=== PATIENT | female | born 1960 | race Caucasian/White ===

== ENCOUNTER → 2018-02-27 | Outpatient (CLI) | payer OTHER ==
[~2018-02-27] MED LIST: ESTR0.5T PO; GLIM4TAB79 PO; LEVO50TA8 PO; LOSA1TAB36 PO; MAGN400C PO; METF500T7 PO; POTA10CA44 PO; SITA100T11 PO
[2018-02-27 06:18] LABS: CLARITY,URINE CLEAR (Clear); COLOR,URINE YELLOW (Yellow); GLUCOSE, URINE NEGATIVE (Neg); KETONES,URINE NEGATIVE (Neg); LEUKOCYTE ESTERASE ,URINE NEGATIVE (Neg); NITRITES, URINE NEGATIVE (Neg); OCCULT BLOOD,URINE NEGATIVE (Neg); PH,URINE 6.5 (4.8-8.0); PROTEIN,URINE NEGATIVE (Neg); UROBILINOGEN,URINE 0.2 E.U/dL (0.2-1.0)
[2018-02-27 06:21] LABS: BASOPHILS % (AUTO) 0.8 % (0-1); EOSINOPHILS # (AUTO) 0.2 X10'3 (0-0.9); HEMOGLOBIN 14.9 g/dl (12.0-16.0); LYMPHOCYTES # (AUTO) 1.7 X10'3 (1.1-4.8); LYMPHOCYTES % (AUTO) 35.9 % (21-51); MEAN CORPUSCULAR HGB CONC 34.7 % (33.0-36.5); MEAN CORPUSCULAR VOLUME 89.4 FL (78-98); MEAN PLATELET VOLUME 7.8 FL (7.4-10.4); MONOCYTES # (AUTO) 0.3 X10'3 (0-0.9); MONOCYTES % (AUTO) 5.9 % (2-12); NEUTROPHILS # (AUTO) 2.5 X10'3 (1.8-7.7); NEUTROPHILS % (AUTO) 52.4 % (42-75); PLATELET COUNT 222 X10'3 (140-440); RED BLOOD COUNT 4.81 X10'6 (4.20-5.60); WHITE BLOOD COUNT 4.7 X10'3 (4.5-11.0)
[2018-02-27 06:33] LABS: UA COLLECTION TYPE NON-SPECIFIED
[2018-02-27 06:36] LABS: HEMOGLOBIN A1C 6.3 % (4.5-6.2)
[2018-02-27 06:46] LABS: ALANINE AMINOTRANSFERASE 31 U/L (12-78); ALBUMIN 3.7 G/DL (3.4-5.0); ALBUMIN/GLOBULIN RATIO 1.2 (1.1-1.5); ALKALINE PHOSPHATASE 69 IU/L (46-116); ANION GAP 9 (8-16); ASPARTATE AMINO TRANSFERASE 18 U/L (10-37); BILIRUBIN,TOTAL 0.8 MG/DL (0.1-1.0); BLOOD UREA NITROGEN 17 MG/DL (7-18); BUN/CREATININE RATIO 28.8 (6.6-38.0); CHLORIDE 103 MMOL/L (99-107); CHOL/HDL RATIO 2.9 (0.00-4.99); CHOLESTEROL 207 MG/DL (0-200); CREATININE 0.59 MG/DL (0.40-0.90); GLUCOSE 116 MG/DL (70-104); HDL CHOLESTEROL 71 MG/DL (35-60); LDL CHOLESTEROL 115 MG/DL (50-100); POTASSIUM 4.2 MMOL/L (3.5-5.1); SODIUM 142 MMOL/L (135-145); TOTAL CARBON DIOXIDE 30.5 MMOL/L (24-32); TOTAL PROTEIN 6.9 G/DL (6.4-8.2); TRIGLYCERIDES 117 MG/DL (20-135); eGFR > 90 ML/MIN
== END | disposition home or self-care (01) ==
LOC: LAB 05:42
PROVIDERS: ATTEND Family Medicine
DX: E11.9 Type 2 diabetes mellitus without complications (principal); N39.0 Urinary tract infection, site not specified; K21.9 Gastro-esophageal reflux disease without esophagitis; E78.5 Hyperlipidemia, unspecified; I10 Essential (primary) hypertension; Z98.84 Bariatric surgery status; Z90.710 Acquired absence of both cervix and uterus; Z79.84 Long term (current) use of oral hypoglycemic drugs; Z87.891 Personal history of nicotine dependence
CPT/HCPCS: 36415; 80053; 80061; 81003; 83036; 85025

== ENCOUNTER 2018-03-04 13:29 | Outpatient (CLI) | payer OTHER ==
[2018-03-04 14:28] LABS: PHOSPHORUS 3.6 MG/DL (2.3-4.5)
[2018-03-06 07:15] LABS: TRANSFERRIN 232 mg/dL (200-370)
[2018-03-06 08:15] LABS: MICROALB/CRT, RATIO 4.5 mg/g creat (0.0-30.0)
== END 2018-03-04 23:59 | disposition home or self-care (01) ==
LOC: LAB 13:29
PROVIDERS: ATTEND Family Medicine
DX: E11.9 Type 2 diabetes mellitus without complications (principal); I10 Essential (primary) hypertension; K21.0 Gastro-esophageal reflux disease with esophagitis; E78.5 Hyperlipidemia, unspecified; R53.81 Other malaise; R53.82 Chronic fatigue, unspecified; E63.9 Nutritional deficiency, unspecified; K80.20 Calculus of gallbladder without cholecystitis without obstruction; Z98.84 Bariatric surgery status; Z90.710 Acquired absence of both cervix and uterus; Z79.84 Long term (current) use of oral hypoglycemic drugs; Z87.891 Personal history of nicotine dependence
CPT/HCPCS: 36415; 82043; 82570; 82607; 82728; 82746; 83540; 83550; 84100; 84134; 84466

== ENCOUNTER 2018-09-17 08:10 | Outpatient (CLI) | payer OTHER | END 2018-09-17 23:59 | disposition home or self-care (01) | LOC: RAD 08:10 | PROVIDERS: ATTEND Family Medicine | DX: M48.07 Spinal stenosis, lumbosacral region (principal); M25.551 Pain in right hip | CPT/HCPCS: 72110; 73522 ==

== ENCOUNTER 2020-03-21 15:32 | Outpatient (CLI) | payer BC ==
[~2020-03-21 15:32] MED LIST changes: +GLIM4TAB7 PO; -GLIM4TAB79 PO; +METF-900 PO; -METF500T7 PO
[2020-03-21 16:29] LABS: BASOPHILS % (AUTO) 0.3 % (0-1); EOSINOPHILS # (AUTO) 0.2 X10'3 (0-0.9); EOSINOPHILS % (AUTO) 3.3 % (0-6); HEMATOCRIT 42.2 % (35.0-45.0); HEMOGLOBIN 14.1 g/dl (12.0-16.0); LYMPHOCYTES # (AUTO) 2.2 X10'3 (1.1-4.8); MEAN CORPUSCULAR HEMOGLOBIN 30.8 PG (27.0-31.0); MEAN CORPUSCULAR HGB CONC 33.5 g/dL (33.0-36.5); MEAN CORPUSCULAR VOLUME 91.9 FL (78-98); MEAN PLATELET VOLUME 7.5 FL (7.4-10.4); MONOCYTES # (AUTO) 0.4 X10'3 (0-0.9); MONOCYTES % (AUTO) 6.7 % (2-12); NEUTROPHILS # (AUTO) 3.5 X10'3 (1.8-7.7); NEUTROPHILS % (AUTO) 54.7 % (42-75); PLATELET COUNT 260 X10'3 (140-440); RED BLOOD COUNT 4.59 X10'6 (4.20-5.60); RED CELL DISTRIBUTION WIDTH 13.1 % (11.5-14.5); WHITE BLOOD COUNT 6.4 X10'3 (4.5-11.0)
[2020-03-21 16:43] LABS: ALANINE AMINOTRANSFERASE 39 U/L (12-78); ALBUMIN/GLOBULIN RATIO 1.1 (1.1-1.5); ANION GAP 9 (8-16); ASPARTATE AMINO TRANSFERASE 20 U/L (10-37); BLOOD UREA NITROGEN 12 MG/DL (7-18); BUN/CREATININE RATIO 17.1 (6.6-38.0); C-REACTIVE PROTEIN 0.18 MG/DL (0.0-0.5); CALCIUM 9.6 MG/DL (8.5-10.1); CHLORIDE 105 MMOL/L (99-107); GLUCOSE 151 MG/DL (70-104); HDL CHOLESTEROL 72 MG/DL (35-60); POTASSIUM 4.1 MMOL/L (3.5-5.1); SODIUM 141 MMOL/L (135-145); TOTAL CARBON DIOXIDE 26.8 MMOL/L (24-32); TOTAL PROTEIN 7.7 G/DL (6.4-8.2); eGFR 85 ML/MIN
[2020-03-21 16:58] LABS: % IRON SATURATION 23 % (11-46); IRON 74 UG/DL (49-151); TOTAL IRON BINDING CAPACITY 322 UG/DL (259-388)
[2020-03-21 17:16] LABS: ALKALINE PHOSPHATASE 83 IU/L (46-116); BILIRUBIN,TOTAL 0.4 MG/DL (0.1-1.0); CHOL/HDL RATIO 2.3 (0.00-4.99); CHOLESTEROL 162 MG/DL (0-200); FERRITIN 90 NG/ML (8-252); LDL CHOLESTEROL 71 MG/DL (50-100); PHOSPHORUS 3.9 MG/DL (2.3-4.5); TRIGLYCERIDES 187 MG/DL (20-135)
== END 2020-03-21 23:59 | disposition home or self-care (01) ==
LOC: LAB 15:32
PROVIDERS: ATTEND Family Medicine
DX: I10 Essential (primary) hypertension (principal); E11.9 Type 2 diabetes mellitus without complications; E03.9 Hypothyroidism, unspecified; E63.9 Nutritional deficiency, unspecified; R53.81 Other malaise; K21.00 Gastro-esophageal reflux disease with esophagitis, without bleeding; R53.82 Chronic fatigue, unspecified; G62.9 Polyneuropathy, unspecified; Z98.84 Bariatric surgery status
CPT/HCPCS: 36415; 80053; 80061; 82043; 82306; 82570; 82607; 82728; 82746; 83540; 83550; 84100; 84439; 84443; 84466; 84550; 85025; 85651; 86140

== ENCOUNTER 2020-08-24 08:49 | Outpatient (CLI) | payer BC ==
[2020-08-24 09:33] LABS: BASOPHILS % (AUTO) 0.4 % (0-1); EOSINOPHILS # (AUTO) 0.2 X10'3 (0-0.9); EOSINOPHILS % (AUTO) 3.4 % (0-6); HEMATOCRIT 41.1 % (35.0-45.0); HEMOGLOBIN 13.8 g/dl (12.0-16.0); LYMPHOCYTES # (AUTO) 1.8 X10'3 (1.1-4.8); LYMPHOCYTES % (AUTO) 29.9 % (21-51); MEAN CORPUSCULAR HEMOGLOBIN 30.5 PG (27.0-31.0); MEAN CORPUSCULAR HGB CONC 33.7 g/dL (33.0-36.5); MEAN CORPUSCULAR VOLUME 90.6 FL (78-98); MEAN PLATELET VOLUME 7.4 FL (7.4-10.4); MONOCYTES # (AUTO) 0.4 X10'3 (0-0.9); MONOCYTES % (AUTO) 6.6 % (2-12); NEUTROPHILS # (AUTO) 3.6 X10'3 (1.8-7.7); NEUTROPHILS % (AUTO) 59.7 % (42-75); PLATELET COUNT 236 X10'3 (140-440); RED BLOOD COUNT 4.53 X10'6 (4.20-5.60); RED CELL DISTRIBUTION WIDTH 13.1 % (11.5-14.5)
[2020-08-24 09:45] LABS: ALBUMIN 3.9 G/DL (3.4-5.0); ANION GAP 8 (8-16); BLOOD UREA NITROGEN 13 MG/DL (7-18); BUN/CREATININE RATIO 20.6 (6.6-38.0); CALCIUM 9.1 MG/DL (8.5-10.1); CHLORIDE 104 MMOL/L (99-107); CREATININE 0.63 MG/DL (0.40-0.90); GLUCOSE 177 MG/DL (70-104); POTASSIUM 3.9 MMOL/L (3.5-5.1); SODIUM 141 MMOL/L (135-145); TOTAL CARBON DIOXIDE 29.3 MMOL/L (24-32); eGFR > 90 ML/MIN
[2020-08-24 09:54] LABS: % IRON SATURATION 28 % (11-46); IRON 94 UG/DL (49-151); TOTAL IRON BINDING CAPACITY 337 UG/DL (259-388)
[2020-08-24 10:11] LABS: ALANINE AMINOTRANSFERASE 30 U/L (12-78); ALBUMIN/GLOBULIN RATIO 1.1 (1.1-1.5); ALKALINE PHOSPHATASE 82 IU/L (46-116); ASPARTATE AMINO TRANSFERASE 23 U/L (10-37); BILIRUBIN,TOTAL 0.5 MG/DL (0.1-1.0); CHOL/HDL RATIO 2.2 (0.00-4.99); CHOLESTEROL 150 MG/DL (0-200); FERRITIN 68 NG/ML (8-252); HDL CHOLESTEROL 69 MG/DL (35-60); LDL CHOLESTEROL 64 MG/DL (50-100); PHOSPHORUS 3.3 MG/DL (2.3-4.5); TOTAL PROTEIN 7.5 G/DL (6.4-8.2); TRIGLYCERIDES 123 MG/DL (20-135)
[2020-08-25 10:26] LABS: MICROALB/CRT, RATIO 11 mg/g creat (0-29); TRANSFERRIN 273 mg/dL (192-364)
== END 2020-08-24 23:59 | disposition home or self-care (01) ==
LOC: LAB 08:49
PROVIDERS: ATTEND Family Medicine
DX: I10 Essential (primary) hypertension (principal); E78.5 Hyperlipidemia, unspecified; R53.82 Chronic fatigue, unspecified; E11.9 Type 2 diabetes mellitus without complications; E55.9 Vitamin D deficiency, unspecified; K21.01 Gastro-esophageal reflux disease with esophagitis, with bleeding; G62.9 Polyneuropathy, unspecified; Z98.84 Bariatric surgery status; Z68.35 Body mass index [BMI] 35.0-35.9, adult
CPT/HCPCS: 36415; 80053; 80061; 82043; 82306; 82570; 82607; 82728; 82746; 83540; 83550; 84100; 84439; 84443; 84466; 85025; 85651

== ENCOUNTER 2020-10-03 15:47 | Outpatient (CLI) | payer BC | END 2020-10-03 23:59 | disposition home or self-care (01) | LOC: RAD 15:47 | PROVIDERS: ATTEND Family Medicine | DX: M25.572 Pain in left ankle and joints of left foot (principal) | CPT/HCPCS: 73610; 73630 ==

== ENCOUNTER 2021-01-17 08:33 | Day surgery (SDC) | payer BC ==
[~2021-01-17] VITALS: Ht 162.6 cm; Wt 88.6 kg
[2021-01-17 08:43] VITALS: BP 166/88
[2021-01-17] MEDS ORDERED: fentaNYL/PF 50MCG/1 ML 2ML syringe ONE (09:03)
[2021-01-17] MEDS ORDERED: MIDAZolam 1 MG/ML 5ML VIAL ONE (09:03)
[2021-01-17 09:55] VITALS: BP 137/79
[2021-01-17 10:05] VITALS: BP 140/92
[2021-01-17 10:15] VITALS: BP 152/96
[2021-01-17 10:25] VITALS: BP 168/93
== END 2021-01-17 10:35 | disposition home or self-care (01) ==
LOC: GI LAB 08:33
PROVIDERS: ATTEND Internal Medicine Gastroenterology
DX: Z12.11 Encounter for screening for malignant neoplasm of colon (principal); K57.30 Diverticulosis of large intestine without perforation or abscess without bleeding; I10 Essential (primary) hypertension; Z86.010 Personal history of colon polyps; Z88.2 Allergy status to sulfonamides; Z88.5 Allergy status to narcotic agent; Z79.899 Other long term (current) drug therapy
CPT/HCPCS: 45378; 99152; J2250; J3010; J7040; Z7512; 99153; A4620

== ENCOUNTER 2021-06-07 09:55 | Outpatient (CLI) | payer BC ==
[~2021-06-07 09:55] MED LIST changes: -ESTR0.5T PO; -GLIM4TAB7 PO; -SITA100T11 PO
== END 2021-06-07 23:59 | disposition home or self-care (01) ==
LOC: RAD 09:55
PROVIDERS: ATTEND Family Medicine
DX: J40 Bronchitis, not specified as acute or chronic (principal)
CPT/HCPCS: 71046

== ENCOUNTER 2021-06-08 08:01 | Outpatient (CLI) | payer BC ==
[2021-06-08 09:07] LABS: BASOPHILS % (AUTO) 0.4 % (0-1); EOSINOPHILS # (AUTO) 0.2 X10'3 (0-0.9); EOSINOPHILS % (AUTO) 2.6 % (0-6); HEMATOCRIT 39.6 % (35.0-45.0); HEMOGLOBIN 13.5 g/dl (12.0-16.0); LYMPHOCYTES # (AUTO) 1.5 X10'3 (1.1-4.8); LYMPHOCYTES % (AUTO) 23.9 % (21-51); MEAN CORPUSCULAR HEMOGLOBIN 30.4 PG (27.0-31.0); MEAN CORPUSCULAR HGB CONC 34.2 g/dL (33.0-36.5); MEAN CORPUSCULAR VOLUME 88.9 FL (78-98); MEAN PLATELET VOLUME 6.7 FL (7.4-10.4); MONOCYTES # (AUTO) 0.4 X10'3 (0-0.9); MONOCYTES % (AUTO) 6.6 % (2-12); NEUTROPHILS # (AUTO) 4.1 X10'3 (1.8-7.7); NEUTROPHILS % (AUTO) 66.5 % (42-75); PLATELET COUNT 311 X10'3 (140-440); RED BLOOD COUNT 4.45 X10'6 (4.20-5.60); RED CELL DISTRIBUTION WIDTH 12.8 % (11.5-14.5); WHITE BLOOD COUNT 6.2 X10'3 (4.5-11.0)
[2021-06-08 09:18] LABS: HEMOGLOBIN A1C 7.5 % (4.5-6.2)
[2021-06-08] MEDS ORDERED: iohexol 300mg/ml 100ml inj. ONE (09:40)
[2021-06-08 09:43] LABS: APTT 27 SECONDS (22-32)
[2021-06-08 10:07] LABS: ALANINE AMINOTRANSFERASE 20 U/L (12-78); ALBUMIN 3.5 G/DL (3.4-5.0); ALBUMIN/GLOBULIN RATIO 0.8 (1.1-1.5); ALKALINE PHOSPHATASE 86 IU/L (46-116); ANION GAP 9 (8-16); ASPARTATE AMINO TRANSFERASE 16 U/L (10-37); BILIRUBIN,TOTAL 0.5 MG/DL (0.1-1.0); BLOOD UREA NITROGEN 12 MG/DL (7-18); BUN/CREATININE RATIO 17.9 (6.6-38.0); CALCIUM 9.3 MG/DL (8.5-10.1); CHLORIDE 100 MMOL/L (99-107); CHOL/HDL RATIO 2.2 (0.00-4.99); CHOLESTEROL 143 MG/DL (0-200); CREATININE 0.67 MG/DL (0.40-0.90); FERRITIN 128 NG/ML (8-252); GLUCOSE 142 MG/DL (70-104); HDL CHOLESTEROL 65 MG/DL (35-60); LDL CHOLESTEROL 50 MG/DL (50-100); PHOSPHORUS 3.1 MG/DL (2.3-4.5); POTASSIUM 3.8 MMOL/L (3.5-5.1); SODIUM 137 MMOL/L (135-145); TOTAL CARBON DIOXIDE 28.2 MMOL/L (24-32); TOTAL PROTEIN 7.7 G/DL (6.4-8.2); TRIGLYCERIDES 97 MG/DL (20-135); eGFR 89 ML/MIN
[2021-06-08 10:21] LABS: % IRON SATURATION 21 % (11-46); IRON 67 UG/DL (49-151); TOTAL IRON BINDING CAPACITY 320 UG/DL (259-388)
[2021-06-08 11:43] LABS: C-REACTIVE PROTEIN 1.74 MG/DL (0.0-0.5)
[2021-06-09 08:19] LABS: TRANSFERRIN 259 mg/dL (192-364)
[2021-06-09 13:45] LABS: MICROALB/CRT, RATIO 19 mg/g creat (0-29)
[2021-06-27] MEDS ORDERED: ALB0.5UD (15:06)
[2021-06-27] MEDS ORDERED: BECL10.6 PO (15:06)
[2021-06-27] MEDS ORDERED: LOSA100T57 PO (15:06)
[2021-06-27] MEDS ORDERED: BACL10TA2 PO (15:06)
== END 2021-06-08 23:59 | disposition home or self-care (01) ==
LOC: RAD 08:01
PROVIDERS: ATTEND Family Medicine
DX: I10 Essential (primary) hypertension (principal); E11.9 Type 2 diabetes mellitus without complications; E78.5 Hyperlipidemia, unspecified; E55.9 Vitamin D deficiency, unspecified; E03.9 Hypothyroidism, unspecified; K21.00 Gastro-esophageal reflux disease with esophagitis, without bleeding; E63.9 Nutritional deficiency, unspecified; K22.2 Esophageal obstruction; R91.8 Other nonspecific abnormal finding of lung field; R53.82 Chronic fatigue, unspecified; G62.9 Polyneuropathy, unspecified; I31.3 Pericardial effusion (noninflammatory); I25.10 Atherosclerotic heart disease of native coronary artery without angina pectoris; I70.0 Atherosclerosis of aorta; K44.9 Diaphragmatic hernia without obstruction or gangrene; Z90.49 Acquired absence of other specified parts of digestive tract; Z98.84 Bariatric surgery status; Z91.89 Other specified personal risk factors, not elsewhere classified
CPT/HCPCS: 71270; 80053; 80061; 82043; 82306; 82570; 82607; 82728; 82746; 83036; 83540; 83550; 83970; 84100; 84439; 84443; 84466; 85025; 85610; 85651; 85730; 86140; Q9967

== ENCOUNTER 2021-06-13 08:35 | Outpatient (CLI) | payer BC | END 2021-06-13 23:59 | disposition home or self-care (01) | LOC: RT 08:35 | PROVIDERS: ATTEND Family Medicine | DX: C34.91 Malignant neoplasm of unspecified part of right bronchus or lung (principal); R91.8 Other nonspecific abnormal finding of lung field; R94.2 Abnormal results of pulmonary function studies | CPT/HCPCS: 94060; 94727; 94729; 94760 ==

== ENCOUNTER 2021-06-20 08:14 | Outpatient (CLI) | payer BC ==
[2021-06-20] MEDS ORDERED: regadenoson 0.4mg/5ml syringe IV ONE (09:30)
[2021-06-20 09:34] VITALS: BP 158/90
[2021-06-20] MEDS ORDERED: aminophylline 250mg/10ml inj. IV ONE (09:35)
[2021-06-20 09:52] VITALS: BP 165/96
[2021-06-20 09:53] VITALS: BP 154/81
[2021-06-20 09:54] VITALS: BP 148/79
[2021-06-20 09:55] VITALS: BP 150/82
[2021-06-20 09:57] VITALS: BP 156/83
== END 2021-06-20 23:59 | disposition home or self-care (01) ==
LOC: RAD 08:14
PROVIDERS: ATTEND Internal Medicine Cardiovascular Disease
DX: I34.0 Nonrheumatic mitral (valve) insufficiency (principal); I31.3 Pericardial effusion (noninflammatory); I10 Essential (primary) hypertension; E78.5 Hyperlipidemia, unspecified
CPT/HCPCS: 78452; 93306; A9500; J0280; J2785

== ENCOUNTER 2021-06-25 15:18 | Outpatient (CLI) | payer BC ==
[2021-06-25 16:25] LABS: HCG SERUM QL NEGATIVE
[2021-06-25 16:29] LABS: LACTATE DEHYDROGENASE 213 U/L (81-234)
[2021-06-27] MEDS ORDERED: BECL10.6 (15:06)
[2021-06-27] MEDS ORDERED: ALB0.5UD (15:06)
[2021-06-27] MEDS ORDERED: BACL10TA2 PO (15:06)
[2021-06-27] MEDS ORDERED: LOSA100T57 PO (15:06)
== END 2021-06-25 23:59 | disposition home or self-care (01) ==
LOC: LAB 15:18
PROVIDERS: ATTEND Surgery
DX: D14.30 Benign neoplasm of unspecified bronchus and lung (principal)
CPT/HCPCS: 36415; 82103; 83615; 84703

== ENCOUNTER 2021-06-29 05:40 | Observation (INO) | payer BC ==
[2021-06-28 09:09] LABS: BASOPHILS % (AUTO) 0.3 % (0-1); EOSINOPHILS # (AUTO) 0.1 X10'3 (0-0.9); EOSINOPHILS % (AUTO) 1.6 % (0-6); LYMPHOCYTES # (AUTO) 1.2 X10'3 (1.1-4.8); LYMPHOCYTES % (AUTO) 20.8 % (21-51); MEAN CORPUSCULAR HEMOGLOBIN 29.9 PG (27.0-31.0); MEAN CORPUSCULAR HGB CONC 33.9 g/dL (33.0-36.5); MEAN CORPUSCULAR VOLUME 88.1 FL (78-98); MEAN PLATELET VOLUME 6.7 FL (7.4-10.4); MONOCYTES # (AUTO) 0.4 X10'3 (0-0.9); NEUTROPHILS # (AUTO) 4.2 X10'3 (1.8-7.7); NEUTROPHILS % (AUTO) 70.3 % (42-75); PRE OP HEMATOCRIT 36.7 % (35.0-45.0); PRE OP HEMOGLOBIN 12.4 g/dL (12.0-16.0); PRE OP PLATELET COUNT 317 X10'3 (140-440); RED BLOOD COUNT 4.16 X10'6 (4.20-5.60); RED CELL DISTRIBUTION WIDTH 13.1 % (11.5-14.5)
[2021-06-28 09:22] LABS: CLARITY,URINE SLIGHTLY CLOUDY (Clear); GLUCOSE, URINE NEGATIVE (Neg); KETONES,URINE TRACE mg/dl (Neg); LEUKOCYTE ESTERASE ,URINE NEGATIVE (Neg); NITRITES, URINE NEGATIVE (Neg); OCCULT BLOOD,URINE NEGATIVE (Neg); PROTEIN,URINE TRACE mg/dl (Neg); UROBILINOGEN,URINE 0.2 E.U/dL (0.2-1.0)
[2021-06-28 09:33] LABS: COLOR,URINE DARK YELLOW (Yellow); UA COLLECTION TYPE CLN CATCH MIDSTREAM
[2021-06-28 09:35] LABS: BACTERIA,URINE FEW /HPF (Neg); MUCUS STRANDS MANY /LPF (Neg); RBC,URINE 0-2 /HPF (0-2); SQUAMOUS EPITHELIAL CELL,UR FEW /LPF (FEW); WBC,URINE 0-4 /HPF (0-4)
[2021-06-28 09:41] LABS: ALBUMIN 3.6 G/DL (3.4-5.0); ALBUMIN/GLOBULIN RATIO 0.9 (1.1-1.5); ALKALINE PHOSPHATASE 89 IU/L (46-116); BLOOD UREA NITROGEN 14 MG/DL (7-18); BUN/CREATININE RATIO 22.6 (6.6-38.0); CALCIUM 9.4 MG/DL (8.5-10.1); CHLORIDE 104 MMOL/L (99-107); CREATININE 0.62 MG/DL (0.40-0.90); PRE OP ALT 20 U/L (30-65); PRE OP AST 14 U/L (10-37); PRE OP BILIRUB, TOTAL 0.5 MG/DL (0.0-1.0); PRE OP GLUCOSE 195 MG/DL (70-104); PRE OP POTASSIUM 4.2 MMOL/L (3.4-5.1); PRE OP SODIUM 144 MMOL/L (135-145); TOTAL PROTEIN 7.4 G/DL (6.4-8.2); eGFR > 90 ML/MIN
[2021-06-28 09:45] LABS: PRE OP ANION GAP 13 (8-16)
[2021-06-28 10:02] LABS: PRE OP INR 1.1 INR
[2021-06-29] VITALS (9 sets, daily range): BP systolic 128–190; BP diastolic 51–95
[~2021-06-29] VITALS: Ht 152.4 cm; Wt 86.0 kg
[~2021-06-29 05:40] MED LIST changes: +ALB0.5UD; +BACL10TA2 PO; +BECL10.6 PO; +LOSA100T57 PO; -LOSA1TAB36 PO; -MAGN400C PO; -METF-900 PO; -POTA10CA44 PO; +albuterol 2.5 MG/3 ML nebule NEB ONE; +cefazolin/dext.iso 2gm/50ml IV ONE; +famotidine 20mg tablet PO ONE; +ringers solution, lacted 1,000 ML IV SCH
[2021-06-29] MEDS ORDERED: LIDOcaine 1% (10mg/ml) 2ml vial ONE (06:47)
[2021-06-29] MEDS ORDERED: sevoflurane 250ml liquid IH ONE (08:24)
[2021-06-29] MEDS ORDERED: ondansetron/PF 4mg/2ml inj ONE (08:24)
[2021-06-29] MEDS ORDERED: midazolam 1 mg/ML 2ml injection ONE (08:28)
[2021-06-29] MEDS ORDERED: ondansetron/PF 4mg/2ml inj IV PRN ×2 (09:15→10:00)
[2021-06-29] MEDS ORDERED: hydrALAZINE 20mg/ml inj. IV PRN (09:15)
[2021-06-29] MEDS ORDERED: meperidine/PF 25mg/ml syringe IV PRN ×3 (09:15)
[2021-06-29] MEDS ORDERED: proCHLORperazine 10 MG/2 ml inj IV PRN (09:15)
[2021-06-29] MEDS ORDERED: acetaminophen 1,000mg/100ml IV 100 ML IV PRN (09:15)
[2021-06-29] MEDS ORDERED: labetalol 20mg/4ml (5mg/ml) syringe IV PRN (09:15)
[2021-06-29] MEDS ORDERED: ringers solution, lacted 1,000 ML IV SCH (09:15)
[2021-06-29] MEDS ORDERED: morphine 4 MG/ML inj SYRINge IV PRN (09:15)
[2021-06-29] MEDS ORDERED: propofol inj 20 ML IV ONE ×2 (09:18)
[2021-06-29] MEDS ORDERED: ePHEDrine 50MG/ML INJ. ONE (09:18)
[2021-06-29] MEDS ORDERED: rocuronium 10mg/ml inj IV ONE (09:18)
[2021-06-29] MEDS ORDERED: fentaNYL /PF 50mcg/ml 5ml ampule ONE (09:18)
[2021-06-29] MEDS ORDERED: LIDOcaine 2% (20mg/ml) 5ml vial ONE (09:18)
[2021-06-29] MEDS ORDERED: dexamethasone sod phosphate 4mg/ml inj. ONE (09:18)
[2021-06-29] MEDS ORDERED: 0.9 % SODIUM CHLORIDE 10 ML VIAL ONE (09:18)
[2021-06-29] MEDS ORDERED: neostigmine methylsulfate 1 MG/ML 10ml vial ONE (09:38)
[2021-06-29] MEDS ORDERED: glycopyrrolate 0.2mg/ml inj ONE (09:38)
[2021-06-29] MEDS ORDERED: Potassium Cl inj 20 MEQ in ringers solution, lacted 1,000 ML IV SCH (10:00)
[2021-06-29] MEDS ORDERED: HYDROcodone/acetaminophen 5mg/325mg tablet PO PRN (10:00)
--- NOTE | 2021-06-29 10:02 | NUR ---
Received from OR via RIP , accompanied by Anesthesiologist DEYSI and report given by Anesthesiolgist. PATIENT WITH 20G PIV IN LEFT AND ART LINE IN RIGHT UE. HYPERTENSIVE OMNI CELL REBOOTING. WILL ADMINISTER MEDS ARDEN ONCE BOOTED UP. PATIENT WITH SINGLE DRESSING TO UPPER STERNUM. Addendum: 06/29/21 at 1010 by Prabhu Thurman RN, RN Amended: Links added.
[2021-06-29] MEDS ORDERED: potassium 20mEq/D5LR 1,000 ML IV SCH (10:30)
--- NOTE | 2021-06-29 11:12 | NUR ---
PATIENT HAS MET ALL CRITERIA FOR TRANSFER TO THE SURGICAL/LUIS/PCU/ORTHO/ICU FLOOR. VSS. DRESSINGS INTACT. BED LOW, CALL LIGHT PRESENT AND 2 RAILS UP. RN PRESENT TO ACCEPT CARE OF PATIENT AND REPORT HAS BEEN CALLED. ALL QUESTIONS ANSWERED TO ACCEPTING RN. DRESSING TO STERNUM CDI AT THIS TIME AND RN PRESENT TO ACCEPT PATIENT. PATIENT ABLE TO SCOOT FROM GURNEY TO BED INDEPENDENTLY. Addendum: 06/29/21 at 1122 by Prabhu Gates - FAVIAN RN Amended: Links added.
--- NOTE | 2021-06-29 11:30 | NUR ---
Patient admitted to ACCE AAOX3 DX:paratracheal mass, mediastenoscopy.c/o pain, pain med administered as prescribed. V/S as follow T98.3 HR87 R14 B/P128/82 O2 94%
[2021-06-29] MEDS: morphine 2 MG/ML inj. syringe IV PRN ×2 (11:48→14:31)
[2021-06-29] MEDS ORDERED: Chloraseptic (Phenol) Spray 177ml MM PRN (12:55)
[2021-06-29] MEDS ORDERED: ALBU17AE26 PO (13:18)
[2021-06-29] MEDS ORDERED: ceFAZolin/D5W- 1GM premix 50 ML IV SCH (16:00)
== END 2021-06-29 17:49 | disposition home or self-care (01) ==
LOC: PAS 05:40 → MED 3N 09:58
PROVIDERS: ADMIT Surgery; ATTEND Surgery
DX: J39.8 Other specified diseases of upper respiratory tract (principal); Z20.822 Contact with and (suspected) exposure to COVID-19; J45.909 Unspecified asthma, uncomplicated; E11.9 Type 2 diabetes mellitus without complications; I10 Essential (primary) hypertension; E78.00 Pure hypercholesterolemia, unspecified; Z87.891 Personal history of nicotine dependence; Z79.899 Other long term (current) drug therapy
CPT/HCPCS: 36415; 39401; 71045; 80053; 81001; 82948; 85025; 85610; 85730; 86885; 86900; 86901; 87635; 93005; 96365; 96375; 96376; A6258; C1758; C9803; G0378; J0360; J0690; J1100; J2250; J2270; J2405; J2704; J2710; J3010; J3480; J3490; J7120; A4215; A4618; A7000

== ENCOUNTER 2021-07-10 08:48 | Outpatient (CLI) | payer BC ==
[~2021-07-10 08:48] MED LIST changes: +ALBU17AE26 PO; -albuterol 2.5 MG/3 ML nebule NEB ONE; -cefazolin/dext.iso 2gm/50ml IV ONE; -famotidine 20mg tablet PO ONE; -ringers solution, lacted 1,000 ML IV SCH
[2021-07-10] MEDS ORDERED: iohexol 300mg/ml 100ml inj. ONE (09:04)
== END 2021-07-10 23:59 | disposition home or self-care (01) ==
LOC: 64 CT 08:48
PROVIDERS: ATTEND Internal Medicine Hematology & Oncology
DX: C34.02 Malignant neoplasm of left main bronchus (principal)
CPT/HCPCS: 70470; Q9967

== ENCOUNTER 2021-07-12 07:07 | Day surgery (SDC) | payer BC ==
[~2021-07-12] VITALS: Ht 162.6 cm; Wt 88.0 kg
[~2021-07-12 07:07] MED LIST changes: -ALB0.5UD
[2021-07-12] MEDS ORDERED: normal saline 1000ml 1,000 ML IV PRN (07:30)
[2021-07-12] MEDS ORDERED: TYLENOL PO (08:05)
[2021-07-12] MEDS ORDERED: ONDA4TAB12 PO (08:05)
[2021-07-12] MEDS ORDERED: ALLO300T8 PO (08:05)
[2021-07-12] MEDS ORDERED: BENZ-49 PO (08:05)
[2021-07-12] MEDS ORDERED: LORA10TA7 PO (08:05)
[2021-07-12 08:15] VITALS: BP 154/91
[2021-07-12] MEDS ORDERED: heparin sodium, porcine/PF 100unit/ml 5ML syringe ONE (08:45)
[2021-07-12] MEDS ORDERED: LIDOcaine 1% 30ml preserv. free vial ONE (08:45)
[2021-07-12] MEDS ORDERED: midazolam 1 mg/ML 2ml injection ONE (08:45)
[2021-07-12] MEDS ORDERED: fentaNYL/PF 50MCG/1 ML 2ML syringe ONE ×2 (08:45→09:57)
[2021-07-12] MEDS ORDERED: normal saline 1000ml 1,000 ML IV SCH (09:10)
[2021-07-12] MEDS ORDERED: iohexol 300 MG/1 ML 50ml polymer ONE (09:40)
[2021-07-12 11:45] VITALS: BP 154/91
== END 2021-07-12 11:45 | disposition home or self-care (01) ==
LOC: SSTAY O 07:07
PROVIDERS: ATTEND Radiology Diagnostic Radiology
DX: C34.02 Malignant neoplasm of left main bronchus (principal); I10 Essential (primary) hypertension; E11.9 Type 2 diabetes mellitus without complications; Z85.118 Personal history of other malignant neoplasm of bronchus and lung; Z90.710 Acquired absence of both cervix and uterus; Z98.890 Other specified postprocedural states; Z87.891 Personal history of nicotine dependence; Z88.2 Allergy status to sulfonamides; Z88.5 Allergy status to narcotic agent; Z79.899 Other long term (current) drug therapy; Z83.3 Family history of diabetes mellitus
CPT/HCPCS: 36561; 76937; 77001; 99152; 99153; C1769; C1788; C1894; J1642; J2250; J3010; J3490; Q9967

== ENCOUNTER 2021-07-16 12:06 | Outpatient (CLI) | payer BC ==
[~2021-07-16 12:06] MED LIST changes: -ALBU17AE26 PO; +ALLO300T8 PO; -BACL10TA2 PO; -BECL10.6 PO; +BENZ-49 PO; +LORA10TA7 PO; +ONDA4TAB12 PO; +TYLENOL PO
[2021-07-16 12:51] LABS: BASOPHILS % (AUTO) 0.4 % (0-1); EOSINOPHILS # (AUTO) 0.1 X10'3 (0-0.9); EOSINOPHILS % (AUTO) 1.8 % (0-6); HEMATOCRIT 36.4 % (35.0-45.0); LYMPHOCYTES # (AUTO) 1.3 X10'3 (1.1-4.8); LYMPHOCYTES % (AUTO) 22.6 % (21-51); MEAN CORPUSCULAR HEMOGLOBIN 29.4 PG (27.0-31.0); MEAN CORPUSCULAR HGB CONC 33.1 g/dL (33.0-36.5); MEAN PLATELET VOLUME 7.2 FL (7.4-10.4); MONOCYTES # (AUTO) 0.4 X10'3 (0-0.9); MONOCYTES % (AUTO) 7.5 % (2-12); NEUTROPHILS % (AUTO) 67.7 % (42-75); PLATELET COUNT 276 X10'3 (140-440); RED BLOOD COUNT 4.09 X10'6 (4.20-5.60); RED CELL DISTRIBUTION WIDTH 13.1 % (11.5-14.5)
[2021-07-16 13:16] LABS: ALANINE AMINOTRANSFERASE 18 U/L (12-78); ALBUMIN 3.3 G/DL (3.4-5.0); ALBUMIN/GLOBULIN RATIO 0.8 (1.1-1.5); ALKALINE PHOSPHATASE 88 IU/L (46-116); ANION GAP 11 (8-16); ASPARTATE AMINO TRANSFERASE 14 U/L (10-37); BILIRUBIN,TOTAL 0.4 MG/DL (0.1-1.0); BLOOD UREA NITROGEN 18 MG/DL (7-18); BUN/CREATININE RATIO 24.7 (6.6-38.0); CALCIUM 8.9 MG/DL (8.5-10.1); CHLORIDE 103 MMOL/L (99-107); CREATININE 0.73 MG/DL (0.40-0.90); FERRITIN 143 NG/ML (8-252); GLUCOSE 247 MG/DL (70-104); MAGNESIUM 1.4 MG/DL (1.5-2.4); SODIUM 142 MMOL/L (135-145); TOTAL CARBON DIOXIDE 28.4 MMOL/L (24-32); TOTAL PROTEIN 7.3 G/DL (6.4-8.2); eGFR 81 ML/MIN
[2021-07-16 14:02] LABS: % IRON SATURATION 15 % (11-46); IRON 43 UG/DL (49-151); TOTAL IRON BINDING CAPACITY 292 UG/DL (259-388)
[2021-07-18 11:31] LABS: TRANSFERRIN 247 mg/dL (192-364)
== END 2021-07-16 23:59 | disposition home or self-care (01) ==
LOC: LAB 12:06
PROVIDERS: ATTEND Internal Medicine Hematology & Oncology
DX: C34.90 Malignant neoplasm of unspecified part of unspecified bronchus or lung (principal); I87.1 Compression of vein
CPT/HCPCS: 36415; 80053; 82607; 82728; 83540; 83550; 83735; 84466; 85025

== ENCOUNTER 2021-07-19 06:45 | Day surgery (SDC) | payer BC ==
[~2021-07-19] VITALS: Ht 162.6 cm; Wt 87.7 kg
[2021-07-19] MEDS ORDERED: PROC5TAB56 PO (07:45)
[2021-07-19] MEDS ORDERED: METF-900 PO (07:45)
[2021-07-19 07:58] VITALS: BP 146/75
[2021-07-19] MEDS ORDERED: tPA-cathflo 2 MG/2 ml IV flush ONE (08:28)
[2021-07-19] MEDS ORDERED: iohexol 300 MG/1 ML 50ml polymer ONE (08:28)
[2021-07-19 09:09] VITALS: BP 156/79
[2021-07-19 09:24] VITALS: BP 140/71
== END 2021-07-19 09:55 | disposition home or self-care (01) ==
LOC: SSTAY O 06:45
PROVIDERS: ATTEND Radiology Diagnostic Radiology
DX: T82.598A Other mechanical complication of other cardiac and vascular devices and implants, initial encounter (principal); C34.02 Malignant neoplasm of left main bronchus; Z88.2 Allergy status to sulfonamides; Z88.5 Allergy status to narcotic agent; Y83.8 Other surgical procedures as the cause of abnormal reaction of the patient, or of later complication, without mention of misadventure at the time of the procedure; Y92.89 Other specified places as the place of occurrence of the external cause
CPT/HCPCS: 36598; J2997; Q9967

== ENCOUNTER 2021-07-22 13:34 | Inpatient (IN) | payer BC ==
[2021-07-22] VITALS (14 sets, daily range): BP systolic 47–118; BP diastolic 22–68
[~2021-07-22] VITALS: Ht 162.6 cm; Wt 98.9 kg
[~2021-07-22 13:34] MED LIST changes: +LIDOCAINE 2% 5 ML JELLY.ML. tube MM ONE; +METF-900 PO; +PROC5TAB56 PO; +rocuronium 10mg/ml inj IV ONE
[2021-07-22] MEDS ORDERED: normal saline 1000ML IV soln IV ONE (13:45)
--- NOTE | 2021-07-22 13:45 | NUR ---
Epi 0.5 mg IV once now for blood pressure and heart rate control.
--- NOTE | 2021-07-22 13:51 | NUR ---
Calicium Chloride 1,000 mg administered.
[2021-07-22 14:05] LABS: BASOPHILS % (AUTO) 0.1 % (0-1); EOSINOPHILS % (AUTO) 0 % (0-6); LYMPHOCYTES # (AUTO) 0.9 X10'3 (1.1-4.8); LYMPHOCYTES % (AUTO) 2.2 % (21-51); MEAN PLATELET VOLUME 8.2 FL (7.4-10.4); MONOCYTES # (AUTO) 0.4 X10'3 (0-0.9); NEUTROPHILS # (AUTO) 39.4 X10'3 (1.8-7.7); NEUTROPHILS % (AUTO) 96.7 % (42-75); PLATELET COUNT 349 X10'3 (140-440)
--- NOTE | 2021-07-22 14:06 | NUR ---
Arterial line placed by Dr. Romero
[2021-07-22 14:07] LABS: WHITE BLOOD COUNT 40.7 X10'3 (4.5-11.0)
[2021-07-22] MEDS ORDERED: iohexol 350MG/ML 100ml bottle IV ONE (14:07)
[2021-07-22 14:14] LABS: HEMATOCRIT 38.1 % (35.0-45.0); HEMOGLOBIN 12.2 g/dl (12.0-16.0); MEAN CORPUSCULAR HEMOGLOBIN 29.9 PG (27.0-31.0); MEAN CORPUSCULAR VOLUME 93.4 FL (78-98); RED BLOOD COUNT 4.08 X10'6 (4.20-5.60); RED CELL DISTRIBUTION WIDTH 13.3 % (11.5-14.5)
[2021-07-22] MEDS ORDERED: CefTRIAXone 2gm/D5W 50ml BAG 50 ML IV ONE (14:15)
[2021-07-22] MEDS ORDERED: sodium bicarbonate (8.4%) inj. 100 MEQ in dextrose 5%-water 1,000 ML IV ONE (14:15)
--- NOTE | 2021-07-22 14:15 | NUR ---
Per dr. Romero verbal order patient received 2 amps of bicarb 100 mEq IV once now.
--- NOTE | 2021-07-22 14:19 | NUR ---
Central line ok for use per Dr. Romero.
[2021-07-22] MEDS ORDERED: NOREPINEPHRINE BITARTRATE/D5W 250 ML IV PRN ×2 (14:20→14:40)
--- NOTE | 2021-07-22 14:22 | NUR ---
Administered 0.25 mg epi IV through central line per Dr. Cruz [facility] verbal order due to blood pressure of 79/40 mmHg. Patient blood pressure increased to 165/100 mmHg.
[2021-07-22 14:27] LABS: BURR CELLS 1+; PLATELET ESTIMATE NORMAL; TOTAL CELLS COUNTED 100
[2021-07-22] MEDS ORDERED: DEXTROSE 15 GM of carb/4 tabs (each vial/BOTTLE has 4 tablets) PO PRN ×2 (14:40)
[2021-07-22] MEDS ORDERED: LIDOcaine 2% 10ml TOPICAL JELLY (Urojet) TP ONE (14:40)
[2021-07-22] MEDS ORDERED: insulin Lispro (HumaLOG) vial - multi-dose SQ SCH (14:40)
[2021-07-22] MEDS ORDERED: PERFLUTREN PROTEIN-A MICROSPHR (Optison) 0.22 MG/ML 3ML VIAL IV ONE (14:40)
[2021-07-22] MEDS ORDERED: magnesium hydroxide 30ml (MOM) UD suspension PO PRN (14:40)
[2021-07-22] MEDS ORDERED: dextrose 50%-water 50ml dispensing syringe IV PRN ×2 (14:40)
[2021-07-22] MEDS ORDERED: MESSAGE TO PHARMACY PO ONE (14:40)
[2021-07-22] MEDS ORDERED: acetaminophen 325mg tablet PO PRN (14:40)
[2021-07-22] MEDS ORDERED: ondansetron/PF 4mg/2ml inj IV PRN (14:40)
[2021-07-22] MEDS: midazolam 100mg in NS 100ml 100 ML IV SCH ×2 (14:40→19:04)
[2021-07-22] MEDS ORDERED: potassium Cl 20 mEq SR tablet PO PRN ×4 (14:40→22:30)
[2021-07-22] MEDS ORDERED: glucagon, human recombinant 1mg kit SUBCUT PRN (14:40)
[2021-07-22 14:45] LABS: ALANINE AMINOTRANSFERASE 31 U/L (12-78); ALBUMIN/GLOBULIN RATIO 0.7 (1.1-1.5); ALKALINE PHOSPHATASE 174 IU/L (46-116); ASPARTATE AMINO TRANSFERASE 49 U/L (10-37); BILIRUBIN,TOTAL 0.2 MG/DL (0.1-1.0); BLOOD UREA NITROGEN 129 MG/DL (7-18); BUN/CREATININE RATIO 17.5 (6.6-38.0); CALCIUM 9.3 MG/DL (8.5-10.1); CREATINE KINASE 146 U/L (26-192); CREATININE 7.36 MG/DL (0.40-0.90); GLUCOSE 151 MG/DL (70-104); MAGNESIUM 3.4 MG/DL (1.5-2.4); TOTAL PROTEIN 7.6 G/DL (6.4-8.2); eGFR 6 ML/MIN
[2021-07-22 14:48] LABS: TOTAL CARBON DIOXIDE < 5 MMOL/L (24-32)
--- NOTE | 2021-07-22 14:56 | NUR ---
notified md saunders 31.7
[2021-07-22 15:03] LABS: ABG BASE EXCESS -30.8 mmol/L (-2.0-2.0); ABG HCO3 3.7 mmol/L (22.0-26.0); ABG OXYGEN SATURATION 97.8 % (94-97); ABG PCO2 (T) 21.2 mmHg (32.0-45.0); ABG PO2 (T) 125.8 mmHg (75.0-100.0); FCOHb 0.3 % (0.0-3.9); FMetHb 0.3 % (0.0-1.5); FO2Hb 97.2 % (94-97); PATIENT TEMPERATURE 31.7; PEEP 5 cm H2O; RESPIRATORY RATE 24 b/min; TIDAL VOLUME 400 mL; TOTAL HEMOGLOBIN 11.9 G/dl (12.0-16.0)
--- NOTE | 2021-07-22 15:25 | NUR ---
Patient to CT then to ICU with RT and Primary RN.
[2021-07-22 15:26] LABS: ACETAMINOPHEN 8.4 UG/ML (10-30)
[2021-07-22 15:58] LABS: CHLORIDE 98 MMOL/L (99-107); POTASSIUM 4.6 MMOL/L (3.3-5.1); SODIUM 149 MMOL/L (135-145)
[2021-07-22 15:59] LABS: ANION GAP 46 (8-12); CARBON DIOXIDE < 5 MMOL/L (24-32)
[2021-07-22] MEDS ORDERED: albumin (human) 25% 100ml IV 100 ML IV PRN (16:25)
[2021-07-22] MEDS ORDERED: heparin 1,000 units/ml 10ml inj IV ONE (16:25)
[2021-07-22] MEDS ORDERED: heparin 1,000unit/ml 10ml vial 10 ML IV ONE (16:25)
[2021-07-22] MEDS ORDERED: ZOLP5TAB8 PO (16:30)
[2021-07-22] MEDS ORDERED: OLAN2.5T28 PO (16:30)
[2021-07-22] MEDS ORDERED: LORA-268 PO (16:30)
[2021-07-22] MEDS ORDERED: LEVO50TA PO (16:30)
[2021-07-22] MEDS ORDERED: ALBU8.5H17 PO (16:30)
[2021-07-22] MEDS ORDERED: ROSU5TAB12 PO (16:30)
[2021-07-22] MEDS ORDERED: ALLO100T PO (16:30)
[2021-07-22] MEDS ORDERED: LIDO700A47 TOP (16:30)
[2021-07-22] MEDS ORDERED: HYDR-3965 PO (16:30)
[2021-07-22] MEDS ORDERED: BACL10TA2 PO (16:30)
[2021-07-22] MEDS ORDERED: BECL10.6 PO (16:30)
[2021-07-22] MEDS ORDERED: heparin 1,000 units/ml 10ml inj HE ONE ×2 (16:30)
[2021-07-22] MEDS ORDERED: PROC10TA10 PO (16:30)
[2021-07-22] MEDS ORDERED: ONDA-104 PO (16:30)
[2021-07-22] MEDS ORDERED: ringers solution, lacted 1,000 ML IV ONE (17:25)
[2021-07-22] MEDS ORDERED: amiodarone 150mg/dext, iso-os 100 ML IV ONE (17:45)
[2021-07-22] MEDS ORDERED: amiodarone 50MG/ML inj IV ONE (17:50)
--- NOTE | 2021-07-22 18:30 | NUR ---
Patient in room CICU 2010. I have received report from Keeley BALLESTEROS and had the opportunity to ask questions and assume patient care.
[2021-07-22] MEDS ORDERED: VANCOMYCIN IV ONE (18:50)
[2021-07-22] MEDS ORDERED: NS IV ONE (18:50)
--- NOTE | 2021-07-22 18:51 | NUR ---
1545- Pt arrived via gurney, non responsive, art line infiltrated, small visible hematoma. pupils equal and responsive, pt temp 31.2, comfirmed with temporal thermometer also. dc'd right groin art line. WBC elevated, attributed to neupogen injection yesterday. 1615- Dr Muller placing an art line and barb cath in left groin. 1630- Dr Squires rounded. Dialysis tomorrow also. 1700- Going into a fib, BP 77/38, notified, give the 1 liter bolus of LR now instead of after dialysis, 150mg amiodarone bolus only x 1. , ABG 30 minutes after HD completed.
[2021-07-22] MEDS: NORepinephrine 8mg/ 250ml NS 250 ML IV PRN ×3 (18:53→22:46)
--- NOTE | 2021-07-22 18:59 | NUR ---
Problems reprioritized. Patient report given, questions answered & plan of care reviewed with Jo Ann.
--- NOTE | 2021-07-22 19:30 | NUR ---
Spoke with Dr Menchaca regarding patient being in Afib with a rate in the 150-160. New orders received to start Amnio drip
[2021-07-22] MEDS: amiodarone/D5 360MG/200ML BAG 200 ML IV SCH (19:33)
[2021-07-22] MEDS: famotidine/PF 10 mg/ml inj IV SCH (20:20)
[2021-07-22] MEDS: cefepime 1GM in D5W 50mL 50 ML IV SCH (20:21)
[2021-07-22 20:44] LABS: ABG BASE EXCESS -15.1 mmol/L (-2.0-2.0); ABG HCO3 9.7 mmol/L (22.0-26.0); ABG OXYGEN SATURATION 98.2 % (94-97); ABG PCO2 (T) 19.5 mmHg (32.0-45.0); ABG PO2 (T) 106.4 mmHg (75.0-100.0); FCOHb 0.3 % (0.0-3.9); FMetHb 0.3 % (0.0-1.5); FO2Hb 97.6 % (94-97); PATIENT TEMPERATURE 35.1; PEEP 5 cm H2O; RESPIRATORY RATE 24 b/min; TIDAL VOLUME 400 mL; TOTAL HEMOGLOBIN 12.3 G/dl (12.0-16.0)
[2021-07-22] MEDS ORDERED: sennosides/docusate sodium tablet PO SCH (21:00)
[2021-07-22] MEDS: dexmedetomidine/D5W 100mL 100 ML IV SCH (21:40)
[2021-07-22 21:46] LABS: BASOPHILS # (AUTO) 0.1 X10'3 (0-0.2); BASOPHILS % (AUTO) 0.3 % (0-1); EOSINOPHILS % (AUTO) 0 % (0-6); HEMATOCRIT 32.9 % (35.0-45.0); HEMOGLOBIN 10.8 g/dl (12.0-16.0); LYMPHOCYTES # (AUTO) 0.4 X10'3 (1.1-4.8); LYMPHOCYTES % (AUTO) 1.8 % (21-51); MEAN CORPUSCULAR HEMOGLOBIN 29.4 PG (27.0-31.0); MEAN CORPUSCULAR HGB CONC 32.8 g/dL (33.0-36.5); MEAN CORPUSCULAR VOLUME 89.6 FL (78-98); MEAN PLATELET VOLUME 7.6 FL (7.4-10.4); MONOCYTES # (AUTO) 0.1 X10'3 (0-0.9); MONOCYTES % (AUTO) 0.3 % (2-12); NEUTROPHILS # (AUTO) 23.6 X10'3 (1.8-7.7); NEUTROPHILS % (AUTO) 97.6 % (42-75); PLATELET COUNT 282 X10'3 (140-440); RED BLOOD COUNT 3.67 X10'6 (4.20-5.60); RED CELL DISTRIBUTION WIDTH 13.3 % (11.5-14.5); WHITE BLOOD COUNT 24.2 X10'3 (4.5-11.0)
--- NOTE | 2021-07-22 22:00 | NUR ---
Dr Menchaca at bedside via [employer] [facility] to complete patient assessment. New orders received. Criticals called to
--- NOTE | 2021-07-22 22:00 | NUR ---
New orders for EKG.
[2021-07-22 22:09] LABS: ALANINE AMINOTRANSFERASE 45 U/L (12-78); ALBUMIN 2.9 G/DL (3.4-5.0); ALBUMIN/GLOBULIN RATIO 0.9 (1.1-1.5); ALKALINE PHOSPHATASE 123 IU/L (46-116); ASPARTATE AMINO TRANSFERASE 86 U/L (10-37); BILIRUBIN,DIRECT 0.2 MG/DL (0-0.3); BILIRUBIN,TOTAL 0.5 MG/DL (0.1-1.0); BLOOD UREA NITROGEN 56 MG/DL (7-18); BUN/CREATININE RATIO 16.3 (6.6-38.0); CALCIUM 7.7 MG/DL (8.5-10.1); CHLORIDE 98 MMOL/L (99-107); CREATININE 3.43 MG/DL (0.40-0.90); GLUCOSE 239 MG/DL (70-104); LACTATE DEHYDROGENASE 445 U/L (81-234); PHOSPHORUS 5.9 MG/DL (2.3-4.5); SODIUM 142 MMOL/L (135-145); eGFR 14 ML/MIN
[2021-07-22 22:12] LABS: ANION GAP 36 (8-16)
[2021-07-22 22:13] LABS: POTASSIUM 2.7 MMOL/L (3.5-5.1); TOTAL CARBON DIOXIDE 8.5 MMOL/L (24-32)
[2021-07-22] MEDS ORDERED: magnesium 4gm in 100ml NS 100 ML IV PRN (22:30)
[2021-07-22] MEDS: K and/or MAG REPLACEMENT MC SCH (22:30)
[2021-07-22] MEDS ORDERED: magnesium 2GM in 50ml NS 50 ML IV PRN (22:30)
[2021-07-22] MEDS: potassium Cl 20mEq/100mL bag 100 ML IV PRN ×2 (22:51→23:34)
[2021-07-23] VITALS (35 sets, daily range): BP systolic 51–180; BP diastolic 25–85
[2021-07-23] MEDS: potassium Cl 20mEq/100mL bag 100 ML IV PRN ×4 (00:21→20:34)
[2021-07-23] MEDS: amiodarone/D5 360MG/200ML BAG 200 ML IV SCH (00:21)
[2021-07-23] MEDS: NORepinephrine 8mg/ 250ml NS 250 ML IV PRN (00:21)
[2021-07-23] MEDS: midazolam 100mg in NS 100ml 100 ML IV SCH ×2 (01:20→18:56)
[2021-07-23] MEDS: NORepinephrine 32 MG in Normal Saline 250ml IV soln IV SCH ×2 (02:05→18:55)
[2021-07-23] MEDS ORDERED: vasopressin inj. 40 UNIT in dextrose 5%-water 50ml 38 ML IV SCH (02:25)
[2021-07-23 02:45] LABS: ABG BASE EXCESS -18.8 mmol/L (-2.0-2.0); ABG HCO3 6.9 mmol/L (22.0-26.0); ABG OXYGEN SATURATION 98.6 % (94-97); ABG PO2 (T) 161.1 mmHg (75.0-100.0); FCOHb 0.2 % (0.0-3.9); FMetHb 0.3 % (0.0-1.5); FO2Hb 98.1 % (94-97); PATIENT TEMPERATURE 36.6; PEEP 5 cm H2O; RESPIRATORY RATE 24 b/min; TIDAL VOLUME 400 mL
[2021-07-23] MEDS ORDERED: sodium bicarbonate (8.4%) inj. 150 MEQ in dextrose 5%-water 1,000 ML IV SCH (02:55)
[2021-07-23 03:28] LABS: BASOPHILS % (AUTO) 0.2 % (0-1); EOSINOPHILS % (AUTO) 0.1 % (0-6); HEMATOCRIT 32.9 % (35.0-45.0); HEMOGLOBIN 10.8 g/dl (12.0-16.0); LYMPHOCYTES # (AUTO) 0.4 X10'3 (1.1-4.8); LYMPHOCYTES % (AUTO) 2.3 % (21-51); MEAN CORPUSCULAR HEMOGLOBIN 29.5 PG (27.0-31.0); MEAN CORPUSCULAR HGB CONC 32.8 g/dL (33.0-36.5); MEAN CORPUSCULAR VOLUME 89.7 FL (78-98); MEAN PLATELET VOLUME 7.8 FL (7.4-10.4); MONOCYTES # (AUTO) 0.1 X10'3 (0-0.9); MONOCYTES % (AUTO) 0.5 % (2-12); NEUTROPHILS # (AUTO) 18.4 X10'3 (1.8-7.7); NEUTROPHILS % (AUTO) 96.9 % (42-75); PLATELET COUNT 269 X10'3 (140-440); RED BLOOD COUNT 3.67 X10'6 (4.20-5.60); RED CELL DISTRIBUTION WIDTH 13.2 % (11.5-14.5)
[2021-07-23 03:49] LABS: ALBUMIN 2.6 G/DL (3.4-5.0); BLOOD UREA NITROGEN 53 MG/DL (7-18); BUN/CREATININE RATIO 13.6 (6.6-38.0); CALCIUM 7.2 MG/DL (8.5-10.1); CHLORIDE 99 MMOL/L (99-107); CREATININE 3.89 MG/DL (0.40-0.90); GLUCOSE 253 MG/DL (70-104); MAGNESIUM 1.7 MG/DL (1.5-2.4); PHOSPHORUS 5.8 MG/DL (2.3-4.5); POTASSIUM 4.5 MMOL/L (3.5-5.1); SODIUM 140 MMOL/L (135-145); eGFR 12 ML/MIN
[2021-07-23 03:52] LABS: ANION GAP 34 (8-16)
[2021-07-23 04:09] LABS: TOTAL CARBON DIOXIDE 7.1 MMOL/L (24-32)
[2021-07-23] MEDS ORDERED: Insulin Reg/NS 100units/100mL 100 ML IV SCH (04:30)
[2021-07-23] MEDS ORDERED: calcium chloride 100 MG/1 ML inj IV ONE ×2 (04:30)
[2021-07-23] MEDS ORDERED: heparin 1,000 units/ml 10ml inj IV ONE (05:55)
[2021-07-23] MEDS ORDERED: albumin (human) 25% 100ml IV 100 ML IV PRN (05:55)
[2021-07-23] MEDS ORDERED: heparin 1,000unit/ml 10ml vial 10 ML IV ONE (05:55)
[2021-07-23] MEDS ORDERED: EPOETIN ALFA-EPBX 20,000 UNIT/ML 1 ML MDV IV ONE (05:55)
[2021-07-23] MEDS ORDERED: heparin 1,000 units/ml 10ml inj HE ONE ×2 (06:00)
[2021-07-23 06:05] LABS: TOTAL CELLS COUNTED 100
[2021-07-23 06:06] LABS: PLATELET ESTIMATE NORMAL
[2021-07-23] MEDS ORDERED: VANCOMYCIN 1GM/200ML IVPB 200 ML IV PRN (07:55)
[2021-07-23] MEDS: K and/or MAG REPLACEMENT MC SCH (08:00)
[2021-07-23] MEDS ORDERED: K and/or MAG REPLACEMENT MC SCH (08:00)
[2021-07-23 08:15] LABS: VANCOMYCIN,RANDOM 36.3 UG/ML
[2021-07-23] MEDS: famotidine/PF 10 mg/ml inj IV SCH (08:40)
[2021-07-23] MEDS: enoxaparin 30mg/0.3ml syringe SUBCUT SCH (08:41)
[2021-07-23] MEDS: cefepime 1GM in D5W 50mL 50 ML IV SCH (08:43)
[2021-07-23] MEDS: dexmedetomidine/D5W 100mL 100 ML IV SCH ×2 (09:22→21:04)
[2021-07-23 09:50] LABS: ABG PCO2 (T) 28.3 mmHg (32.0-45.0); ABG PO2 (T) 527.6 mmHg (75.0-100.0); FCOHb 0.3 % (0.0-3.9); FO2Hb 98.5 % (94-97); TOTAL HEMOGLOBIN 12.7 G/dl (12.0-16.0)
[2021-07-23 09:51] LABS: ABG OXYGEN SATURATION 99.4 % (94-97); FMetHb 0.6 % (0.0-1.5)
[2021-07-23 09:56] LABS: ABG BASE EXCESS -9.7 mmol/L (-2.0-2.0); ABG HCO3 14.5 mmol/L (22.0-26.0); ABG OXYGEN SATURATION 96.5 % (94-97); ABG PO2 (T) 86.8 mmHg (75.0-100.0); FCOHb 0.2 % (0.0-3.9); FMetHb 0.3 % (0.0-1.5); PEEP 5 cm H2O; RESPIRATORY RATE 14 b/min; TIDAL VOLUME 400 mL
--- NOTE | 2021-07-23 13:18 | NUR ---
TF/Malnutrition Consult: Pt intubated, admit dx acute respiratory failure, severe metabolic acidosis, encephalopathy, tumor lysis syndrome, acute renal failure, and hyperammonemia per EMR. Noted pt recently diagnosed w/ small cell lung CA and began radiation and chemotherapy prior to admit per EMR. Noted hx of DM w/ A1c of 7.5 05/2021. Pt not appropriate for DM education given current condition, will defer until pt more appropriate. Receiving sodium bicarbonate/D5 at 100 ml/hr providing 408 kcals/d; on HD, received a fluid bolus of 1100 ml 07/22 per EMR. Sodium bicarb/D5 to stop following HD, w/ start of nutrition per food and beverage service manager. See TF recs below, using IBW pending scaled wt. Noted wt loss of 2-13 lbs per RN malnutrition screen. Pt w/ no visible muscle or fat wasting at bedside. No hx of wt loss in EMR, w/ mild weakness, and no edema noted. Pt does not meet minimum criteria for malnutrition at this time. LBM 3/2 per RN, receiving routine bowel care. Will continue to monitor. Recommendations: 1.Continuous TF per MD using Vital HP with 60 mL/hr goal to provide 1440 mL volume/day, 1440 kcal, 1204mL water, and 125 g protein. 2. Additional water flush per food and beverage service manager given on HD 3. Consider phos binder given HD per MD discretion 4. Prealbumin q Friday/ 5. Daily scaled weights 6. Routine bowel care 7. Advance to carb controlled diet as medically indicated following extubation per / Addendum: 07/23/21 at 1318 by Cesar Gasca - Liqu[employer] Supervisor RD Amended: Links added. Addendum: 07/23/21 at [address] ROSIO has reviewed and approves of above note.
--- NOTE | 2021-07-23 13:36 | NUR ---
0800-BP labile, from 90's over 40's to 20/100's. Adjusting pressors, vaso off. 0900- attempted to contact Dr Barlow for clarification of chemo dose and if pt received rasburicase. no one in office today. left message with answering service. 1000- Dr Barlow returned call. Pt received VP16 (etoposide) and cisplat 150, she did not receive rasburicase, she was on allopurinol x 1 week. 1030- critical care rounds- reported newest abg results, lab results including trop, ca, po4, bun/creat, lack of receiving rasburicase, noc shift events, + sputum culture. plan is to check G6PD before giving dose of rasburicase, resume some home meds including alloopurinol, address nutrition, bowel regimen. stop HCO3 after HD and repeat CMP 2-3 hours after. 1100-Dr Shaw mario. no new orders. review labs tomorrow to charles
[2021-07-23] MEDS ORDERED: acetaminophen 325mg tablet OGT PRN (15:28)
[2021-07-23] MEDS ORDERED: DEXTROSE 15 GM of carb/4 tabs (each vial/BOTTLE has 4 tablets) OGT PRN ×2 (15:29)
[2021-07-23] MEDS ORDERED: magnesium hydroxide 30ml (MOM) UD suspension OGT PRN (15:30)
[2021-07-23] MEDS ORDERED: potassium Cl 20 mEq SR tablet OGT PRN ×2 (15:30)
[2021-07-23 15:54] LABS: CREATINE KINASE 444 U/L (26-192); PREALBUMIN 14.9 MG/DL (19-36)
[2021-07-23 17:42] LABS: ALANINE AMINOTRANSFERASE 37 U/L (12-78); ALBUMIN 2.3 G/DL (3.4-5.0); ALBUMIN/GLOBULIN RATIO 0.8 (1.1-1.5); ALKALINE PHOSPHATASE 82 IU/L (46-116); ANION GAP 13 (8-16); ASPARTATE AMINO TRANSFERASE 58 U/L (10-37); BILIRUBIN,TOTAL 0.3 MG/DL (0.1-1.0); BLOOD UREA NITROGEN 32 MG/DL (7-18); BUN/CREATININE RATIO 11.9 (6.6-38.0); CALCIUM 7.5 MG/DL (8.5-10.1); CHLORIDE 102 MMOL/L (99-107); CREATININE 2.68 MG/DL (0.40-0.90); GLUCOSE 132 MG/DL (70-104); POTASSIUM 3.4 MMOL/L (3.5-5.1); SODIUM 139 MMOL/L (135-145); TOTAL CARBON DIOXIDE 23.8 MMOL/L (24-32); TOTAL PROTEIN 5.1 G/DL (6.4-8.2); eGFR 18 ML/MIN
[2021-07-23] MEDS: polyethylene glycol 3350 17gm powd pack OGT SCH (17:48)
[2021-07-23] MEDS: sennosides/docusate sodium tablet OGT SCH (17:48)
--- NOTE | 2021-07-23 18:30 | NUR ---
Patient in room CICU 2010. I have received report from Keeley BALLESTEROS and had the opportunity to ask questions and assume patient care.
[2021-07-23] MEDS: budesonide 0.5mg/2ml UD nebule IH SCH ×2 (19:12→21:00)
[2021-07-23] MEDS: docusate sodium 100mg/10ml UD cup OGT SCH (19:34)
[2021-07-23] MEDS: cefepime inj. 0.5 GM in normal saline 100ml IV soln 100 ML IV SCH (19:34)
[2021-07-24] VITALS (34 sets, daily range): BP systolic 94–140; BP diastolic 51–70
[2021-07-24] MEDS: insulin regular, human U-100 3ml vial - multi-dose SQ SCH ×4 (02:08→21:17)
[2021-07-24 02:43] LABS: BASOPHILS % (AUTO) 0 % (0-1); EOSINOPHILS % (AUTO) 0.2 % (0-6); HEMATOCRIT 28.1 % (35.0-45.0); HEMOGLOBIN 9.6 g/dl (12.0-16.0); LYMPHOCYTES # (AUTO) 0.3 X10'3 (1.1-4.8); LYMPHOCYTES % (AUTO) 6.6 % (21-51); MEAN CORPUSCULAR HEMOGLOBIN 29.7 PG (27.0-31.0); MEAN CORPUSCULAR HGB CONC 34.2 g/dL (33.0-36.5); MEAN CORPUSCULAR VOLUME 87.1 FL (78-98); MEAN PLATELET VOLUME 7.4 FL (7.4-10.4); MONOCYTES # (AUTO) 0.1 X10'3 (0-0.9); MONOCYTES % (AUTO) 1.3 % (2-12); NEUTROPHILS # (AUTO) 4.5 X10'3 (1.8-7.7); NEUTROPHILS % (AUTO) 91.9 % (42-75); PLATELET COUNT 123 X10'3 (140-440); RED BLOOD COUNT 3.22 X10'6 (4.20-5.60); RED CELL DISTRIBUTION WIDTH 13.6 % (11.5-14.5); WHITE BLOOD COUNT 4.9 X10'3 (4.5-11.0)
[2021-07-24 02:58] LABS: ALBUMIN 2.1 G/DL (3.4-5.0); ANION GAP 15 (8-16); BLOOD UREA NITROGEN 43 MG/DL (7-18); BUN/CREATININE RATIO 12.4 (6.6-38.0); CALCIUM 7.6 MG/DL (8.5-10.1); CHLORIDE 103 MMOL/L (99-107); CREATININE 3.48 MG/DL (0.40-0.90); GLUCOSE 251 MG/DL (70-104); MAGNESIUM 1.7 MG/DL (1.5-2.4); PHOSPHORUS 3.1 MG/DL (2.3-4.5); POTASSIUM 4.1 MMOL/L (3.5-5.1); SODIUM 139 MMOL/L (135-145); VANCOMYCIN,RANDOM 18.5 UG/ML; eGFR 13 ML/MIN
[2021-07-24] MEDS: VANCOMYCIN LEVEL IV SCH (03:00)
[2021-07-24 03:35] LABS: ABG BASE EXCESS -3.1 mmol/L (-2.0-2.0); ABG HCO3 20.6 mmol/L (22.0-26.0); ABG OXYGEN SATURATION 96.8 % (94-97); ABG PCO2 (T) 32.6 mmHg (32.0-45.0); ABG PO2 (T) 91.3 mmHg (75.0-100.0); FCOHb 0.3 % (0.0-3.9); FMetHb 0.3 % (0.0-1.5); FO2Hb 96.2 % (94-97); PATIENT TEMPERATURE 37.4; PEEP 5 cm H2O; RESPIRATORY RATE 14 b/min; TIDAL VOLUME 400 mL; TOTAL HEMOGLOBIN 10.1 G/dl (12.0-16.0)
[2021-07-24 04:02] LABS: PLATELET ESTIMATE DECREASED; TOTAL CELLS COUNTED 100; TOXIC GRANULATION 1+
[2021-07-24 04:03] LABS: SMUDGE CELLS FEW
[2021-07-24] MEDS ORDERED: calcium chloride 100 MG/1 ML inj IV ONE ×2 (04:55)
--- NOTE | 2021-07-24 06:15 | NUR ---
Patient in room CICU 2010. I have received report from Emiliano BALLESTEROS and had the opportunity to ask questions and assume patient care.
[2021-07-24] MEDS: budesonide 0.5mg/2ml UD nebule IH SCH ×2 (07:22→19:24)
[2021-07-24] MEDS: K and/or MAG REPLACEMENT MC SCH (08:00)
[2021-07-24] MEDS: pantoprazole 40MG/NS 100ML BAG 100 ML IV SCH (08:09)
[2021-07-24] MEDS: docusate sodium 100mg/10ml UD cup OGT SCH ×2 (08:10→19:23)
[2021-07-24] MEDS: enoxaparin 30mg/0.3ml syringe SUBCUT SCH (08:10)
[2021-07-24] MEDS: OLANZapine 2.5MG tablet OGT SCH (08:11)
[2021-07-24] MEDS: atorvastatin 20mg tablet OGT SCH (08:11)
[2021-07-24] MEDS: levoTHYROXINE 25mcg tablet OGT SCH (08:11)
[2021-07-24] MEDS: dexmedetomidine/D5W 100mL 100 ML IV SCH ×2 (08:46→20:08)
[2021-07-24 11:08] LABS: HBSAG SCREEN Negative (Negative)
[2021-07-24] MEDS ORDERED: amiodarone/D5 360MG/200ML BAG 200 ML IV SCH (11:45)
[2021-07-24] MEDS: amiodarone/D5 360MG/200ML BAG 200 ML IV SCH ×2 (12:30→17:37)
[2021-07-24] MEDS ORDERED: bisacodyl 10mg suppository rectal RC PRN (14:40)
--- NOTE | 2021-07-24 15:30 | NUR ---
Pt went into afib with HR 110s-120s at 1115. Spoke with Dr. Huston and he ordered for pt to start on Amio drip 1mg, without loading dose. Pt converted back to SR at 1530.
--- NOTE | 2021-07-24 18:17 | NUR ---
Problems reprioritized. Patient report given, questions answered & plan of care reviewed with Shahid BALLESTEROS.
[2021-07-24] MEDS: polyethylene glycol 3350 17gm powd pack OGT SCH (19:25)
[2021-07-24] MEDS: sennosides/docusate sodium tablet OGT SCH (19:25)
[2021-07-24] MEDS: cefepime inj. 0.5 GM in normal saline 100ml IV soln 100 ML IV SCH (21:11)
[2021-07-24] MEDS: insulin glargine (Lantus) pen - multi-dose SQ SCH (21:15)
[2021-07-25] VITALS (35 sets, daily range): BP systolic 105–164; BP diastolic 53–73
[2021-07-25] MEDS: NORepinephrine 32 MG in Normal Saline 250ml IV soln IV SCH (00:10)
[2021-07-25] MEDS: amiodarone/D5 360MG/200ML BAG 200 ML IV SCH ×4 (00:55→23:01)
[2021-07-25 02:33] LABS: BASOPHILS % (AUTO) 0.1 % (0-1); EOSINOPHILS % (AUTO) 1.3 % (0-6); HEMATOCRIT 26.3 % (35.0-45.0); HEMOGLOBIN 8.9 g/dl (12.0-16.0); LYMPHOCYTES # (AUTO) 0.3 X10'3 (1.1-4.8); MEAN CORPUSCULAR HEMOGLOBIN 29.5 PG (27.0-31.0); MEAN CORPUSCULAR HGB CONC 33.8 g/dL (33.0-36.5); MEAN CORPUSCULAR VOLUME 87.3 FL (78-98); MEAN PLATELET VOLUME 7.6 FL (7.4-10.4); MONOCYTES % (AUTO) 1.4 % (2-12); NEUTROPHILS # (AUTO) 2.8 X10'3 (1.8-7.7); NEUTROPHILS % (AUTO) 88.2 % (42-75); PLATELET COUNT 75 X10'3 (140-440); RED BLOOD COUNT 3.01 X10'6 (4.20-5.60); RED CELL DISTRIBUTION WIDTH 13.3 % (11.5-14.5); WHITE BLOOD COUNT 3.2 X10'3 (4.5-11.0)
[2021-07-25] MEDS: insulin regular, human U-100 3ml vial - multi-dose SQ SCH ×3 (02:34→22:28)
[2021-07-25] MEDS: VANCOMYCIN LEVEL IV SCH (02:54)
[2021-07-25 02:55] LABS: ALBUMIN 1.8 G/DL (3.4-5.0); ANION GAP 13 (8-16); BLOOD UREA NITROGEN 69 MG/DL (7-18); BUN/CREATININE RATIO 14.1 (6.6-38.0); CALCIUM 8.4 MG/DL (8.5-10.1); CHLORIDE 104 MMOL/L (99-107); GLUCOSE 178 MG/DL (70-104); MAGNESIUM 1.7 MG/DL (1.5-2.4); SODIUM 138 MMOL/L (135-145); TOTAL CARBON DIOXIDE 20.9 MMOL/L (24-32); VANCOMYCIN,RANDOM 16.7 UG/ML; eGFR 9 ML/MIN
[2021-07-25] MEDS: potassium Cl 20mEq/100mL bag 100 ML IV PRN ×4 (03:11→06:33)
[2021-07-25 03:26] LABS: ABG BASE EXCESS -3.4 mmol/L (-2.0-2.0); ABG OXYGEN SATURATION 97.1 % (94-97); ABG PCO2 (T) 30.2 mmHg (32.0-45.0); ABG PO2 (T) 97.2 mmHg (75.0-100.0); FCOHb 0.2 % (0.0-3.9); FMetHb 0.1 % (0.0-1.5); FO2Hb 96.8 % (94-97); PATIENT TEMPERATURE 37.2; PEEP 5 cm H2O; RESPIRATORY RATE 14 b/min; TIDAL VOLUME 400 mL; TOTAL HEMOGLOBIN 9.7 G/dl (12.0-16.0)
[2021-07-25] MEDS: budesonide 0.5mg/2ml UD nebule IH SCH ×2 (07:10→19:37)
[2021-07-25] MEDS: pantoprazole 40MG/NS 100ML BAG 100 ML IV SCH (07:31)
[2021-07-25] MEDS: enoxaparin 30mg/0.3ml syringe SUBCUT SCH (07:32)
[2021-07-25] MEDS: OLANZapine 2.5MG tablet OGT SCH (07:32)
[2021-07-25] MEDS: levoTHYROXINE 25mcg tablet OGT SCH (07:32)
[2021-07-25] MEDS: atorvastatin 20mg tablet OGT SCH (07:32)
[2021-07-25] MEDS: docusate sodium 100mg/10ml UD cup OGT SCH ×2 (07:32→20:58)
[2021-07-25] MEDS: K and/or MAG REPLACEMENT MC SCH (07:33)
[2021-07-25] MEDS ORDERED: heparin 1,000unit/ml 10ml vial 10 ML IV ONE (08:10)
[2021-07-25] MEDS ORDERED: heparin 1,000 units/ml 10ml inj IV ONE (08:10)
[2021-07-25] MEDS: dexmedetomidine/D5W 100mL 100 ML IV SCH (08:10)
[2021-07-25] MEDS ORDERED: albumin (human) 25% 100ml IV 100 ML IV PRN (08:10)
[2021-07-25] MEDS ORDERED: heparin 1,000 units/ml 10ml inj HE ONE ×2 (08:15)
[2021-07-25] MEDS ORDERED: mineral oil/petrolatum ophthal oint EACHEYE PRN (12:20)
[2021-07-25] MEDS: zinc sulfate 220mg capsule PO SCH (12:25)
[2021-07-25] MEDS: apixaban 5mg tablet PO SCH (20:58)
[2021-07-25] MEDS: cefepime inj. 0.5 GM in normal saline 100ml IV soln 100 ML IV SCH (20:58)
[2021-07-25] MEDS: polyethylene glycol 3350 17gm powd pack OGT SCH (20:58)
[2021-07-25] MEDS: insulin glargine (Lantus) pen - multi-dose SQ SCH (21:00)
[2021-07-26] VITALS (36 sets, daily range): BP systolic 92–208; BP diastolic 53–90
[2021-07-26] MEDS: amiodarone/D5 360MG/200ML BAG 200 ML IV SCH ×4 (00:21→19:39)
[2021-07-26] MEDS: insulin regular, human U-100 3ml vial - multi-dose SQ SCH ×4 (03:02→21:34)
[2021-07-26 03:18] LABS: EOSINOPHILS # (AUTO) 0.1 X10'3 (0-0.9); LYMPHOCYTES # (AUTO) 0.3 X10'3 (1.1-4.8); MONOCYTES # (AUTO) 0.1 X10'3 (0-0.9)
[2021-07-26 03:20] LABS: BASOPHILS % (AUTO) 0.3 % (0-1); EOSINOPHILS % (AUTO) 6.3 % (0-6); HEMATOCRIT 25.9 % (35.0-45.0); HEMOGLOBIN 8.8 g/dl (12.0-16.0); LYMPHOCYTES % (AUTO) 13.8 % (21-51); MEAN CORPUSCULAR HEMOGLOBIN 29.3 PG (27.0-31.0); MEAN CORPUSCULAR HGB CONC 33.8 g/dL (33.0-36.5); MEAN CORPUSCULAR VOLUME 86.8 FL (78-98); MEAN PLATELET VOLUME 7.9 FL (7.4-10.4); MONOCYTES % (AUTO) 3.4 % (2-12); NEUTROPHILS # (AUTO) 1.6 X10'3 (1.8-7.7); NEUTROPHILS % (AUTO) 76.2 % (42-75); PLATELET COUNT 55 X10'3 (140-440); RED BLOOD COUNT 2.98 X10'6 (4.20-5.60); RED CELL DISTRIBUTION WIDTH 13.3 % (11.5-14.5)
[2021-07-26 03:28] LABS: ABG BASE EXCESS -5.1 mmol/L (-2.0-2.0); ABG HCO3 18.3 mmol/L (22.0-26.0); ABG PCO2 (T) 28.1 mmHg (32.0-45.0); ABG PO2 (T) 117.6 mmHg (75.0-100.0); FCOHb 0.3 % (0.0-3.9); FO2Hb 97.7 % (94-97); PATIENT TEMPERATURE 36.8; PEEP 5 cm H2O; RESPIRATORY RATE 14 b/min; TOTAL HEMOGLOBIN 9.6 G/dl (12.0-16.0)
[2021-07-26 03:38] LABS: ALBUMIN 1.8 G/DL (3.4-5.0); ANION GAP 15 (8-16); BLOOD UREA NITROGEN 97 MG/DL (7-18); BUN/CREATININE RATIO 16.2 (6.6-38.0); CALCIUM 8.4 MG/DL (8.5-10.1); CHLORIDE 105 MMOL/L (99-107); GLUCOSE 153 MG/DL (70-104); MAGNESIUM 1.7 MG/DL (1.5-2.4); PHOSPHORUS 2.4 MG/DL (2.3-4.5); POTASSIUM 3.3 MMOL/L (3.5-5.1); PREALBUMIN 15.5 MG/DL (19-36); SODIUM 139 MMOL/L (135-145); TOTAL CARBON DIOXIDE 19.5 MMOL/L (24-32); eGFR 7 ML/MIN
[2021-07-26 04:58] LABS: PLATELET ESTIMATE DECREASED; TOTAL CELLS COUNTED 100
[2021-07-26 04:59] LABS: TOXIC GRANULATION 1+
[2021-07-26 05:00] LABS: APTT 32 SECONDS (22-32); SMUDGE CELLS FEW
[2021-07-26] MEDS ORDERED: albumin (human) 25% 100ml IV 100 ML IV PRN (06:10)
[2021-07-26] MEDS ORDERED: EPOETIN ALFA-EPBX 20,000 UNIT/ML 1 ML MDV IV ONE (06:10)
[2021-07-26] MEDS: atorvastatin 20mg tablet OGT SCH (07:53)
[2021-07-26] MEDS: OLANZapine 2.5MG tablet OGT SCH (07:53)
[2021-07-26] MEDS: zinc sulfate 220mg capsule PO SCH (07:53)
[2021-07-26] MEDS: levoTHYROXINE 25mcg tablet OGT SCH (07:53)
[2021-07-26] MEDS: pantoprazole 40MG/NS 100ML BAG 100 ML IV SCH (07:53)
[2021-07-26] MEDS: docusate sodium 100mg/10ml UD cup OGT SCH (08:00)
[2021-07-26] MEDS: apixaban 5mg tablet PO SCH (08:00)
[2021-07-26] MEDS: budesonide 0.5mg/2ml UD nebule IH SCH ×2 (08:17→19:03)
[2021-07-26] MEDS ORDERED: heparin 1,000 units/ml 10ml inj HE ONE ×2 (08:20)
[2021-07-26] MEDS ORDERED: hydrALAZINE 20mg/ml inj. IV ONE (08:24)
[2021-07-26] MEDS ORDERED: hydrALAZINE 20mg/ml inj. IV PRN (08:25)
[2021-07-26] MEDS ORDERED: fentaNYL/PF 50MCG/1 ML 2ML syringe ONE (08:25)
[2021-07-26] MEDS: fentaNYL/PF 50MCG/1 ML 2ML syringe IV PRN ×2 (08:28→22:59)
--- NOTE | 2021-07-26 09:00 | NUR ---
Potassium 3.3; hold replacement per Dr. Squires. Patient to receive 4K dialysis treatment
[2021-07-26] MEDS ORDERED: MESSAGE TO NURSING PO ONE (10:10)
[2021-07-26] MEDS ORDERED: argatroban in NS 50mg/50ml 50 ML IV SCH (10:45)
[2021-07-26 10:57] LABS: ALANINE AMINOTRANSFERASE 24 U/L (12-78); ALBUMIN/GLOBULIN RATIO 0.6 (1.1-1.5); ALKALINE PHOSPHATASE 73 IU/L (46-116); ASPARTATE AMINO TRANSFERASE 22 U/L (10-37); BILIRUBIN,DIRECT 0.1 MG/DL (0-0.3); BILIRUBIN,TOTAL 0.2 MG/DL (0.1-1.0); TOTAL PROTEIN 4.9 G/DL (6.4-8.2)
[2021-07-26] MEDS: dexmedetomidine/D5W 100mL 100 ML IV SCH (11:13)
--- NOTE | 2021-07-26 11:56 | NUR ---
Reassessment: Pt is still mechanically ventilated and tolerating TF at goal, GRV WNL per EMR. Pt is having HD today 07/26 w/ goal of removing 3L of fluid per MD at [facility]. Pt is currently experiencing diarrhea w/ rectal tube in place, documented w/ 1100ml stool output yesterday 07/25 w/ 200ml output today per EMR. Bowel care has been discontinued today per MD at [facility]. Will continue to monitor for TF tolerance. Recommendations: 1.Continuous TF per MD using Vital HP with 60 mL/hr goal to provide 1440 mL volume/day, 1440 kcal, 1204mL water, and 125 g protein. 2. Additional water flush per hardware engineer given on HD 3. Monitor need for phos binder given HD per MD discretion 4. Prealbumin q Friday/ 5. Daily scaled weights 6. Routine bowel care 7. Advance to carb controlled diet as medically indicated following extubation per / Addendum: 07/26/21 at [address] Amended: Links added. Addendum: 07/26/21 at [address] I have reviewed and agree with note by sourcing intern. ROSIO Oliveira
[2021-07-26] MEDS: argatroban in NS 50mg/50ml 50 ML IV SCH ×3 (12:14→21:41)
[2021-07-26 15:05] LABS: APTT 69 SECONDS (22-32)
--- NOTE | 2021-07-26 17:05 | NUR ---
Patient continues to go in and out of A.fib; Dr. Huston aware. Continue Amiodarone drip.
--- NOTE | 2021-07-26 18:12 | NUR ---
Problems reprioritized. Patient report given, questions answered & plan of care reviewed with Shahid BALLESTEROS.
[2021-07-26] MEDS: cefepime inj. 0.5 GM in normal saline 100ml IV soln 100 ML IV SCH (19:38)
[2021-07-26 20:51] LABS: APTT 76 SECONDS (22-32)
[2021-07-26] MEDS: insulin glargine (Lantus) pen - multi-dose SQ SCH (21:32)
[2021-07-26] MEDS ORDERED: NORepinephrine 8mg/ 250ml NS 250 ML IV ONE (23:48)
[2021-07-27] VITALS (35 sets, daily range): BP systolic 76–178; BP diastolic 42–81
[2021-07-27] MEDS: dexmedetomidine/D5W 100mL 100 ML IV SCH ×3 (00:04→16:23)
[2021-07-27] MEDS: amiodarone/D5 360MG/200ML BAG 200 ML IV SCH ×5 (00:05→23:38)
[2021-07-27 02:45] LABS: MEAN CORPUSCULAR VOLUME 85.5 FL (78-98)
[2021-07-27 02:51] LABS: HEMATOCRIT 26.8 % (35.0-45.0); HEMOGLOBIN 9.2 g/dl (12.0-16.0); MEAN CORPUSCULAR HEMOGLOBIN 29.4 PG (27.0-31.0); MEAN CORPUSCULAR HGB CONC 34.4 g/dL (33.0-36.5); MEAN PLATELET VOLUME 8.1 FL (7.4-10.4); RED BLOOD COUNT 3.14 X10'6 (4.20-5.60); RED CELL DISTRIBUTION WIDTH 13.5 % (11.5-14.5)
[2021-07-27 02:59] LABS: ALBUMIN 2.3 G/DL (3.4-5.0); ANION GAP 14 (8-16); BLOOD UREA NITROGEN 72 MG/DL (7-18); BUN/CREATININE RATIO 15.5 (6.6-38.0); CALCIUM 8.6 MG/DL (8.5-10.1); CHLORIDE 102 MMOL/L (99-107); CREATININE 4.64 MG/DL (0.40-0.90); GLUCOSE 117 MG/DL (70-104); MAGNESIUM 1.7 MG/DL (1.5-2.4); PHOSPHORUS 2.8 MG/DL (2.3-4.5); POTASSIUM 3.3 MMOL/L (3.5-5.1); SODIUM 137 MMOL/L (135-145); TOTAL CARBON DIOXIDE 21.1 MMOL/L (24-32); eGFR 10 ML/MIN
[2021-07-27 03:29] LABS: ABG BASE EXCESS -1.8 mmol/L (-2.0-2.0); ABG HCO3 20.9 mmol/L (22.0-26.0); ABG OXYGEN SATURATION 96.7 % (94-97); ABG PCO2 (T) 29.5 mmHg (32.0-45.0); ABG PO2 (T) 96.6 mmHg (75.0-100.0); FCOHb 0.2 % (0.0-3.9); FMetHb 0.3 % (0.0-1.5); FO2Hb 96.2 % (94-97); PEEP 5 cm H2O; RESPIRATORY RATE 14 b/min; TIDAL VOLUME 400 mL; TOTAL HEMOGLOBIN 9.9 G/dl (12.0-16.0)
[2021-07-27 03:57] LABS: PLATELET COUNT 41 X10'3 (140-440); WHITE BLOOD COUNT 0.5 X10'3 (4.5-11.0)
[2021-07-27 04:36] LABS: APTT 52 SECONDS (22-32)
[2021-07-27] MEDS: argatroban in NS 50mg/50ml 50 ML IV SCH ×4 (05:54→22:46)
[2021-07-27] MEDS: budesonide 0.5mg/2ml UD nebule IH SCH ×2 (07:06→19:15)
[2021-07-27 07:50] LABS: PLATELET ESTIMATE DECREASED; TOTAL CELLS COUNTED 50
[2021-07-27] MEDS: pantoprazole 40MG/NS 100ML BAG 100 ML IV SCH (08:06)
[2021-07-27] MEDS: atorvastatin 20mg tablet OGT SCH (08:07)
[2021-07-27] MEDS: levoTHYROXINE 25mcg tablet OGT SCH (08:07)
[2021-07-27] MEDS: OLANZapine 2.5MG tablet OGT SCH (08:07)
[2021-07-27] MEDS: TBO-filgrastim 300 MCG/0.5 ML inj. SQ SCH (08:07)
[2021-07-27] MEDS: zinc sulfate 220mg capsule PO SCH (08:07)
[2021-07-27] MEDS: fentaNYL/PF 50MCG/1 ML 2ML syringe IV PRN (08:08)
[2021-07-27] MEDS: insulin regular, human U-100 3ml vial - multi-dose SQ SCH ×2 (08:27→14:24)
[2021-07-27 09:05] LABS: ALANINE AMINOTRANSFERASE 22 U/L (12-78); ALBUMIN/GLOBULIN RATIO 0.6 (1.1-1.5); ALKALINE PHOSPHATASE 69 IU/L (46-116); ASPARTATE AMINO TRANSFERASE 19 U/L (10-37); BILIRUBIN,DIRECT 0.1 MG/DL (0-0.3); BILIRUBIN,TOTAL 0.3 MG/DL (0.1-1.0); TOTAL PROTEIN 5.9 G/DL (6.4-8.2)
[2021-07-27] MEDS: FENTANYL-0.9 % NACL/PF 100 ML IV PRN (12:43)
[2021-07-27 14:33] LABS: APTT 80 SECONDS (22-32)
[2021-07-27] MEDS ORDERED: VANCOMYCIN 1GM/200ML IVPB 200 ML IV PRN ×2 (17:50→17:54)
--- NOTE | 2021-07-27 18:24 | NUR ---
Fentanyl started at low dose of 10 mcg/min and Precedex decreased d/t patient's BP labile from SBP in 70's when given IV push Fentanyl to SBP in 200's when agitated. Gags on tube but does not move extremities or follow commands. Able to wean off Levo after Fentanyl started. Temp increased to 38.4. Sputum changed to yellow in color. Dr. Huston notified. Blood & sputum cultures sent. Remains anuric. Decrease in diarrhea.
[2021-07-27] MEDS: cefepime inj. 0.5 GM in normal saline 100ml IV soln 100 ML IV SCH (20:26)
[2021-07-27] MEDS: insulin glargine (Lantus) pen - multi-dose SQ SCH (20:31)
[2021-07-27 22:36] LABS: APTT 96 SECONDS (22-32)
[2021-07-28] VITALS (35 sets, daily range): BP systolic 94–161; BP diastolic 47–67
[2021-07-28 01:31] LABS: APTT 94 SECONDS (22-32)
[2021-07-28] MEDS: argatroban in NS 50mg/50ml 50 ML IV SCH ×2 (01:33→11:44)
[2021-07-28 02:33] LABS: HEMOGLOBIN 8.4 g/dl (12.0-16.0); LYMPHOCYTES # (AUTO) 0.2 X10'3 (1.1-4.8); MEAN CORPUSCULAR HEMOGLOBIN 29.7 PG (27.0-31.0); MONOCYTES # (AUTO) 0.2 X10'3 (0-0.9); NEUTROPHILS # (AUTO) 0.2 X10'3 (1.8-7.7); RED BLOOD COUNT 2.84 X10'6 (4.20-5.60)
[2021-07-28 02:36] LABS: BASOPHILS % (AUTO) 1.6 % (0-1); EOSINOPHILS % (AUTO) 5.6 % (0-6); HEMATOCRIT 24.3 % (35.0-45.0); LYMPHOCYTES % (AUTO) 31.6 % (21-51); MEAN CORPUSCULAR HGB CONC 34.7 g/dL (33.0-36.5); MEAN CORPUSCULAR VOLUME 85.6 FL (78-98); MONOCYTES % (AUTO) 30.1 % (2-12); NEUTROPHILS % (AUTO) 31.1 % (42-75); RED CELL DISTRIBUTION WIDTH 13.3 % (11.5-14.5)
[2021-07-28] MEDS: insulin regular, human U-100 3ml vial - multi-dose SQ SCH ×4 (02:39→20:58)
[2021-07-28 02:51] LABS: WHITE BLOOD COUNT 0.6 X10'3 (4.5-11.0)
[2021-07-28 02:52] LABS: PLATELET COUNT 42 X10'3 (140-440)
[2021-07-28 02:55] LABS: ALBUMIN 1.9 G/DL (3.4-5.0); ANION GAP 13 (8-16); BLOOD UREA NITROGEN 94 MG/DL (7-18); BUN/CREATININE RATIO 16.4 (6.6-38.0); CALCIUM 8.3 MG/DL (8.5-10.1); CHLORIDE 98 MMOL/L (99-107); CREATININE 5.73 MG/DL (0.40-0.90); GLUCOSE 157 MG/DL (70-104); MAGNESIUM 1.5 MG/DL (1.5-2.4); PHOSPHORUS 3.6 MG/DL (2.3-4.5); SODIUM 130 MMOL/L (135-145); TOTAL CARBON DIOXIDE 19.3 MMOL/L (24-32); eGFR 7 ML/MIN
[2021-07-28 03:14] LABS: ABG BASE EXCESS -4.4 mmol/L (-2.0-2.0); ABG HCO3 19.1 mmol/L (22.0-26.0); ABG OXYGEN SATURATION 97.2 % (94-97); ABG PO2 (T) 104.1 mmHg (75.0-100.0); FCOHb 0.2 % (0.0-3.9); FMetHb 0.2 % (0.0-1.5); FO2Hb 96.8 % (94-97); PATIENT TEMPERATURE 37.6; PEEP 5 cm H2O; RESPIRATORY RATE 14 b/min; TIDAL VOLUME 400 mL; TOTAL HEMOGLOBIN 9.3 G/dl (12.0-16.0)
--- NOTE | 2021-07-28 03:46 | NUR ---
61 yo female, admitted 07/22/2021, day 6 of hospitalization, Full code, allergies to Sulfa, Hydromorphone, Codeine. Isolation is Neutropenic Precautions. Reverse isolation. Bilateral soft wrist restraints, Orders and documentation in accordance with facility policies and procedures. Present medical HX of small cell lung CA, recently received chemo and radiation therapy. Pt became unresponsive in AM 07/21/2021 after taking her prescribed Baclofen and Grafton, per . stated, she woke up normal this morning but complained of her back pain. After taking her above mentioned pain meds she went to lay down and was subsequently unarousable by who ended up calling EMS. She was hypoxic in the ED and promptly intubated. In light of the report and normal pupillary size Narcan was deemed not necessary. She received 1L of NS due to hypotension and started on Levophed. In light of her recent chemo/radiation and underlying cancer tumor lysis syndrome is a high consideration. Currently, Pt is afebrile, was febrile on day shift and PARR cultures. Sedated on Fentanyl at 25 mcgs and Precedex at .2 mcgs. Pt will grimace and move her head to voice. HR 70-80 SR with an episode of FLUTTER around midnight then converted back to SR a while later. Pt remains on Amiodarone at .5 mg/min. BP 131/56 per left groin A-Line. BP supported with Levophed .01mcgs/kg/min. IVF infusing via RSC TLC. Line dressing changed due to drainage. Pt is on Argatroban, Frequent PTT and titration. Current rate is .5 mcgs/kg/min. Weak pulses, +2edema. Intubated with 8.0 ETT 23 cm, AC/PRVC Rate 14, TV 515+/-, FIO2 30%, PEEP 5. Suction PRN for large amount thick christensen secretion. Breath sounds, Coarse, diminished at bases. PO 96%. Morning ABG WNL. Hypoactive bowel sounds, soft, rounds obese abdomen. Tube feeding Vital AF infusing at 60 ml's hr. Protonix for GI prophylaxis, Glucose checks Q 6 hours with Regular insulin coverage and Lantus at HS. Lantus and Regular Insulin held at 2000 due to glucose 80 and 86. Coverage resumed at 0200 for glucose of 163. Pt is anuric, dialysis EOD, Roney cath on left groin. Dressing changed along with A-Line dressing. Skin intact, some mild groin and buttocks excoriation noted. up dated, Pt remains safe, continue to monitor. All abnormal labs adjusted according to protocol and or MD aware.
[2021-07-28 05:04] LABS: TOTAL CELLS COUNTED 100
[2021-07-28 05:05] LABS: ANISOCYTOSIS 1+; PLATELET ESTIMATE DECREASED
[2021-07-28] MEDS: NORepinephrine 8mg/ 250ml NS 250 ML IV SCH ×2 (05:32→19:29)
[2021-07-28] MEDS: dexmedetomidine/D5W 100mL 100 ML IV SCH ×2 (05:46→16:22)
--- NOTE | 2021-07-28 06:30 | NUR ---
Patient in room CICU 2010. I have received report from Lester BALLESTEROS and had the opportunity to ask questions and assume patient care.
[2021-07-28] MEDS: amiodarone/D5 360MG/200ML BAG 200 ML IV SCH ×4 (06:57→23:45)
[2021-07-28] MEDS: levoTHYROXINE 25mcg tablet OGT SCH (07:37)
[2021-07-28] MEDS: TBO-filgrastim 300 MCG/0.5 ML inj. SQ SCH (07:37)
[2021-07-28] MEDS: pantoprazole 40MG/NS 100ML BAG 100 ML IV SCH (07:37)
[2021-07-28] MEDS: zinc sulfate 220mg capsule PO SCH (07:37)
[2021-07-28] MEDS: OLANZapine 2.5MG tablet OGT SCH (07:38)
[2021-07-28] MEDS: atorvastatin 20mg tablet OGT SCH (07:38)
[2021-07-28] MEDS ORDERED: albumin (human) 25% 100ml IV 100 ML IV PRN (08:00)
[2021-07-28] MEDS ORDERED: EPOETIN ALFA-EPBX 20,000 UNIT/ML 1 ML MDV IV ONE (08:00)
[2021-07-28] MEDS ORDERED: heparin 1,000 units/ml 10ml inj HE ONE ×2 (08:00)
[2021-07-28] MEDS: ipratropium/albuterol 3ml nebule NEB PRN ×2 (08:15→10:42)
[2021-07-28] MEDS: budesonide 0.5mg/2ml UD nebule IH SCH ×2 (08:15→19:12)
[2021-07-28 09:32] LABS: VANCOMYCIN,RANDOM 11.3 UG/ML
[2021-07-28] MEDS ORDERED: cefepime inj. 1 GM in normal saline 100ml IV soln 100 ML IV SCH (11:30)
[2021-07-28] MEDS ORDERED: VANCOMYCIN 1GM/200ML IVPB 200 ML IV ONE (13:00)
--- NOTE | 2021-07-28 13:17 | NUR ---
Reassessment: Pt remains intubated and tolerating TF at goal rate with GRV WNL. Pt s/p HD 07/26 with 2.3 L fluid removed per I&O. Per RN at critical care rounds pt to get HD today. LBM 07/27, documented with 300 mL stool output per I&O. Pt no longer receiving routine bowel care. No changes to nutrition intervention at this time. Will continue to follow. Recommendations: 1.Continuous TF per MD using Vital HP with 60 mL/hr goal to provide 1440 mL volume/day, 1440 kcal, 1204mL water, and 125 g protein. 2. Additional water flush per cooperative extension agent given pt on HD 3. Monitor need for phos binder given HD per MD discretion 4. Prealbumin q Friday/ 5. Daily scaled weights 6. Routine bowel care 7. Advance to carb controlled diet as medically indicated following extubation, will need BSS with ST Addendum: 07/28/21 at [address] Amended: Links added.
[2021-07-28] MEDS: FENTANYL-0.9 % NACL/PF 100 ML IV PRN (17:01)
--- NOTE | 2021-07-28 17:30 | NUR ---
Patient increasingly opening eyes spontaneously but still does not track or move extremities. When awake gags on tube. Continues on Fentanyl & Precedex for light sedation and tolerance of vent. Remained in SR throughout shift. Levophed at low dose. 3+ edema. Remains anuric. Dialysis in progress. Lungs coarse with occ wheezes. Secretions yellow. Dr. Mckinley consulted. Patient started on Vancomycin & Maxipime dose increased.
--- NOTE | 2021-07-28 18:15 | NUR ---
Problems reprioritized. Patient report given, questions answered & plan of care reviewed with Mac RN.
[2021-07-28] MEDS: apixaban 5mg tablet OGT SCH (20:30)
[2021-07-28] MEDS: insulin glargine (Lantus) pen - multi-dose SQ SCH (20:57)
[2021-07-29] VITALS (32 sets, daily range): BP systolic 93–139; BP diastolic 43–67
[2021-07-29 03:15] LABS: ABG BASE EXCESS -0.1 mmol/L (-2.0-2.0); ABG HCO3 22.8 mmol/L (22.0-26.0); ABG OXYGEN SATURATION 94.3 % (94-97); ABG PCO2 (T) 31.1 mmHg (32.0-45.0); FCOHb 0.3 % (0.0-3.9); FMetHb 0.2 % (0.0-1.5); FO2Hb 93.8 % (94-97); PATIENT TEMPERATURE 37.7; PEEP 5 cm H2O; RESPIRATORY RATE 18 b/min; TIDAL VOLUME 400 mL; TOTAL HEMOGLOBIN 8.4 G/dl (12.0-16.0)
[2021-07-29] MEDS: dexmedetomidine/D5W 100mL 100 ML IV SCH ×3 (03:18→16:34)
[2021-07-29] MEDS: insulin regular, human U-100 3ml vial - multi-dose SQ SCH ×3 (03:23→20:11)
[2021-07-29 04:02] LABS: BASOPHILS % (AUTO) 1.4 % (0-1); EOSINOPHILS % (AUTO) 2.7 % (0-6); HEMATOCRIT 22.3 % (35.0-45.0); HEMOGLOBIN 7.7 g/dl (12.0-16.0); LYMPHOCYTES # (AUTO) 0.1 X10'3 (1.1-4.8); LYMPHOCYTES % (AUTO) 18.7 % (21-51); MEAN CORPUSCULAR HEMOGLOBIN 29.4 PG (27.0-31.0); MEAN CORPUSCULAR HGB CONC 34.7 g/dL (33.0-36.5); MEAN CORPUSCULAR VOLUME 84.8 FL (78-98); MEAN PLATELET VOLUME 9.8 FL (7.4-10.4); MONOCYTES # (AUTO) 0.2 X10'3 (0-0.9); MONOCYTES % (AUTO) 24.6 % (2-12); NEUTROPHILS # (AUTO) 0.4 X10'3 (1.8-7.7); NEUTROPHILS % (AUTO) 52.6 % (42-75); PLATELET COUNT 51 X10'3 (140-440); RED BLOOD COUNT 2.63 X10'6 (4.20-5.60); RED CELL DISTRIBUTION WIDTH 13.4 % (11.5-14.5)
[2021-07-29 04:19] LABS: ALBUMIN 2.1 G/DL (3.4-5.0); ANION GAP 14 (8-16); BLOOD UREA NITROGEN 58 MG/DL (7-18); BUN/CREATININE RATIO 14.4 (6.6-38.0); CALCIUM 8.3 MG/DL (8.5-10.1); CHLORIDE 98 MMOL/L (99-107); CREATININE 4.02 MG/DL (0.40-0.90); GLUCOSE 224 MG/DL (70-104); MAGNESIUM 1.6 MG/DL (1.5-2.4); PHOSPHORUS 2.9 MG/DL (2.3-4.5); SODIUM 135 MMOL/L (135-145); eGFR 11 ML/MIN
[2021-07-29 04:21] LABS: WHITE BLOOD COUNT 0.7 X10'3 (4.5-11.0)
--- NOTE | 2021-07-29 04:30 | NUR ---
Tele rounds with Dr. Chapman. Labs and assessments reviewed. Possible head CT today.
[2021-07-29 05:24] LABS: ANISOCYTOSIS 1+; NUCLEATED RED BLOOD CELLS 2 /100WBC (0-0); PLATELET ESTIMATE DECREASED; TOTAL CELLS COUNTED 100
[2021-07-29 05:25] LABS: BURR CELLS 1+; POLYCHROMASIA FEW
--- NOTE | 2021-07-29 06:34 | NUR ---
Shift Summary: Pt has become progressively more responsive throughout shift. Opening eyes and turning head to voice. Still not moving extremities.
[2021-07-29] MEDS: amiodarone/D5 360MG/200ML BAG 200 ML IV SCH ×4 (07:13→23:33)
[2021-07-29] MEDS: cefepime 1GM in D5W 50mL 50 ML IV SCH (07:39)
[2021-07-29] MEDS: pantoprazole 40MG/NS 100ML BAG 100 ML IV SCH (07:39)
[2021-07-29] MEDS: zinc sulfate 220mg capsule PO SCH (07:41)
[2021-07-29] MEDS: levoTHYROXINE 25mcg tablet OGT SCH (07:41)
[2021-07-29] MEDS: atorvastatin 20mg tablet OGT SCH (07:41)
[2021-07-29] MEDS: OLANZapine 2.5MG tablet OGT SCH (07:41)
[2021-07-29] MEDS: budesonide 0.5mg/2ml UD nebule IH SCH ×2 (07:52→19:02)
[2021-07-29] MEDS: ipratropium/albuterol 3ml nebule NEB PRN (07:52)
[2021-07-29] MEDS ORDERED: TBO-filgrastim 300 MCG/0.5 ML inj. SQ SCH (08:00)
[2021-07-29] MEDS: apixaban 5mg tablet OGT SCH ×2 (08:00→20:02)
[2021-07-29] MEDS ORDERED: tPA-cathflo 2 MG/2 ml IV flush IVF ONE (09:05)
[2021-07-29] MEDS: NORepinephrine 8mg/ 250ml NS 250 ML IV SCH ×2 (09:50→16:34)
[2021-07-29] MEDS ORDERED: TBO-filgrastim 480 MCG/0.8ml syringe SQ SCH (13:56)
[2021-07-29] MEDS: FENTANYL-0.9 % NACL/PF 100 ML IV PRN (16:36)
--- NOTE | 2021-07-29 18:20 | NUR ---
Patient in room CICU 2010. I have received report from FAVIAN Weller and had the opportunity to ask questions and assume patient care.
--- NOTE | 2021-07-29 19:00 | NUR ---
Patient is awake, eyes open spontaneous and to verbal. Patient with facial grimace and wide opening of mouth as if screaming. ET tube in place on ventilator CPAP/ PS: 25% FiO2, PEEP 5, PS 10. Current respiratory rate 16. Tidal volumes 600's. Fentanyl off at change of shift. Neuro assessment completed and Fentanyl restarted for patient comfort. Patient non-verbal pain = severe with facial grimace, tearful. Patient weak to lower extremities: able to wiggle toes. Patient responds to verbal and will track with her eyes. Pupils are PERRL at 3mm. patient unable to move upper extremities to command or in response to painful stimuli. Edema present to upper extremities, arms elevated on pillows, restraints in place.
[2021-07-29] MEDS: insulin glargine (Lantus) pen - multi-dose SQ SCH (20:12)
[2021-07-30] VITALS (35 sets, daily range): BP systolic 54–150; BP diastolic 10–75
[2021-07-30] MEDS: VANCOMYCIN LEVEL IV SCH (02:12)
[2021-07-30] MEDS: dexmedetomidine/D5W 100mL 100 ML IV SCH ×4 (02:15→22:21)
[2021-07-30] MEDS: insulin regular, human U-100 3ml vial - multi-dose SQ SCH ×4 (02:19→23:26)
--- NOTE | 2021-07-30 02:33 | NUR ---
Patient continues to follow commands, moving lower extremities, no movement noted from upper extremities. Patient nods head appropriately. Patient is often with facial grimace and is tearful, Fentanyl bolus administered per protocol and policy. Patient with frequent coughing, endotracheal tube suction every hour with small to moderate amount of thick white sputum. Attempted to titrate off Levophed with out success, patient requires small amount of assistance to maintain blood pressure.
[2021-07-30 02:44] LABS: BASOPHILS % (AUTO) 0.4 % (0-1); EOSINOPHILS % (AUTO) 1.5 % (0-6); HEMATOCRIT 22.1 % (35.0-45.0); HEMOGLOBIN 7.6 g/dl (12.0-16.0); LYMPHOCYTES # (AUTO) 0.2 X10'3 (1.1-4.8); LYMPHOCYTES % (AUTO) 8.9 % (21-51); MEAN CORPUSCULAR HEMOGLOBIN 29.5 PG (27.0-31.0); MEAN CORPUSCULAR HGB CONC 34.6 g/dL (33.0-36.5); MEAN CORPUSCULAR VOLUME 85.3 FL (78-98); MONOCYTES # (AUTO) 0.3 X10'3 (0-0.9); MONOCYTES % (AUTO) 11.5 % (2-12); NEUTROPHILS % (AUTO) 77.7 % (42-75); PLATELET COUNT 89 X10'3 (140-440); RED BLOOD COUNT 2.59 X10'6 (4.20-5.60); RED CELL DISTRIBUTION WIDTH 13.9 % (11.5-14.5); WHITE BLOOD COUNT 2.6 X10'3 (4.5-11.0)
[2021-07-30 03:04] LABS: ALBUMIN 1.8 G/DL (3.4-5.0); ANION GAP 16 (8-16); BLOOD UREA NITROGEN 80 MG/DL (7-18); BUN/CREATININE RATIO 15.3 (6.6-38.0); CALCIUM 8.6 MG/DL (8.5-10.1); CHLORIDE 95 MMOL/L (99-107); CREATININE 5.24 MG/DL (0.40-0.90); GLUCOSE 156 MG/DL (70-104); MAGNESIUM 1.5 MG/DL (1.5-2.4); PHOSPHORUS 2.8 MG/DL (2.3-4.5); PREALBUMIN 12.6 MG/DL (19-36); SODIUM 132 MMOL/L (135-145); TOTAL CARBON DIOXIDE 21.4 MMOL/L (24-32); VANCOMYCIN,RANDOM 18.4 UG/ML; eGFR 8 ML/MIN
[2021-07-30 03:12] LABS: ABG BASE EXCESS -3.3 mmol/L (-2.0-2.0); ABG OXYGEN SATURATION 96.6 % (94-97); ABG PCO2 (T) 30.3 mmHg (32.0-45.0); ABG PO2 (T) 93.3 mmHg (75.0-100.0); FCOHb 0.3 % (0.0-3.9); FMetHb 0.3 % (0.0-1.5); PATIENT TEMPERATURE 37.7; PEEP 5 cm H2O; TOTAL HEMOGLOBIN 8.6 G/dl (12.0-16.0)
--- NOTE | 2021-07-30 05:01 | NUR ---
Rounds with Dr. Mercado, reviewed current labs, ABG and events of the night. MD to place order for head, neck and chest CT. Reviewed with MD that patient is not moving her upper extremities bilaterally. Made MD aware that patient did not have a cuff leak when RT adjusted ET tube.
[2021-07-30 05:20] LABS: ANISOCYTOSIS 1+; BURR CELLS 1+; PLATELET ESTIMATE DECREASED; POLYCHROMASIA FEW; TOTAL CELLS COUNTED 100
--- NOTE | 2021-07-30 05:54 | NUR ---
Central line dressing changed again. Skin is weeping serous fluid from puncture sites.
--- NOTE | 2021-07-30 06:05 | NUR ---
Problems reprioritized. Patient report given, questions answered & plan of care reviewed with FAVIAN Weller.
[2021-07-30] MEDS: zinc sulfate 220mg capsule PO SCH (07:26)
[2021-07-30] MEDS: pantoprazole 40MG/NS 100ML BAG 100 ML IV SCH (07:26)
[2021-07-30] MEDS: cefepime 1GM in D5W 50mL 50 ML IV SCH (07:26)
[2021-07-30] MEDS: OLANZapine 2.5MG tablet OGT SCH (07:26)
[2021-07-30] MEDS: atorvastatin 20mg tablet OGT SCH (07:26)
[2021-07-30] MEDS: apixaban 5mg tablet OGT SCH ×2 (07:27→22:19)
[2021-07-30] MEDS: levoTHYROXINE 25mcg tablet OGT SCH (07:27)
[2021-07-30] MEDS: amiodarone/D5 360MG/200ML BAG 200 ML IV SCH ×3 (07:28→19:58)
[2021-07-30] MEDS: ipratropium/albuterol 3ml nebule NEB PRN ×2 (07:36→19:24)
[2021-07-30] MEDS: budesonide 0.5mg/2ml UD nebule IH SCH (07:37)
[2021-07-30] MEDS: FENTANYL-0.9 % NACL/PF 100 ML IV PRN (10:08)
[2021-07-30] MEDS ORDERED: albumin (human) 25% 100ml IV 100 ML IV PRN (13:40)
[2021-07-30] MEDS ORDERED: EPOETIN ALFA-EPBX 20,000 UNIT/ML 1 ML MDV IV ONE (13:40)
[2021-07-30] MEDS ORDERED: heparin 1,000 units/ml 10ml inj HE ONE ×2 (13:45)
[2021-07-30] MEDS: NORepinephrine 8mg/ 250ml NS 250 ML IV SCH (14:26)
--- NOTE | 2021-07-30 18:19 | NUR ---
Patient in room CICU 2010. I have received report from FAVIAN Weller and had the opportunity to ask questions and assume patient care. Patient receiving hemodialysis.
--- NOTE | 2021-07-30 18:19 | NUR ---
Patient in room CICU 2010. I have received report from and had the opportunity to ask questions and assume patient care.
[2021-07-30] MEDS: insulin glargine (Lantus) pen - multi-dose SQ SCH (23:27)
[2021-07-31] VITALS (35 sets, daily range): BP systolic 92–143; BP diastolic 43–69
[2021-07-31] MEDS: amiodarone/D5 360MG/200ML BAG 200 ML IV SCH ×3 (01:41→18:59)
[2021-07-31 02:06] LABS: BASOPHILS % (AUTO) 0.1 % (0-1); EOSINOPHILS # (AUTO) 0.1 X10'3 (0-0.9); EOSINOPHILS % (AUTO) 0.6 % (0-6); HEMATOCRIT 23.6 % (35.0-45.0); LYMPHOCYTES # (AUTO) 0.3 X10'3 (1.1-4.8); LYMPHOCYTES % (AUTO) 3.4 % (21-51); MEAN CORPUSCULAR HGB CONC 34.1 g/dL (33.0-36.5); MEAN PLATELET VOLUME 9.7 FL (7.4-10.4); MONOCYTES # (AUTO) 0.5 X10'3 (0-0.9); MONOCYTES % (AUTO) 5.6 % (2-12); NEUTROPHILS # (AUTO) 7.7 X10'3 (1.8-7.7); NEUTROPHILS % (AUTO) 90.3 % (42-75); PLATELET COUNT 142 X10'3 (140-440); RED BLOOD COUNT 2.77 X10'6 (4.20-5.60); RED CELL DISTRIBUTION WIDTH 14.5 % (11.5-14.5); WHITE BLOOD COUNT 8.5 X10'3 (4.5-11.0)
[2021-07-31] MEDS: dexmedetomidine/D5W 100mL 100 ML IV SCH ×4 (02:17→17:43)
[2021-07-31 02:25] LABS: ANION GAP 12 (8-16); BLOOD UREA NITROGEN 49 MG/DL (7-18); BUN/CREATININE RATIO 13.3 (6.6-38.0); CALCIUM 8.8 MG/DL (8.5-10.1); CHLORIDE 98 MMOL/L (99-107); CREATININE 3.68 MG/DL (0.40-0.90); GLUCOSE 198 MG/DL (70-104); MAGNESIUM 1.7 MG/DL (1.5-2.4); PHOSPHORUS 2.2 MG/DL (2.3-4.5); POTASSIUM 3.9 MMOL/L (3.5-5.1); SODIUM 134 MMOL/L (135-145); TOTAL CARBON DIOXIDE 24.1 MMOL/L (24-32); VANCOMYCIN,RANDOM 13.9 UG/ML; eGFR 12 ML/MIN
[2021-07-31] MEDS: insulin regular, human U-100 3ml vial - multi-dose SQ SCH ×4 (02:25→20:38)
[2021-07-31 02:55] LABS: ABG BASE EXCESS 2.7 mmol/L (-2.0-2.0); ABG HCO3 26.2 mmol/L (22.0-26.0); ABG OXYGEN SATURATION 95.7 % (94-97); ABG PCO2 (T) 34.9 mmHg (32.0-45.0); ABG PO2 (T) 76.9 mmHg (75.0-100.0); FCOHb 0.3 % (0.0-3.9); FMetHb 0.4 % (0.0-1.5); PATIENT TEMPERATURE 36.7; PEEP 5 cm H2O; TOTAL HEMOGLOBIN 8.4 G/dl (12.0-16.0)
[2021-07-31] MEDS: VANCOMYCIN LEVEL IV SCH (03:00)
[2021-07-31] MEDS: FENTANYL-0.9 % NACL/PF 100 ML IV PRN ×3 (04:00→23:18)
--- NOTE | 2021-07-31 04:30 | NUR ---
Rounds with Dr. Chapman. Discussed patients extubation safety. No cuff leak present, patients weakness was addressed. MD to make recommendations with oncoming MD for day shift.
[2021-07-31] MEDS: NORepinephrine 8mg/ 250ml NS 250 ML IV SCH ×2 (04:45→19:04)
[2021-07-31] MEDS: budesonide 0.5mg/2ml UD nebule IH SCH ×3 (04:47→19:04)
[2021-07-31 05:28] LABS: TOTAL CELLS COUNTED 100
[2021-07-31 05:29] LABS: BURR CELLS 1+; PLATELET ESTIMATE DECREASED
[2021-07-31 05:30] LABS: ANISOCYTOSIS FEW; POLYCHROMASIA FEW
--- NOTE | 2021-07-31 05:42 | NUR ---
Patient with improvements in mental status, more awake, following commands quickly. Continues to be weak to upper extremities bilaterally. Patient is nodding head yes and no to questions.
--- NOTE | 2021-07-31 06:35 | NUR ---
Problems reprioritized. Patient report given, questions answered & plan of care reviewed with FAVIAN Estrada.
--- NOTE | 2021-07-31 06:35 | NUR ---
Patient in room CICU 2010. I have received report from FAVIAN Bridges and had the opportunity to ask questions and assume patient care. Bedside report received. Patient repositioned and oral care given. VSS. BLL. Restraints in place to bilateral upper extremities.
[2021-07-31] MEDS ORDERED: dexamethasone 4mg/ml inj IV SCH (08:20)
[2021-07-31] MEDS: pantoprazole 40MG/NS 100ML BAG 100 ML IV SCH (08:25)
[2021-07-31] MEDS: atorvastatin 20mg tablet OGT SCH (08:25)
[2021-07-31] MEDS: OLANZapine 2.5MG tablet OGT SCH (08:25)
[2021-07-31] MEDS: cefepime 1GM in D5W 50mL 50 ML IV SCH (08:25)
[2021-07-31] MEDS: levoTHYROXINE 25mcg tablet OGT SCH (08:25)
[2021-07-31] MEDS: zinc sulfate 220mg capsule PO SCH (08:25)
[2021-07-31] MEDS: apixaban 5mg tablet OGT SCH ×2 (08:25→19:40)
[2021-07-31] MEDS ORDERED: VANCOMYCIN 1GM/200ML IVPB 200 ML IV ONE (09:00)
--- NOTE | 2021-07-31 12:24 | NUR ---
Reassessment: Pt remains on mechanical ventilator and sedated, tolerating TF at goal rate with GRV WNL. Pt s/p HD 07/30 with 2.6L fluid removed per I&O. LBM 07/31, documented w/ having diarrhea and 120ml stool output from rectal tube per EMR. No changes to nutrition intervention at this time. Will continue to follow. Recommendations: 1.Continuous TF per MD using Vital HP with 60 mL/hr goal to provide 1440 mL volume/day, 1440 kcal, 1204mL water, and 125 g protein. 2. Additional water flush per bounty trapper given pt on HD 3. Monitor need for phos binder given HD per MD discretion 4. Prealbumin q Friday/ 5. Daily scaled weights 6. Routine bowel care 7. Advance to carb controlled diet as medically indicated following extubation, will need BSS with ST Addendum: 07/31/21 at [address] Amended: Links added. Addendum: 07/31/21 at [address] I have reviewed and agree with note by Tire Beader MakerKadeem Oliveira RD
--- NOTE | 2021-07-31 12:42 | NUR ---
Roney and arterial line removed from left groin per MD order. Pressure applied for 30 minutes until bleeding stopped. Groin dressed with clean gauze and Tegaderm.
[2021-07-31] MEDS: dexamethasone 4mg/ml inj IV SCH ×2 (16:13→23:16)
[2021-07-31] MEDS: ipratropium/albuterol 3ml nebule NEB PRN (19:04)
[2021-07-31] MEDS: insulin glargine (Lantus) pen - multi-dose SQ SCH (20:31)
[2021-08-01] VITALS (34 sets, daily range): BP systolic 108–136; BP diastolic 51–66
[2021-08-01] MEDS: dexmedetomidine/D5W 100mL 100 ML IV SCH ×4 (00:41→20:20)
[2021-08-01] MEDS: insulin regular, human U-100 3ml vial - multi-dose SQ SCH ×5 (02:20→20:46)
[2021-08-01 02:57] LABS: BASOPHILS % (AUTO) 0.1 % (0-1); EOSINOPHILS % (AUTO) 0.1 % (0-6); HEMATOCRIT 23.2 % (35.0-45.0); HEMOGLOBIN 7.9 g/dl (12.0-16.0); LYMPHOCYTES # (AUTO) 0.3 X10'3 (1.1-4.8); LYMPHOCYTES % (AUTO) 2.9 % (21-51); MEAN CORPUSCULAR HEMOGLOBIN 28.8 PG (27.0-31.0); MEAN CORPUSCULAR HGB CONC 33.9 g/dL (33.0-36.5); MEAN CORPUSCULAR VOLUME 84.9 FL (78-98); MONOCYTES # (AUTO) 0.6 X10'3 (0-0.9); MONOCYTES % (AUTO) 5.3 % (2-12); NEUTROPHILS % (AUTO) 91.6 % (42-75); PLATELET COUNT 125 X10'3 (140-440); RED BLOOD COUNT 2.73 X10'6 (4.20-5.60); RED CELL DISTRIBUTION WIDTH 15.1 % (11.5-14.5)
[2021-08-01 03:00] LABS: ABG BASE EXCESS -3.3 mmol/L (-2.0-2.0); ABG HCO3 20.1 mmol/L (22.0-26.0); ABG OXYGEN SATURATION 94.1 % (94-97); ABG PCO2 (T) 29.7 mmHg (32.0-45.0); ABG PO2 (T) 70.7 mmHg (75.0-100.0); ALLEN'S TEST POSITIVE; FCOHb 0.3 % (0.0-3.9); FMetHb 0.3 % (0.0-1.5); FO2Hb 93.5 % (94-97); PEEP 5 cm H2O; TOTAL HEMOGLOBIN 8.7 G/dl (12.0-16.0)
[2021-08-01] MEDS: VANCOMYCIN LEVEL IV SCH (03:00)
[2021-08-01 03:14] LABS: ALBUMIN 1.8 G/DL (3.4-5.0); ANION GAP 15 (8-16); BLOOD UREA NITROGEN 77 MG/DL (7-18); BUN/CREATININE RATIO 16.1 (6.6-38.0); CHLORIDE 94 MMOL/L (99-107); CREATININE 4.77 MG/DL (0.40-0.90); GLUCOSE 282 MG/DL (70-104); MAGNESIUM 1.7 MG/DL (1.5-2.4); PHOSPHORUS 3.4 MG/DL (2.3-4.5); POTASSIUM 4.6 MMOL/L (3.5-5.1); SODIUM 131 MMOL/L (135-145); TOTAL CARBON DIOXIDE 21.9 MMOL/L (24-32); VANCOMYCIN,RANDOM 26.2 UG/ML; eGFR 9 ML/MIN
[2021-08-01] MEDS: amiodarone/D5 360MG/200ML BAG 200 ML IV SCH ×2 (06:41→18:32)
[2021-08-01] MEDS: levoTHYROXINE 25mcg tablet OGT SCH (07:00)
[2021-08-01] MEDS: budesonide 0.5mg/2ml UD nebule IH SCH ×2 (07:02→18:59)
[2021-08-01] MEDS: apixaban 5mg tablet OGT SCH ×2 (08:00→20:21)
[2021-08-01] MEDS ORDERED: albumin (human) 25% 100ml IV 100 ML IV PRN (08:00)
[2021-08-01] MEDS ORDERED: heparin 1,000 units/ml 10ml inj HE ONE ×2 (08:00)
[2021-08-01] MEDS ORDERED: EPOETIN ALFA-EPBX 20,000 UNIT/ML 1 ML MDV IV ONE (08:00)
[2021-08-01] MEDS: cefepime 1GM in D5W 50mL 50 ML IV SCH (08:39)
[2021-08-01] MEDS: dexamethasone 4mg/ml inj IV SCH ×3 (08:39→20:21)
[2021-08-01] MEDS: pantoprazole 40MG/NS 100ML BAG 100 ML IV SCH (08:40)
[2021-08-01] MEDS: atorvastatin 20mg tablet OGT SCH (08:40)
[2021-08-01] MEDS: OLANZapine 2.5MG tablet OGT SCH (08:40)
[2021-08-01] MEDS: zinc sulfate 220mg capsule PO SCH (08:40)
[2021-08-01] MEDS: NORepinephrine 8mg/ 250ml NS 250 ML IV SCH (09:23)
[2021-08-01] MEDS ORDERED: propofol 1000mg/100ml bottle 100 ML IV ONE (09:42)
--- NOTE | 2021-08-01 12:16 | NUR ---
F/u: Per patient's family patient required thickened liquids/food MILLER HEAD ASSISTANT WET PROCESS and pt was consuming foods such as applesauce, apple juice, gelatin, and mashed potatoes. Per family member pt would cough with thin liquids. Recommend BSS with ST prior to PO diet advancement following extubation. Addendum: 08/01/21 at [address] Amended: Links added.
--- NOTE | 2021-08-01 12:47 | NUR ---
late entry for 1120. pt was extubated with md at bedside. tolerated nc x 10 minutes when airway compromise was noted per pt complaint and audible stridor with desaturations. the pt was then reintubated at 1140 with a 7.5 ett. color change noted on capnography and bilat breath sounds were noted upon auscultation. hr and bp remained stable throughout. pt now resting comfortably on previous settings and sedation. plan is to transfer for ENT eval.
[2021-08-01] MEDS: FENTANYL-0.9 % NACL/PF 100 ML IV PRN (15:09)
[2021-08-01] MEDS: insulin glargine (Lantus) pen - multi-dose SQ SCH (20:44)
[2021-08-01] MEDS: fentaNYL/PF 50MCG/1 ML 2ML syringe IV PRN (21:30)
[2021-08-02] VITALS (32 sets, daily range): BP systolic 88–139; BP diastolic 48–63
[2021-08-02] MEDS: dexmedetomidine/D5W 100mL 100 ML IV SCH ×4 (01:07→15:44)
[2021-08-02] MEDS: dexamethasone 4mg/ml inj IV SCH ×4 (01:36→20:34)
[2021-08-02] MEDS: insulin regular, human U-100 3ml vial - multi-dose SQ SCH ×3 (02:12→20:40)
[2021-08-02 02:13] LABS: BASOPHILS % (AUTO) 0.1 % (0-1); EOSINOPHILS % (AUTO) 0 % (0-6); HEMATOCRIT 22.4 % (35.0-45.0); HEMOGLOBIN 7.4 g/dl (12.0-16.0); LYMPHOCYTES # (AUTO) 0.5 X10'3 (1.1-4.8); LYMPHOCYTES % (AUTO) 2.9 % (21-51); MEAN CORPUSCULAR HEMOGLOBIN 28.1 PG (27.0-31.0); MEAN CORPUSCULAR HGB CONC 33.1 g/dL (33.0-36.5); MEAN CORPUSCULAR VOLUME 84.8 FL (78-98); MEAN PLATELET VOLUME 10.3 FL (7.4-10.4); MONOCYTES # (AUTO) 0.9 X10'3 (0-0.9); MONOCYTES % (AUTO) 5.5 % (2-12); NEUTROPHILS # (AUTO) 15.1 X10'3 (1.8-7.7); NEUTROPHILS % (AUTO) 91.5 % (42-75); PLATELET COUNT 137 X10'3 (140-440); RED BLOOD COUNT 2.65 X10'6 (4.20-5.60); RED CELL DISTRIBUTION WIDTH 14.8 % (11.5-14.5); WHITE BLOOD COUNT 16.6 X10'3 (4.5-11.0)
[2021-08-02 02:28] LABS: ALBUMIN 1.7 G/DL (3.4-5.0); ANION GAP 17 (8-16); BLOOD UREA NITROGEN 97 MG/DL (7-18); BUN/CREATININE RATIO 17.5 (6.6-38.0); CALCIUM 8.5 MG/DL (8.5-10.1); CHLORIDE 94 MMOL/L (99-107); CREATININE 5.53 MG/DL (0.40-0.90); GLUCOSE 260 MG/DL (70-104); MAGNESIUM 1.8 MG/DL (1.5-2.4); PHOSPHORUS 4.8 MG/DL (2.3-4.5); POTASSIUM 4.9 MMOL/L (3.5-5.1); PREALBUMIN 15.6 MG/DL (19-36); SODIUM 132 MMOL/L (135-145); TOTAL CARBON DIOXIDE 20.6 MMOL/L (24-32); eGFR 8 ML/MIN
[2021-08-02 03:33] LABS: ABG BASE EXCESS -4.2 mmol/L (-2.0-2.0); ABG HCO3 20.7 mmol/L (22.0-26.0); ABG OXYGEN SATURATION 96.5 % (94-97); ABG PCO2 (T) 36.8 mmHg (32.0-45.0); ABG PO2 (T) 89.1 mmHg (75.0-100.0); ALLEN'S TEST Modified; FCOHb 0.3 % (0.0-3.9); FMetHb 0.5 % (0.0-1.5); FO2Hb 95.7 % (94-97); PATIENT TEMPERATURE 36.6; PEEP 5 cm H2O; TOTAL HEMOGLOBIN 9.2 G/dl (12.0-16.0)
[2021-08-02] MEDS: FENTANYL-0.9 % NACL/PF 100 ML IV PRN ×4 (03:57→20:48)
[2021-08-02 04:15] LABS: TOTAL CELLS COUNTED 100
[2021-08-02 04:17] LABS: PLATELET ESTIMATE DECREASED
[2021-08-02 04:27] LABS: ANISOCYTOSIS FEW
[2021-08-02 04:28] LABS: BURR CELLS FEW; POLYCHROMASIA FEW
--- NOTE | 2021-08-02 06:27 | NUR ---
Problems reprioritized. Patient report given, questions answered & plan of care reviewed with, Sole BALLESTEROS.
[2021-08-02] MEDS: VANCOMYCIN LEVEL IV SCH (06:51)
[2021-08-02] MEDS: budesonide 0.5mg/2ml UD nebule IH SCH ×2 (07:20→21:35)
[2021-08-02] MEDS: amiodarone/D5 360MG/200ML BAG 200 ML IV SCH (09:17)
[2021-08-02] MEDS: atorvastatin 20mg tablet OGT SCH (09:18)
[2021-08-02] MEDS: levoTHYROXINE 25mcg tablet OGT SCH (09:18)
[2021-08-02] MEDS: zinc sulfate 220mg capsule PO SCH (09:18)
[2021-08-02] MEDS: pantoprazole 40MG/NS 100ML BAG 100 ML IV SCH (09:18)
[2021-08-02] MEDS: apixaban 5mg tablet OGT SCH (09:18)
[2021-08-02] MEDS ORDERED: fentaNYL/PF 50MCG/1 ML 2ML syringe ONE (10:03)
[2021-08-02] MEDS ORDERED: midazolam 1 mg/ML 2ml injection ONE (10:03)
[2021-08-02] MEDS ORDERED: heparin 1,000unit/ml 10ml vial 10 ML ONE (10:05)
[2021-08-02] MEDS ORDERED: LIDOcaine 1% w/EPI 1:100,000 30ml vial (MDV) ONE (10:05)
[2021-08-02] MEDS ORDERED: LIDOcaine 1% (10mg/ml)w/preservative inj. 20ml MDV ONE (10:22)
[2021-08-02] MEDS ORDERED: iohexol 300 MG/1 ML 50ml polymer ONE (10:27)
[2021-08-02] MEDS ORDERED: normal saline 1000ml 100 ML IV PRN (10:50)
[2021-08-02] MEDS ORDERED: EPOETIN ALFA-EPBX 20,000 UNIT/ML 1 ML MDV IV ONE (10:50)
[2021-08-02] MEDS ORDERED: heparin 1,000 units/ml 10ml inj HE ONE ×2 (10:55)
[2021-08-02] MEDS: amiodarone 200mg tablet PO SCH ×2 (14:00→23:36)
[2021-08-02] MEDS: propofol 1000mg/100ml bottle 100 ML IV SCH (18:56)
[2021-08-02 19:15] LABS: TRIGLYCERIDES 34 MG/DL (20-135)
[2021-08-02] MEDS: insulin glargine (Lantus) pen - multi-dose SQ SCH (20:41)
[2021-08-03] VITALS (31 sets, daily range): BP systolic 76–183; BP diastolic 38–77
[2021-08-03] MEDS: propofol 1000mg/100ml bottle 100 ML IV SCH ×3 (00:33→19:25)
[2021-08-03] MEDS: FENTANYL-0.9 % NACL/PF 100 ML IV PRN ×6 (01:11→20:34)
[2021-08-03] MEDS: dexamethasone 4mg/ml inj IV SCH ×4 (02:06→20:00)
[2021-08-03] MEDS: insulin regular, human U-100 3ml vial - multi-dose SQ SCH ×4 (02:09→21:01)
[2021-08-03] MEDS: VANCOMYCIN LEVEL IV SCH (03:00)
[2021-08-03 03:01] LABS: BASOPHILS % (AUTO) 0 % (0-1); EOSINOPHILS % (AUTO) 0 % (0-6); HEMATOCRIT 24.2 % (35.0-45.0); HEMOGLOBIN 8.1 g/dl (12.0-16.0); LYMPHOCYTES # (AUTO) 1.1 X10'3 (1.1-4.8); LYMPHOCYTES % (AUTO) 4.4 % (21-51); MEAN CORPUSCULAR HEMOGLOBIN 28.4 PG (27.0-31.0); MEAN CORPUSCULAR HGB CONC 33.4 g/dL (33.0-36.5); MEAN PLATELET VOLUME 10.1 FL (7.4-10.4); MONOCYTES # (AUTO) 1.8 X10'3 (0-0.9); MONOCYTES % (AUTO) 7.3 % (2-12); NEUTROPHILS # (AUTO) 21.4 X10'3 (1.8-7.7); NEUTROPHILS % (AUTO) 88.3 % (42-75); PLATELET COUNT 167 X10'3 (140-440); RED BLOOD COUNT 2.84 X10'6 (4.20-5.60); RED CELL DISTRIBUTION WIDTH 14.9 % (11.5-14.5); WHITE BLOOD COUNT 24.3 X10'3 (4.5-11.0)
[2021-08-03 03:15] LABS: ALBUMIN 1.8 G/DL (3.4-5.0); ANION GAP 14 (8-16); BLOOD UREA NITROGEN 69 MG/DL (7-18); BUN/CREATININE RATIO 16.1 (6.6-38.0); CALCIUM 8.4 MG/DL (8.5-10.1); CHLORIDE 97 MMOL/L (99-107); CREATININE 4.28 MG/DL (0.40-0.90); GLUCOSE 205 MG/DL (70-104); MAGNESIUM 1.8 MG/DL (1.5-2.4); POTASSIUM 3.8 MMOL/L (3.5-5.1); SODIUM 136 MMOL/L (135-145); TOTAL CARBON DIOXIDE 25.3 MMOL/L (24-32); TRIGLYCERIDES 85 MG/DL (20-135); VANCOMYCIN,RANDOM 16.9 UG/ML; eGFR 10 ML/MIN
[2021-08-03 04:21] LABS: TOTAL CELLS COUNTED 100
[2021-08-03 04:26] LABS: ANISOCYTOSIS FEW; PLATELET ESTIMATE NORMAL
[2021-08-03 04:27] LABS: POLYCHROMASIA FEW; SCHISTOCYTES FEW
[2021-08-03] MEDS: budesonide 0.5mg/2ml UD nebule IH SCH (07:26)
[2021-08-03] MEDS: pantoprazole 40MG/NS 100ML BAG 100 ML IV SCH (07:46)
[2021-08-03] MEDS: zinc sulfate 220mg capsule PO SCH (07:47)
[2021-08-03] MEDS: heparin, porcine 5000 units/ml vial SQ SCH ×2 (07:47→16:00)
[2021-08-03] MEDS: levoTHYROXINE 25mcg tablet OGT SCH (07:47)
[2021-08-03] MEDS: atorvastatin 20mg tablet OGT SCH (07:47)
[2021-08-03] MEDS: amiodarone 200mg tablet PO SCH ×3 (07:47→21:11)
--- NOTE | 2021-08-03 14:42 | NUR ---
Reassessment: Pt remains intubated and tolerating TF at goal rate with GRV WNL. Noted pt started on Propofol, visualized at bedside to be running at 9.993 mcg/kg/min which would provide roughly 157 kcal/day. Will hold off on adjusting TF recommendations at this time as Propofol rate being adjusted. Pt planning to get a trach and PEG per MD at critical care rounds. Patient's SO seen at bedside, states patient was using thickener at home though SO unsure of consistency pt was able to tolerate, states it was the consistency of Malt-O-Meal. Per SO patient's main food source was gelatin, mashed potatoes, and applesauce, of which pt would use to take meds. Patient's SO agreeable to BSS with ST once appropriate to determine appropriate texture modification. LBM 08/02 though no documentation of stool output in I&O. Will continue to follow and make recommendations as appropriate. Recommendations: 1.Continuous TF per MD using Vital HP with 60 mL/hr goal to provide 1440 mL volume/day, 1440 kcal, 1204mL water, and 125 g protein. 2. Monitor Propofol rate and need to adjust TF 3. Additional water flush per hoop maker given pt on HD 4. Monitor need for phos binder given HD per MD discretion 5. Prealbumin q Friday/ 6. Daily scaled weights 7. Routine bowel care 8. Advance to carb controlled diet as medically indicated following extubation, will need BSS with ST; FOOD MANAGER pt only able to tolerate pureed food with thickened liquids Addendum: 08/03/21 at [address] Amended: Links added.
[2021-08-03] MEDS ORDERED: fentaNYL 50MCG/HOUR patch.TD72 TD SCH (17:34)
[2021-08-03] MEDS: insulin glargine (Lantus) pen - multi-dose SQ SCH (21:03)
--- NOTE | 2021-08-03 22:08 | NUR ---
Spoke with Dr. Jovel on phone regarding inability to manage pain with current orders. Orders noted.
[2021-08-03] MEDS ORDERED: HYDROmorphone 1 mg/ml syringe IV PRN (22:10)
[2021-08-04] VITALS (33 sets, daily range): BP systolic 86–180; BP diastolic 42–81
[2021-08-04] MEDS: midazolam 100mg in NS 100ml 100 ML IV PRN (00:27)
--- NOTE | 2021-08-04 00:27 | NUR ---
Dilaudid effective only 1.5 hrs, then pt awake, kicking feet, BPS 180. Per Dr. Tolentino's orders, Dilaudid DC'd and Versed drip started.
[2021-08-04] MEDS: dexamethasone 4mg/ml inj IV SCH ×4 (01:15→22:23)
[2021-08-04] MEDS: propofol 1000mg/100ml bottle 100 ML IV SCH (01:34)
[2021-08-04] MEDS: insulin regular, human U-100 3ml vial - multi-dose SQ SCH ×4 (02:00→21:04)
[2021-08-04] MEDS: FENTANYL-0.9 % NACL/PF 100 ML IV PRN ×8 (02:15→21:36)
[2021-08-04 03:32] LABS: BASOPHILS % (AUTO) 0 % (0-1); EOSINOPHILS % (AUTO) 0 % (0-6); MEAN CORPUSCULAR VOLUME 85.3 FL (78-98); MONOCYTES # (AUTO) 1.9 X10'3 (0-0.9)
[2021-08-04 03:34] LABS: HEMATOCRIT 24.2 % (35.0-45.0); LYMPHOCYTES # (AUTO) 1.4 X10'3 (1.1-4.8); LYMPHOCYTES % (AUTO) 3.5 % (21-51); MEAN CORPUSCULAR HEMOGLOBIN 28.1 PG (27.0-31.0); MEAN PLATELET VOLUME 10.1 FL (7.4-10.4); MONOCYTES % (AUTO) 4.9 % (2-12); NEUTROPHILS # (AUTO) 35.7 X10'3 (1.8-7.7); NEUTROPHILS % (AUTO) 91.6 % (42-75); PLATELET COUNT 216 X10'3 (140-440); RED BLOOD COUNT 2.84 X10'6 (4.20-5.60); RED CELL DISTRIBUTION WIDTH 15.2 % (11.5-14.5)
[2021-08-04 03:39] LABS: ALBUMIN 1.9 G/DL (3.4-5.0); ANION GAP 17 (8-16); BLOOD UREA NITROGEN 91 MG/DL (7-18); BUN/CREATININE RATIO 17.4 (6.6-38.0); CALCIUM 8.3 MG/DL (8.5-10.1); CHLORIDE 95 MMOL/L (99-107); CREATININE 5.24 MG/DL (0.40-0.90); GLUCOSE 174 MG/DL (70-104); MAGNESIUM 1.8 MG/DL (1.5-2.4); PHOSPHORUS 5.3 MG/DL (2.3-4.5); POTASSIUM 4.4 MMOL/L (3.5-5.1); SODIUM 135 MMOL/L (135-145); TOTAL CARBON DIOXIDE 23.4 MMOL/L (24-32); VANCOMYCIN,RANDOM 15.8 UG/ML; eGFR 8 ML/MIN
--- NOTE | 2021-08-04 05:56 | NUR ---
noted decrease in o2 sat to 86% after CXR and partial linen change. suctioned lg amount thin, white secretions suctioned via ETT. slow improvement to 94% with 100% FiO2. Vent adjusted to 45% FiO2 with sats maintained at 94%
[2021-08-04] MEDS ORDERED: vancomycin/NS 1 GM ADD-VANTAGE 250 ML IV PRN (06:23)
[2021-08-04] MEDS: budesonide 0.5mg/2ml UD nebule IH SCH (07:13)
[2021-08-04 07:18] LABS: TOTAL CELLS COUNTED 100
[2021-08-04 07:19] LABS: HYPOCHROMASIA 1+; NUCLEATED RED BLOOD CELLS 1 /100WBC (0-0); PLATELET ESTIMATE NORMAL; SCHISTOCYTES FEW
[2021-08-04] MEDS: zinc sulfate 220mg capsule PO SCH (07:43)
[2021-08-04] MEDS: levoTHYROXINE 25mcg tablet OGT SCH (07:43)
[2021-08-04] MEDS: atorvastatin 20mg tablet OGT SCH (07:43)
[2021-08-04] MEDS: amiodarone 200mg tablet PO SCH ×3 (07:43→22:23)
[2021-08-04] MEDS: pantoprazole 40MG/NS 100ML BAG 100 ML IV SCH (07:43)
[2021-08-04] MEDS: VANCOMYCIN LEVEL IV SCH (07:44)
[2021-08-04] MEDS ORDERED: heparin 1,000unit/ml 10ml vial 10 ML IV ONE (08:00)
[2021-08-04] MEDS ORDERED: heparin 1,000 units/ml 10ml inj HE ONE ×2 (08:00)
[2021-08-04] MEDS ORDERED: EPOETIN ALFA-EPBX 20,000 UNIT/ML 1 ML MDV IV ONE (08:00)
[2021-08-04] MEDS ORDERED: normal saline 1000ml 250 ML IV PRN (08:00)
[2021-08-04] MEDS ORDERED: ondansetron 4mg/5ml UD cup OGT PRN (13:45)
--- NOTE | 2021-08-04 17:39 | NUR ---
Transfer note Dr. Harmon called [facility] number stating Dr. Daniels has accepted this pt. Call to transfer center ([phone])they indicate we need a authorization for transfer. DC planning notes reviewed which indicate a transferred was authorized earlier this week. Called DC planning 1124 and left a message after discussing issues with the night warehouse selector. She indicated weneed to wait until tomorrow for DC planning to work out this approval process for the pt.
[2021-08-04] MEDS: insulin glargine (Lantus) pen - multi-dose SQ SCH (22:37)
[2021-08-05] VITALS (26 sets, daily range): BP systolic 98–196; BP diastolic 49–86
[2021-08-05] MEDS: FENTANYL-0.9 % NACL/PF 100 ML IV PRN ×5 (01:21→17:11)
[2021-08-05] MEDS: midazolam 100mg in NS 100ml 100 ML IV PRN (01:41)
[2021-08-05] MEDS: dexamethasone 4mg/ml inj IV SCH ×3 (02:13→15:40)
[2021-08-05] MEDS: insulin regular, human U-100 3ml vial - multi-dose SQ SCH ×3 (02:25→13:33)
[2021-08-05] MEDS: VANCOMYCIN LEVEL IV SCH (02:28)
[2021-08-05 03:03] LABS: BASOPHILS % (AUTO) 0 % (0-1); EOSINOPHILS % (AUTO) 0 % (0-6); HEMATOCRIT 24.5 % (35.0-45.0); LYMPHOCYTES # (AUTO) 0.6 X10'3 (1.1-4.8); LYMPHOCYTES % (AUTO) 1.9 % (21-51); MEAN CORPUSCULAR HEMOGLOBIN 27.8 PG (27.0-31.0); MEAN CORPUSCULAR HGB CONC 32.8 g/dL (33.0-36.5); MEAN CORPUSCULAR VOLUME 84.8 FL (78-98); MEAN PLATELET VOLUME 9.7 FL (7.4-10.4); MONOCYTES # (AUTO) 1.7 X10'3 (0-0.9); NEUTROPHILS # (AUTO) 31.6 X10'3 (1.8-7.7); NEUTROPHILS % (AUTO) 93.1 % (42-75); PLATELET COUNT 213 X10'3 (140-440); RED BLOOD COUNT 2.89 X10'6 (4.20-5.60); RED CELL DISTRIBUTION WIDTH 15.6 % (11.5-14.5)
[2021-08-05 03:10] LABS: ANION GAP 13 (8-16); BLOOD UREA NITROGEN 56 MG/DL (7-18); BUN/CREATININE RATIO 15.4 (6.6-38.0); CALCIUM 8.3 MG/DL (8.5-10.1); CHLORIDE 99 MMOL/L (99-107); CREATININE 3.64 MG/DL (0.40-0.90); GLUCOSE 185 MG/DL (70-104); MAGNESIUM 1.9 MG/DL (1.5-2.4); POTASSIUM 4.8 MMOL/L (3.5-5.1); SODIUM 138 MMOL/L (135-145); TOTAL CARBON DIOXIDE 26.1 MMOL/L (24-32); VANCOMYCIN,RANDOM 12.5 UG/ML; eGFR 13 ML/MIN
[2021-08-05 04:45] LABS: PLATELET ESTIMATE NORMAL; TOTAL CELLS COUNTED 100
[2021-08-05] MEDS: amiodarone 200mg tablet PO SCH ×2 (07:07→13:04)
[2021-08-05] MEDS: atorvastatin 20mg tablet OGT SCH (07:07)
[2021-08-05] MEDS: levoTHYROXINE 25mcg tablet OGT SCH (07:07)
[2021-08-05] MEDS: zinc sulfate 220mg capsule PO SCH (07:07)
[2021-08-05] MEDS: pantoprazole 40MG/NS 100ML BAG 100 ML IV SCH (07:08)
[2021-08-05] MEDS: ipratropium/albuterol 3ml nebule NEB PRN (07:35)
[2021-08-05] MEDS: budesonide 0.5mg/2ml UD nebule IH SCH (07:35)
[2021-08-05] MEDS ORDERED: vancomycin/NS 1 GM ADD-VANTAGE 250 ML IV ONE (08:40)
--- NOTE | 2021-08-05 09:51 | NUR ---
Pt's Michael voiced his concerns to charge, primary RN and Dr. Squires regarding pt's surgery not happening yesterday as planned. Case Management here to assist with transferring pt. to [facility] for ENT consult/trach per Dr. Moura. Michael assured communication would be prioroty today.
--- NOTE | 2021-08-05 11:09 | NUR ---
Bilat. upper ext. ultrasound being done now.
--- NOTE | 2021-08-05 11:47 | NUR ---
sound effects manager arranging transfer to [facility] [place] currently.
[2021-08-05] MEDS ORDERED: tirofiban 5mg in NS 100mL 100 ML IV SCH (12:40)
[2021-08-05] MEDS ORDERED: tirofiban 12.5mg in NS 250mL 250 ML IV SCH (12:53)
--- NOTE | 2021-08-05 13:46 | NUR ---
Aggrastat started at [address] Squires's order.
--- NOTE | 2021-08-05 13:55 | NUR ---
Spoke with lining caser Jeannette wells. new Aggrastat gtt. and faxing report to [facility] re. vascular scan. Jeannette stated she would fax report.
[2021-08-05] MEDS: propofol 1000mg/100ml bottle 100 ML IV SCH (14:01)
--- NOTE | 2021-08-05 15:43 | NUR ---
Report called to Ivy BALLESTEROS at [facility]. Awaiting [facility] for transport. BLS transport came but pt. requires CCT (ACLS) transport. global commodity manager aware.
--- NOTE | 2021-08-05 18:06 | NUR ---
[facility] here to transport pt. to [facility]. Report given to Анна BALLESTEROS who will go with pt. to [facility].
== END 2021-08-05 21:56 | disposition critical access hospital (66) | DRG 870 ==
LOC: EEVIPCON 13:35 → ER 13:35 → ED HOLD 14:53 → CICU 2S 16:00
PROVIDERS: ADMIT Psychiatry & Neurology Neurocritical Care; ATTEND Psychiatry & Neurology Neurocritical Care
PROC: 5A1955Z Respiratory Ventilation, Greater than 96 Consecutive Hours (ICD-10-PCS; principal; 2021-07-22)
PROC: 0BH17EZ Insertion of Endotracheal Airway into Trachea, Via Natural or Artificial Opening (ICD-10-PCS; 2021-07-22)
PROC: 04HY32Z Insertion of Monitoring Device into Lower Artery, Percutaneous Approach (ICD-10-PCS; 2021-07-22)
PROC: 4A133B1 Monitoring of Arterial Pressure, Peripheral, Percutaneous Approach (ICD-10-PCS; 2021-07-22)
PROC: 4A133J1 Monitoring of Arterial Pulse, Peripheral, Percutaneous Approach (ICD-10-PCS; 2021-07-22)
PROC: 06HY33Z Insertion of Infusion Device into Lower Vein, Percutaneous Approach (ICD-10-PCS; 2021-07-22)
PROC: 02HV33Z Insertion of Infusion Device into Superior Vena Cava, Percutaneous Approach (ICD-10-PCS; 2021-07-22)
PROC: 5A1D70Z Performance of Urinary Filtration, Intermittent, Less than 6 Hours Per Day (ICD-10-PCS; 2021-07-22)
PROC: 5A1D70Z Performance of Urinary Filtration, Intermittent, Less than 6 Hours Per Day (ICD-10-PCS; 2021-07-23)
PROC: 5A1D70Z Performance of Urinary Filtration, Intermittent, Less than 6 Hours Per Day (ICD-10-PCS; 2021-07-26)
PROC: 5A1D70Z Performance of Urinary Filtration, Intermittent, Less than 6 Hours Per Day (ICD-10-PCS; 2021-07-28)
PROC: 5A1D70Z Performance of Urinary Filtration, Intermittent, Less than 6 Hours Per Day (ICD-10-PCS; 2021-07-30)
PROC: 0BJ08ZZ Inspection of Tracheobronchial Tree, Via Natural or Artificial Opening Endoscopic (ICD-10-PCS; 2021-08-01)
PROC: 0JH63XZ Insertion of Tunneled Vascular Access Device into Chest Subcutaneous Tissue and Fascia, Percutaneous Approach (ICD-10-PCS; 2021-08-02)
PROC: 02HV33Z Insertion of Infusion Device into Superior Vena Cava, Percutaneous Approach (ICD-10-PCS; 2021-08-02)
PROC: B548ZZA Ultrasonography of Superior Vena Cava, Guidance (ICD-10-PCS; 2021-08-02)
PROC: B5181ZA Fluoroscopy of Superior Vena Cava using Low Osmolar Contrast, Guidance (ICD-10-PCS; 2021-08-02)
PROC: B5181ZZ Fluoroscopy of Superior Vena Cava using Low Osmolar Contrast (ICD-10-PCS; 2021-08-02)
PROC: 5A1D70Z Performance of Urinary Filtration, Intermittent, Less than 6 Hours Per Day (ICD-10-PCS; 2021-08-02)
PROC: 5A1D70Z Performance of Urinary Filtration, Intermittent, Less than 6 Hours Per Day (ICD-10-PCS; 2021-08-04)
DX: A41.9 Sepsis, unspecified organism (principal); E88.3 Tumor lysis syndrome; G93.41 Metabolic encephalopathy; J96.01 Acute respiratory failure with hypoxia; N17.0 Acute kidney failure with tubular necrosis; E43 Unspecified severe protein-calorie malnutrition; D61.810 Antineoplastic chemotherapy induced pancytopenia; J18.9 Pneumonia, unspecified organism; C34.90 Malignant neoplasm of unspecified part of unspecified bronchus or lung; C79.70 Secondary malignant neoplasm of unspecified adrenal gland; E87.1 Hypo-osmolality and hyponatremia; E87.2 Acidosis; E87.0 Hyperosmolality and hypernatremia; B96.1 Klebsiella pneumoniae [K. pneumoniae] as the cause of diseases classified elsewhere; E03.9 Hypothyroidism, unspecified; E78.5 Hyperlipidemia, unspecified; E83.39 Other disorders of phosphorus metabolism; E86.0 Dehydration; E87.6 Hypokalemia; G89.29 Other chronic pain; E79.0 Hyperuricemia without signs of inflammatory arthritis and tophaceous disease; M54.9 Dorsalgia, unspecified; R19.7 Diarrhea, unspecified; E11.22 Type 2 diabetes mellitus with diabetic chronic kidney disease; I12.9 Hypertensive chronic kidney disease with stage 1 through stage 4 chronic kidney disease, or unspecified chronic kidney disease; J98.8 Other specified respiratory disorders; N18.9 Chronic kidney disease, unspecified; I95.9 Hypotension, unspecified; T45.1X5A Adverse effect of antineoplastic and immunosuppressive drugs, initial encounter; J20.9 Acute bronchitis, unspecified; I48.91 Unspecified atrial fibrillation; Z86.19 Personal history of other infectious and parasitic diseases; Z86.718 Personal history of other venous thrombosis and embolism; Z86.74 Personal history of sudden cardiac arrest; Z87.891 Personal history of nicotine dependence; Z90.710 Acquired absence of both cervix and uterus; Z92.3 Personal history of irradiation; Z99.2 Dependence on renal dialysis; Z88.2 Allergy status to sulfonamides; Z88.5 Allergy status to narcotic agent; Z79.899 Other long term (current) drug therapy; Z78.1 Physical restraint status; Z68.37 Body mass index [BMI] 37.0-37.9, adult
CPT/HCPCS: 31500; 31645; 36415; 36556; 36558; 36569; 36600; 70450; 70490; 71045; 71250; 74018; 74176; 76937; 76942; 77001; 80048; 80053; 80076; 80202; 80329; 82140; 82150; 82550; 82803; 82948; 82955; 83605; 83615; 83690; 83735; 83880; 84100; 84132; 84134; 84145; 84439; 84443; 84478; 84484; 84550; 85007; 85018; 85025; 85041; 85610; 85730; 86885; 86900; 86901; 87040; 87070; 87077; 87081; 87186; 87340; 87635; 90935; 93005; 93308; 93970; 94002; 94003; 94640; 94760; 94799; 96365; 99152; 99153; 99291; C1750; C1769; C1894; C9113; G0257; G0378; J0282; J0360; J0692; J0696; J0883; J1100; J1170; J1442; J1644; J1650; J1815; J2150; J2250; J2704; J2997; J3010; J3246; J3370; J3480; J3490; J7030; J7040; J7050; J7060; J7070; J7120; P9047; Q4081; Q9967

== ENCOUNTER 2021-08-10 17:59 | Inpatient (IN) | payer BC ==
[~2021-08-10] VITALS: Ht 157.5 cm; Wt 109.0 kg
[~2021-08-10 17:59] MED LIST changes: +ALBU8.5H17 PO; +ALLO100T PO; -ALLO300T8 PO; +BACL10TA2 PO; +BECL10.6 PO; -BENZ-49 PO; +HYDR-3965 PO; +LEVO50TA PO; -LEVO50TA8 PO; +LIDO700A47 TOP; -LIDOCAINE 2% 5 ML JELLY.ML. tube MM ONE; +LORA-268 PO; -LORA10TA7 PO; +OLAN2.5T28 PO; +ONDA-104 PO; -ONDA4TAB12 PO; +PROC10TA10 PO; -PROC5TAB56 PO; +ROSU5TAB12 PO; -TYLENOL PO; +ZOLP5TAB8 PO; -rocuronium 10mg/ml inj IV ONE
--- NOTE | 2021-08-10 23:47 | NUR ---
Received pt at this time. pt is responding to pain and following commands. Trach is in place stoma is red with brownish drainage. Trach is connected to vent with an Fio2 of 25% peep 8 rate 10 TV 400. Temp is 98.5 HR of 70, O2 saturation is 100%. BP 105/59. Precedex drip is connected at 0.4 mcg. Rectal tube is in place. Pt is stable at this time will continue to monitor.
[2021-08-11] VITALS (44 sets, daily range): BP systolic 67–169; BP diastolic 29–100
[2021-08-11] MEDS ORDERED: acetaminophen 325mg tablet PO PRN (00:10)
[2021-08-11] MEDS ORDERED: ondansetron/PF 4mg/2ml inj IV PRN (00:10)
[2021-08-11] MEDS ORDERED: magnesium hydroxide 30ml (MOM) UD suspension PO PRN (00:10)
[2021-08-11 02:08] LABS: BASOPHILS % (AUTO) 0.1 % (0-1); EOSINOPHILS % (AUTO) 0 % (0-6); LYMPHOCYTES # (AUTO) 1.1 X10'3 (1.1-4.8); LYMPHOCYTES % (AUTO) 3.2 % (21-51); MEAN CORPUSCULAR HEMOGLOBIN 27.1 PG (27.0-31.0); MEAN CORPUSCULAR HGB CONC 32.7 g/dL (33.0-36.5); MEAN CORPUSCULAR VOLUME 83.1 FL (78-98); MEAN PLATELET VOLUME 8.8 FL (7.4-10.4); MONOCYTES % (AUTO) 5.9 % (2-12); NEUTROPHILS # (AUTO) 30.7 X10'3 (1.8-7.7); NEUTROPHILS % (AUTO) 90.8 % (42-75); PLATELET COUNT 180 X10'3 (140-440); RED BLOOD COUNT 2.52 X10'6 (4.20-5.60)
[2021-08-11 02:16] LABS: HEMOGLOBIN 6.9 g/dl (12.0-16.0); WHITE BLOOD COUNT 33.8 X10'3 (4.5-11.0)
[2021-08-11 02:18] LABS: ALANINE AMINOTRANSFERASE 15 U/L (12-78); ALBUMIN 2.2 G/DL (3.4-5.0); ALBUMIN/GLOBULIN RATIO 0.8 (1.1-1.5); ALKALINE PHOSPHATASE 83 IU/L (46-116); ANION GAP 11 (8-16); ASPARTATE AMINO TRANSFERASE 15 U/L (10-37); BILIRUBIN,TOTAL 0.8 MG/DL (0.1-1.0); BLOOD UREA NITROGEN 52 MG/DL (7-18); BUN/CREATININE RATIO 10.4 (6.6-38.0); CALCIUM 8.4 MG/DL (8.5-10.1); CHLORIDE 103 MMOL/L (99-107); CREATININE 5.01 MG/DL (0.40-0.90); GLUCOSE 154 MG/DL (70-104); POTASSIUM 4.9 MMOL/L (3.5-5.1); SODIUM 138 MMOL/L (135-145); TOTAL CARBON DIOXIDE 24.1 MMOL/L (24-32); TOTAL PROTEIN 5.1 G/DL (6.4-8.2); eGFR 9 ML/MIN
--- NOTE | 2021-08-11 02:30 | NUR ---
Critical lab value of WBC 33.8, Hgb 6.9, Hct 21. Report critcal to MD 1 unit of PRBC ordered.
[2021-08-11 04:35] LABS: ANISOCYTOSIS 1+; PLATELET ESTIMATE NORMAL; POLYCHROMASIA FEW; TOTAL CELLS COUNTED 100
[2021-08-11] MEDS: dexmedetomidine/D5W 100mL 100 ML IV SCH ×4 (05:42→22:46)
--- NOTE | 2021-08-11 07:00 | NUR ---
Notified Pts Michael Pillai of critical lab value obtained consent for blood.
[2021-08-11] MEDS ORDERED: normal saline 1000ml 100 ML IV PRN (07:50)
[2021-08-11] MEDS ORDERED: heparin 1,000 units/ml 10ml inj HE ONE ×2 (07:50)
[2021-08-11] MEDS ORDERED: EPOETIN ALFA-EPBX 20,000 UNIT/ML 1 ML MDV IV ONE (07:50)
[2021-08-11] MEDS ORDERED: normal saline 1000ml 250 ML IV PRN (07:50)
[2021-08-11] MEDS ORDERED: heparin, porcine 5000 units/ml vial SQ SCH (08:00)
[2021-08-11] MEDS ORDERED: famotidine/PF 10 mg/ml inj IV SCH (08:00)
[2021-08-11] MEDS: pantoprazole 40MG/NS 100ML BAG 100 ML IV SCH (08:44)
[2021-08-11] MEDS: metroNIDAZOLE-Flagyl 500mg/NS 100 ML IV SCH ×2 (09:56→17:07)
--- NOTE | 2021-08-11 11:02 | NUR ---
Initial: Pt transferred back from [facility] s/p trach placement however did not get a PEG placed. Per EMR pt has an NGT in place though no TF consult at this time. Will place TF recommendations below in anticipation to resume TF. 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 No documented BM since admit though per EMR pt with diarrhea and with a rectal tube in place. Pt pending dialysis today per cashier checker note. Will continue to follow closely and make recommendations as appropriate. Recommendations: 1) Once TF, continuous Vital HP via NGT with 60 mL/hr goal to provide 1440 mL total volume/day, 1440 kcal, 1204 mL water, and 126 g protein. 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
[2021-08-11] MEDS ORDERED: tPA-cathflo 2 MG/2 ml IV flush IVF ONE ×3 (11:35→12:05)
[2021-08-11] MEDS ORDERED: amiodarone 150mg/dext, iso-os 100 ML IV ONE (11:56)
[2021-08-11] MEDS ORDERED: amiodarone 50MG/ML inj IV ONE (12:00)
[2021-08-11] MEDS ORDERED: LORazepam 2 mg/ml vial IV ONE (12:00)
[2021-08-11] MEDS ORDERED: LORazepam 2 mg/ml vial ONE (12:01)
[2021-08-11] MEDS ORDERED: amiodarone/D5 360MG/200ML BAG 200 ML IV ONE (12:08)
--- NOTE | 2021-08-11 13:31 | NUR ---
TF consult: See recommendations below. 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
[2021-08-11] MEDS: ipratropium/albuterol 3ml nebule NEB SCH ×3 (15:30→23:16)
[2021-08-11] MEDS ORDERED: heparin 10,000 units/1 ML INJ IV ONE (16:35)
[2021-08-11] MEDS ORDERED: NORepinephrine inj. 8 MG in dextrose 5%-water 242 ML IV SCH (16:45)
[2021-08-11] MEDS ORDERED: NORepinephrine 8mg/ 250ml NS 250 ML IV ONE (17:00)
[2021-08-11] MEDS: NORepinephrine inj. 8 MG in normal saline 250ml IV soln 242 ML IV SCH (18:20)
--- NOTE | 2021-08-11 19:04 | NUR ---
Received pt from night nurse in a stable condition. pt is responding to pain and following commands. Trach is in place stoma is red with brownish drainage. Trach is connected to vent with an Fio2 of 30% peep 8 rate 10 TV 400. Temp is 97.8 HR of 85, O2 saturation is 100%. BP within normal range. Precedex drip is running at 0.4 mcg. Rectal tube is in place. Pt is stable at this time will continue to monitor.
--- NOTE | 2021-08-11 19:07 | NUR ---
Patient put on CPAP trails of 12/21. Patient desaturated to the 80s 30minutes after, PS increased to 8, Fio2 to 40% then to 45%. Vent mode eventally changed back to A/C PRVC. Ativan 0.5mg administered, patient responded well to change, saturation back to 96%
--- NOTE | 2021-08-11 19:13 | NUR ---
Patient convert to Atrial fibrillation Amio bolus initiated, patient converted after completing the bolus dose.1st dose commenced and running
--- NOTE | 2021-08-11 19:18 | NUR ---
Patient was transfused with a unit of PRBC during hemodialysis.
--- NOTE | 2021-08-11 19:21 | NUR ---
Patient's blood pressure tanked to systolic of 70s and diastolic of 40s,patient was left in a positive fluid balance of 500,bp improved to systolic of 80s. Levo was initiated at 0.1mcg/kg/hour. Bp spiked to systolic of 200, levo tapered down to 0.3mcg/kg/hour.
[2021-08-11] MEDS: amiodarone/D5 360MG/200ML BAG 200 ML IV SCH (19:27)
[2021-08-11] MEDS: heparin 25,000 UNIT/250ml bag 250 ML IV SCH (19:46)
--- NOTE | 2021-08-11 20:34 | NUR ---
Sonogram diagnostic cancel to rule out DVT due to wrong order, Dr Alejandre was notified will have order reviewed in AM
[2021-08-11] MEDS: sodium chloride 3% for inhalation 4ml nebule IH SCH (23:18)
[2021-08-11] MEDS: morphine 2 MG/ML inj. syringe IV PRN (23:37)
[2021-08-12] VITALS (31 sets, daily range): BP systolic 87–145; BP diastolic 38–75
[2021-08-12] MEDS: metroNIDAZOLE-Flagyl 500mg/NS 100 ML IV SCH ×3 (00:30→15:54)
[2021-08-12] MEDS ORDERED: dextrose 50%-water 50ml dispensing syringe IV PRN ×2 (02:40)
[2021-08-12] MEDS ORDERED: DEXTROSE 15 GM of carb/4 tabs (each vial/BOTTLE has 4 tablets) PO PRN ×2 (02:40)
[2021-08-12] MEDS ORDERED: morphine 4 MG/ML inj SYRINge IV ONE (02:40)
[2021-08-12] MEDS ORDERED: glucagon, human recombinant 1mg kit SUBCUT PRN (02:40)
[2021-08-12] MEDS ORDERED: MESSAGE TO PHARMACY PO ONE (02:40)
[2021-08-12 03:07] LABS: BASOPHILS % (AUTO) 0.1 % (0-1); EOSINOPHILS % (AUTO) 0.1 % (0-6); LYMPHOCYTES # (AUTO) 0.9 X10'3 (1.1-4.8); LYMPHOCYTES % (AUTO) 2.6 % (21-51); MEAN CORPUSCULAR HEMOGLOBIN 27.9 PG (27.0-31.0); MEAN CORPUSCULAR HGB CONC 32.6 g/dL (33.0-36.5); MEAN CORPUSCULAR VOLUME 85.5 FL (78-98); MONOCYTES # (AUTO) 2.3 X10'3 (0-0.9); NEUTROPHILS # (AUTO) 30.3 X10'3 (1.8-7.7); NEUTROPHILS % (AUTO) 90.2 % (42-75); PLATELET COUNT 151 X10'3 (140-440); RED BLOOD COUNT 2.53 X10'6 (4.20-5.60); RED CELL DISTRIBUTION WIDTH 16.6 % (11.5-14.5)
[2021-08-12 03:15] LABS: ALANINE AMINOTRANSFERASE 16 U/L (12-78); ALBUMIN/GLOBULIN RATIO 0.7 (1.1-1.5); ALKALINE PHOSPHATASE 90 IU/L (46-116); ANION GAP 14 (8-16); ASPARTATE AMINO TRANSFERASE 11 U/L (10-37); BILIRUBIN,TOTAL 0.6 MG/DL (0.1-1.0); BLOOD UREA NITROGEN 35 MG/DL (7-18); BUN/CREATININE RATIO 10.1 (6.6-38.0); CHLORIDE 99 MMOL/L (99-107); CREATININE 3.45 MG/DL (0.40-0.90); GLUCOSE 242 MG/DL (70-104); HEMATOCRIT 21.6 % (35.0-45.0); MAGNESIUM 2.1 MG/DL (1.5-2.4); POTASSIUM 4.5 MMOL/L (3.5-5.1); SODIUM 139 MMOL/L (135-145); TOTAL CARBON DIOXIDE 26.4 MMOL/L (24-32); WHITE BLOOD COUNT 33.6 X10'3 (4.5-11.0); eGFR 13 ML/MIN
[2021-08-12] MEDS: ipratropium/albuterol 3ml nebule NEB SCH ×6 (03:18→23:37)
--- NOTE | 2021-08-12 03:27 | NUR ---
Notified Dr. Payne of critical lab values from lab. Pt pain was acknowledge and orders were relieved and implemented. Addendum: 08/12/21 at 0340 by Marcelo Hall RN Notified Dr. Payne of critical lab values from lab. Pt pain was acknowledge and orders were received and implemented.
[2021-08-12 04:16] LABS: ANISOCYTOSIS 1+; NUCLEATED RED BLOOD CELLS 1 /100WBC (0-0); PLATELET ESTIMATE NORMAL; TOTAL CELLS COUNTED 100
[2021-08-12 04:17] LABS: BURR CELLS FEW; POLYCHROMASIA FEW
[2021-08-12] MEDS ORDERED: HYDROmorphone 1 mg/ml syringe IV ONE (04:40)
[2021-08-12] MEDS ORDERED: diphenhydrAMINE 25 MG/10 ML UD oral solution PO ONE (04:40)
[2021-08-12] MEDS: dexmedetomidine/D5W 100mL 100 ML IV SCH ×3 (05:04→21:47)
[2021-08-12] MEDS: amiodarone/D5 360MG/200ML BAG 200 ML IV SCH (05:05)
[2021-08-12] MEDS: NORepinephrine inj. 8 MG in normal saline 250ml IV soln 242 ML IV SCH (05:41)
[2021-08-12] MEDS: insulin regular, human U-100 3ml vial - multi-dose SQ SCH ×3 (05:56→21:10)
[2021-08-12] MEDS: heparin 10,000 units/1 ML INJ IV PRN (07:10)
[2021-08-12] MEDS: sodium chloride 3% for inhalation 4ml nebule IH SCH ×2 (07:23→20:07)
[2021-08-12] MEDS: pantoprazole 40MG/NS 100ML BAG 100 ML IV SCH (07:50)
[2021-08-12] MEDS: morphine 2 MG/ML inj. syringe IV PRN (07:50)
[2021-08-12] MEDS: midodrine 5mg tablet PO SCH ×3 (07:51→15:54)
[2021-08-12] MEDS: morphine/NS 1 mg/ml 50ml CADD 50 ML IV SCH ×8 (10:04→23:00)
[2021-08-12 13:31] LABS: C DIFF SPECIMEN=DIARRHEA? ACCEPTABLE; C DIFFICILE TOXINS A&B NEGATIVE (Neg)
[2021-08-12] MEDS ORDERED: NOREPINEPHRINE BITARTRATE/D5W 250 ML IV SCH (13:45)
[2021-08-12] MEDS: NORepinephrine 8mg/ 250ml NS 250 ML IV SCH (13:47)
[2021-08-12] MEDS: acetylcysteine 200 MG/ml 4ml vial INH SCH ×2 (14:00→20:07)
[2021-08-12] MEDS: LIDOcaine 5% patch TP SCH (14:37)
[2021-08-12] MEDS ORDERED: acetaminophen 325mg tablet PO PRN (16:15)
--- NOTE | 2021-08-12 17:52 | NUR ---
Pt. complained of bloating and discomfort. TF held @17:30 and will be reassessed in two hours.
--- NOTE | 2021-08-12 18:25 | NUR ---
Patient in room CICU 2011. I have received report from FAVIAN Mazariegos and had the opportunity to ask questions and assume patient care. Patient is awake and painful 10/10 "all over". Making good eye contact, answering questions by mouthing words. Assisted patient with finding INSOLE BOTTOM FILLER button, patient is able to press button with her thumb. barrel washer at bedside, assisted in evaluating INSOLE BOTTOM FILLER pump, Bolus dose of 0.5mg every 10 minutes PRN reprogramed. INSOLE BOTTOM FILLER now working correctly. Patient mouthing "I want to get up and go home." "I want to get out of here." Patient repositioned for comfort. Patient denies any abdominal discomfort at this time. Patient with history of restless legs and is constantly moving her legs. Patient heart rate normal sinus rate of 62, Blood pressure 124/55, Levophed is off. Patient has right upper arm PICC with medications infusing per MD order. see IV spread sheet for rates and medications.
[2021-08-12] MEDS: heparin 25,000 UNIT/250ml bag 250 ML IV SCH (18:54)
[2021-08-12] MEDS ORDERED: amiodarone 200mg tablet PO SCH (20:00)
[2021-08-12] MEDS ORDERED: acetaminophen 325mg/10.15ml oral unit dose solution NG PRN ×2 (20:48)
[2021-08-12] MEDS ORDERED: DEXTROSE 15 GM of carb/4 tabs (each vial/BOTTLE has 4 tablets) NG PRN ×2 (20:49→20:50)
[2021-08-12] MEDS ORDERED: amiodarone 200mg tablet NG ONE (20:59)
[2021-08-12] MEDS: gabapentin 300mg capsule NG SCH (21:01)
[2021-08-12] MEDS: insulin glargine (Lantus) pen - multi-dose SQ SCH (21:11)
--- NOTE | 2021-08-12 21:22 | NUR ---
Patient appears to be resting comfortably. verbal pain assessment patient states "2". Bed bath complete, patient used bedpan with small smear of formed pale colored stool. [employer] button in patients hand call light in reach.
[2021-08-13] VITALS (35 sets, daily range): BP systolic 55–147; BP diastolic 36–72
[2021-08-13] MEDS: morphine/NS 1 mg/ml 50ml CADD 50 ML IV SCH ×8 (01:00→19:38)
[2021-08-13 01:23] LABS: BASOPHILS % (AUTO) 0.2 % (0-1); EOSINOPHILS % (AUTO) 0.2 % (0-6); LYMPHOCYTES # (AUTO) 0.7 X10'3 (1.1-4.8); LYMPHOCYTES % (AUTO) 3.8 % (21-51); MEAN CORPUSCULAR HEMOGLOBIN 28.8 PG (27.0-31.0); MEAN CORPUSCULAR HGB CONC 33.3 g/dL (33.0-36.5); MEAN CORPUSCULAR VOLUME 86.4 FL (78-98); MEAN PLATELET VOLUME 8.8 FL (7.4-10.4); MONOCYTES # (AUTO) 1.3 X10'3 (0-0.9); MONOCYTES % (AUTO) 6.9 % (2-12); NEUTROPHILS # (AUTO) 17.2 X10'3 (1.8-7.7); NEUTROPHILS % (AUTO) 88.9 % (42-75); PLATELET COUNT 129 X10'3 (140-440); RED BLOOD COUNT 2.21 X10'6 (4.20-5.60); RED CELL DISTRIBUTION WIDTH 16.6 % (11.5-14.5); WHITE BLOOD COUNT 19.3 X10'3 (4.5-11.0)
[2021-08-13 01:33] LABS: HEMATOCRIT 19.1 % (35.0-45.0); HEMOGLOBIN 6.4 g/dl (12.0-16.0)
[2021-08-13] MEDS: dexmedetomidine/D5W 100mL 100 ML IV SCH ×6 (01:34→23:14)
--- NOTE | 2021-08-13 01:55 | NUR ---
Patient with critical H &H 6.[address] Villanueva called with critical. reviewed patients status, made MD aware that she is currently on Heparin drip. Per MD continue heparin as ordered. Telephone order to give 1 unit PRBC.
[2021-08-13] MEDS: metroNIDAZOLE-Flagyl 500mg/NS 100 ML IV SCH ×4 (02:11→23:08)
[2021-08-13 02:18] LABS: ALANINE AMINOTRANSFERASE 16 U/L (12-78); ALBUMIN 2.1 G/DL (3.4-5.0); ALBUMIN/GLOBULIN RATIO 0.7 (1.1-1.5); ALKALINE PHOSPHATASE 85 IU/L (46-116); ASPARTATE AMINO TRANSFERASE 9 U/L (10-37); BILIRUBIN,DIRECT 0.2 MG/DL (0-0.3); BILIRUBIN,TOTAL 0.6 MG/DL (0.1-1.0); MAGNESIUM 1.9 MG/DL (1.5-2.4); PREALBUMIN 13.8 MG/DL (19-36); TOTAL PROTEIN 5.2 G/DL (6.4-8.2)
[2021-08-13] MEDS: NORepinephrine 8mg/ 250ml NS 250 ML IV SCH (02:24)
[2021-08-13] MEDS: ipratropium/albuterol 3ml nebule NEB SCH ×6 (02:57→23:15)
[2021-08-13] MEDS: acetylcysteine 200 MG/ml 4ml vial INH SCH ×4 (02:58→19:20)
[2021-08-13] MEDS: heparin 10,000 units/1 ML INJ IV PRN (03:57)
[2021-08-13 04:00] LABS: CHLORIDE 98 MMOL/L (99-107); GLUCOSE 175 MG/DL (70-104); POTASSIUM 4.2 MMOL/L (3.5-5.1); SODIUM 136 MMOL/L (135-145); TOTAL CARBON DIOXIDE 22.7 MMOL/L (24-32)
[2021-08-13 04:01] LABS: ALANINE AMINOTRANSFERASE 15 U/L (12-78); ALBUMIN 2.1 G/DL (3.4-5.0); ALBUMIN/GLOBULIN RATIO 0.7 (1.1-1.5); ALKALINE PHOSPHATASE 85 IU/L (46-116); ANION GAP 15 (8-16); ASPARTATE AMINO TRANSFERASE 10 U/L (10-37); BILIRUBIN,TOTAL 0.6 MG/DL (0.1-1.0); BLOOD UREA NITROGEN 46 MG/DL (7-18); BUN/CREATININE RATIO 11.1 (6.6-38.0); CALCIUM 7.8 MG/DL (8.5-10.1); CREATININE 4.13 MG/DL (0.40-0.90); TOTAL PROTEIN 5.2 G/DL (6.4-8.2); eGFR 11 ML/MIN
[2021-08-13] MEDS: insulin regular, human U-100 3ml vial - multi-dose SQ SCH ×2 (04:05→22:18)
[2021-08-13] MEDS: CADD PCA waste documentation MC SCH ×2 (05:37→19:39)
--- NOTE | 2021-08-13 06:36 | NUR ---
Problems reprioritized. Patient report given, questions answered & plan of care reviewed with FAVIAN Harrell.
[2021-08-13] MEDS: heparin 25,000 UNIT/250ml bag 250 ML IV SCH (06:53)
[2021-08-13] MEDS: sodium chloride 3% for inhalation 4ml nebule IH SCH ×2 (07:19→19:21)
[2021-08-13] MEDS: midodrine 5mg tablet NG SCH ×3 (08:19→16:22)
[2021-08-13] MEDS: pantoprazole 40MG/NS 100ML BAG 100 ML IV SCH (08:19)
[2021-08-13] MEDS: amiodarone 200mg tablet NG SCH (08:19)
[2021-08-13] MEDS: gabapentin 300mg capsule NG SCH ×2 (08:19→13:00)
[2021-08-13] MEDS: LIDOcaine 5% patch TP SCH (08:28)
[2021-08-13] MEDS ORDERED: albuterol 2.5 MG/3 ML nebule NEB PRN (11:35)
[2021-08-13] MEDS ORDERED: proCHLORperazine 10mg tablet PO PRN (11:35)
[2021-08-13] MEDS ORDERED: baclofen 10mg tablet PO PRN (11:35)
[2021-08-13] MEDS ORDERED: zolpidem 5mg tablet PO PRN (11:35)
[2021-08-13] MEDS ORDERED: LORazepam 0.5 MG tablet PO PRN ×2 (11:35→12:05)
[2021-08-13] MEDS ORDERED: HYDROcodone/acetaminophen 5mg/325mg tablet PO PRN (11:35)
[2021-08-13] MEDS ORDERED: baclofen 10mg tablet NG PRN (16:03)
[2021-08-13] MEDS ORDERED: LORazepam 0.5 MG tablet NG PRN (16:04)
[2021-08-13] MEDS ORDERED: zolpidem 5mg tablet NG PRN (16:05)
[2021-08-13] MEDS ORDERED: proCHLORperazine 10mg tablet NG PRN (16:05)
[2021-08-13] MEDS ORDERED: ondansetron 4mg/5ml UD cup NG PRN (16:05)
[2021-08-13 17:10] LABS: FERRITIN 516 NG/ML (8-252)
[2021-08-13 17:27] LABS: % IRON SATURATION 12 % (11-46); IRON 16 UG/DL (49-151); TOTAL IRON BINDING CAPACITY 129 UG/DL (259-388)
[2021-08-13] MEDS: budesonide 0.5mg/2ml UD nebule IH SCH (19:20)
[2021-08-13] MEDS ORDERED: non-formulary drug (Ondansetron HCl 1 TAB) PO SCH (20:00)
[2021-08-13] MEDS: insulin glargine (Lantus) pen - multi-dose SQ SCH (22:19)
[2021-08-14] VITALS (39 sets, daily range): BP systolic 87–175; BP diastolic 47–80
[2021-08-14] MEDS: ipratropium/albuterol 3ml nebule NEB SCH ×6 (02:32→23:33)
[2021-08-14] MEDS: acetylcysteine 200 MG/ml 4ml vial INH SCH ×4 (02:32→19:29)
[2021-08-14] MEDS: dexmedetomidine/D5W 100mL 100 ML IV SCH ×3 (03:19→21:11)
[2021-08-14 04:13] LABS: BASOPHILS % (AUTO) 0.2 % (0-1); EOSINOPHILS % (AUTO) 0.3 % (0-6); LYMPHOCYTES # (AUTO) 0.4 X10'3 (1.1-4.8); LYMPHOCYTES % (AUTO) 2.5 % (21-51); MEAN CORPUSCULAR HEMOGLOBIN 28.5 PG (27.0-31.0); MEAN CORPUSCULAR HGB CONC 32.7 g/dL (33.0-36.5); MEAN CORPUSCULAR VOLUME 87.2 FL (78-98); MEAN PLATELET VOLUME 8.8 FL (7.4-10.4); MONOCYTES # (AUTO) 1.1 X10'3 (0-0.9); MONOCYTES % (AUTO) 6.7 % (2-12); NEUTROPHILS # (AUTO) 14.9 X10'3 (1.8-7.7); NEUTROPHILS % (AUTO) 90.3 % (42-75); PLATELET COUNT 112 X10'3 (140-440); RED BLOOD COUNT 2.22 X10'6 (4.20-5.60); RED CELL DISTRIBUTION WIDTH 16.9 % (11.5-14.5); WHITE BLOOD COUNT 16.5 X10'3 (4.5-11.0)
[2021-08-14 04:20] LABS: HEMATOCRIT 19.3 % (35.0-45.0); HEMOGLOBIN 6.3 g/dl (12.0-16.0)
[2021-08-14 04:32] LABS: ALANINE AMINOTRANSFERASE 14 U/L (12-78); ALBUMIN/GLOBULIN RATIO 0.6 (1.1-1.5); ALKALINE PHOSPHATASE 87 IU/L (46-116); ANION GAP 13 (8-16); ASPARTATE AMINO TRANSFERASE 11 U/L (10-37); BILIRUBIN,TOTAL 0.6 MG/DL (0.1-1.0); BLOOD UREA NITROGEN 57 MG/DL (7-18); BUN/CREATININE RATIO 11.6 (6.6-38.0); CALCIUM 8.1 MG/DL (8.5-10.1); CHLORIDE 96 MMOL/L (99-107); GLUCOSE 131 MG/DL (70-104); POTASSIUM 4.6 MMOL/L (3.5-5.1); SODIUM 133 MMOL/L (135-145); TOTAL CARBON DIOXIDE 23.6 MMOL/L (24-32); TOTAL PROTEIN 5.3 G/DL (6.4-8.2); eGFR 9 ML/MIN
--- NOTE | 2021-08-14 04:48 | NUR ---
Received critical H/H of 6.3/19.[address] Menchaca, order received to give 1 Unit of PRBC's and to recheck H/H two hours after the blood is completed. Will continue to monitor.
--- NOTE | 2021-08-14 06:21 | NUR ---
Problems reprioritized. Patient report given, questions answered & plan of care reviewed with Julio Cesar BALLESTEROS.
[2021-08-14] MEDS: morphine/NS 1 mg/ml 50ml CADD 50 ML IV SCH ×5 (07:00→15:00)
[2021-08-14] MEDS ORDERED: levoTHYROXINE 25mcg tablet NG SCH (07:00)
[2021-08-14] MEDS: sodium chloride 3% for inhalation 4ml nebule IH SCH ×2 (07:08→19:29)
[2021-08-14] MEDS: budesonide 0.5mg/2ml UD nebule IH SCH ×2 (07:08→19:28)
[2021-08-14] MEDS ORDERED: normal saline 1000ml 250 ML IV PRN (08:00)
[2021-08-14] MEDS ORDERED: EPOETIN ALFA-EPBX 20,000 UNIT/ML 1 ML MDV IV ONE (08:00)
[2021-08-14] MEDS ORDERED: heparin 1,000 units/ml 10ml inj HE ONE ×2 (08:00)
[2021-08-14] MEDS: LIDOcaine 5% patch TP SCH ×2 (08:00)
[2021-08-14] MEDS ORDERED: normal saline 1000ml 100 ML IV PRN (08:00)
[2021-08-14] MEDS ORDERED: allopurinol 300 MG tablet NG SCH ×2 (08:00→14:55)
[2021-08-14] MEDS ORDERED: losartan 50mg tablet NG SCH (08:00)
[2021-08-14] MEDS: amiodarone 200mg tablet NG SCH (08:40)
[2021-08-14] MEDS: atorvastatin 20mg tablet NG SCH (08:40)
[2021-08-14] MEDS: OLANZapine 2.5MG tablet NG SCH (08:41)
[2021-08-14] MEDS: midodrine 5mg tablet NG SCH ×3 (08:41→15:49)
[2021-08-14] MEDS: gabapentin 100mg capsule NG SCH (08:41)
[2021-08-14] MEDS: pantoprazole 40MG/NS 100ML BAG 100 ML IV SCH (08:42)
[2021-08-14] MEDS: metroNIDAZOLE-Flagyl 500mg/NS 100 ML IV SCH ×3 (08:42→23:02)
[2021-08-14 11:35] LABS: BASOPHILS # (AUTO) 0.1 X10'3 (0-0.2); BASOPHILS % (AUTO) 0.6 % (0-1); EOSINOPHILS % (AUTO) 0.3 % (0-6); LYMPHOCYTES # (AUTO) 0.4 X10'3 (1.1-4.8); LYMPHOCYTES % (AUTO) 2.8 % (21-51); MEAN CORPUSCULAR HEMOGLOBIN 28.3 PG (27.0-31.0); MEAN CORPUSCULAR HGB CONC 32.7 g/dL (33.0-36.5); MEAN CORPUSCULAR VOLUME 86.5 FL (78-98); MEAN PLATELET VOLUME 8.8 FL (7.4-10.4); MONOCYTES % (AUTO) 6.7 % (2-12); NEUTROPHILS # (AUTO) 13.3 X10'3 (1.8-7.7); NEUTROPHILS % (AUTO) 89.6 % (42-75); PLATELET COUNT 112 X10'3 (140-440); RED BLOOD COUNT 2.45 X10'6 (4.20-5.60); RED CELL DISTRIBUTION WIDTH 16.1 % (11.5-14.5); WHITE BLOOD COUNT 14.8 X10'3 (4.5-11.0)
[2021-08-14 11:38] LABS: HEMATOCRIT 21.2 % (35.0-45.0); HEMOGLOBIN 6.9 g/dl (12.0-16.0)
--- NOTE | 2021-08-14 13:24 | NUR ---
Reassessment: Pt is currently mechanically ventilated, tolerating TF at goal and GRV WNL per EMR. Per MD, "will consult Gen surgery to consider PEG tube placement especially in light of gastric sleeve surgery several years ago." Confirmed w/ pt's SO gastric sleeve surgery was 3-4 years ago. Pt is expected to receive dialysis today per MD at rounds. Pt seen by LABORATORY SPECIALIST 08/14, recommending NPO for now per EMR. LBM 08/13, currently not receiving routine bowel care. No changes to nutrition intervention at this time. Will continue to follow for TF tolerance and adjustment needs. 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 Addendum: 08/14/21 at [address] I have reviewed and agree with note by Dietetic Inter. Roxanne RD
[2021-08-14] MEDS ORDERED: apixaban 5mg tablet PO SCH (13:35)
[2021-08-14] MEDS: heparin, porcine 5000 units/ml vial SQ SCH (20:33)
[2021-08-14] MEDS: insulin regular, human U-100 3ml vial - multi-dose SQ SCH (20:39)
[2021-08-14] MEDS: insulin glargine (Lantus) pen - multi-dose SQ SCH (20:42)
--- NOTE | 2021-08-14 21:03 | NUR ---
The patients Michael called and was updated on the patients condition. Request made about the patients care and to pass on the message that he loved her and would see her in the morning. Will pass on to the patient and monitor.
[2021-08-15] VITALS (33 sets, daily range): BP systolic 70–143; BP diastolic 35–73
--- NOTE | 2021-08-15 00:10 | NUR ---
Called Dr Menchaca and informed her about the patients feeding tube displacement and concern, order received for STAT KUB to check for placement. Will not resume tube feeding until the results of the KUB. Will continue to monitor.
[2021-08-15] MEDS: morphine/NS 1 mg/ml 50ml CADD 50 ML IV SCH ×10 (01:00→22:58)
[2021-08-15] MEDS: dexmedetomidine/D5W 100mL 100 ML IV SCH ×3 (01:22→22:32)
[2021-08-15] MEDS: ipratropium/albuterol 3ml nebule NEB SCH ×6 (02:36→23:01)
[2021-08-15] MEDS: acetylcysteine 200 MG/ml 4ml vial INH SCH ×2 (02:36→07:17)
--- NOTE | 2021-08-15 02:54 | NUR ---
Talked with Dr Menchaca again and and order received to repeat KUB and get CXR. While waitiing for the KUB noted, feeding tube visible to mortgage loan underwriter as it was coming out of the patients mouth. KUB no longer needed as tube no longer close to the stomach. Radiology aware and KUB canceled. Tube completely removed at this time. Will continue to monitor and inform the doctor.
[2021-08-15 03:01] LABS: BASOPHILS % (AUTO) 0.3 % (0-1); EOSINOPHILS % (AUTO) 0.2 % (0-6); LYMPHOCYTES # (AUTO) 0.4 X10'3 (1.1-4.8); LYMPHOCYTES % (AUTO) 2.9 % (21-51); MEAN CORPUSCULAR HEMOGLOBIN 28.6 PG (27.0-31.0); MEAN CORPUSCULAR HGB CONC 33.4 g/dL (33.0-36.5); MEAN CORPUSCULAR VOLUME 85.6 FL (78-98); MEAN PLATELET VOLUME 8.5 FL (7.4-10.4); MONOCYTES % (AUTO) 7.7 % (2-12); NEUTROPHILS # (AUTO) 11.1 X10'3 (1.8-7.7); NEUTROPHILS % (AUTO) 88.9 % (42-75); PLATELET COUNT 111 X10'3 (140-440); RED BLOOD COUNT 2.41 X10'6 (4.20-5.60); RED CELL DISTRIBUTION WIDTH 15.9 % (11.5-14.5); WHITE BLOOD COUNT 12.5 X10'3 (4.5-11.0)
[2021-08-15 03:14] LABS: HEMATOCRIT 20.6 % (35.0-45.0); HEMOGLOBIN 6.9 g/dl (12.0-16.0)
[2021-08-15 03:17] LABS: ALANINE AMINOTRANSFERASE 14 U/L (12-78); ALBUMIN/GLOBULIN RATIO 0.6 (1.1-1.5); ALKALINE PHOSPHATASE 79 IU/L (46-116); ANION GAP 10 (8-16); ASPARTATE AMINO TRANSFERASE 12 U/L (10-37); BILIRUBIN,TOTAL 0.7 MG/DL (0.1-1.0); BLOOD UREA NITROGEN 41 MG/DL (7-18); BUN/CREATININE RATIO 12.2 (6.6-38.0); CALCIUM 8.1 MG/DL (8.5-10.1); CHLORIDE 98 MMOL/L (99-107); CREATININE 3.37 MG/DL (0.40-0.90); GLUCOSE 124 MG/DL (70-104); MAGNESIUM 1.7 MG/DL (1.5-2.4); PHOSPHORUS 3.6 MG/DL (2.3-4.5); SODIUM 135 MMOL/L (135-145); TOTAL CARBON DIOXIDE 27.3 MMOL/L (24-32); TOTAL PROTEIN 5.2 G/DL (6.4-8.2); eGFR 14 ML/MIN
--- NOTE | 2021-08-15 03:47 | NUR ---
Spoke with Dr Menchaca and informed her about the patients condition. No feeding tube in place at this time. Order received to have a new one inserted. H/H 6.9/20.6, no new orders. Discussed the results of the patients CXR, no new orders. Will continue to monitor the patient.
[2021-08-15] MEDS ORDERED: NORMAL SALINE IV ONE (06:15)
[2021-08-15] MEDS ORDERED: SODIUM FERRIC GLUC COMPLEX IV ONE (06:15)
--- NOTE | 2021-08-15 06:17 | NUR ---
Problems reprioritized. Patient report given, questions answered & plan of care reviewed with Julio Cesar BALLESTEROS.
--- NOTE | 2021-08-15 07:00 | NUR ---
Provided skin care to stoma site. Cleaned with normal saline and applied optifoam dressing. Site in clean and dry.
[2021-08-15] MEDS: sodium chloride 3% for inhalation 4ml nebule IH SCH ×2 (07:13→18:53)
[2021-08-15] MEDS: budesonide 0.5mg/2ml UD nebule IH SCH ×2 (07:13→18:53)
[2021-08-15] MEDS: sodium ferric gluc complex inj 125 MG in normal saline 100ml IV soln 100 ML IV SCH (07:53)
[2021-08-15] MEDS: LIDOcaine 5% patch TP SCH ×2 (08:00→09:28)
[2021-08-15] MEDS: OLANZapine 2.5MG tablet NG SCH (08:00)
[2021-08-15] MEDS: heparin, porcine 5000 units/ml vial SQ SCH ×2 (08:00→20:00)
[2021-08-15] MEDS: midodrine 5mg tablet NG SCH ×3 (08:00→16:00)
[2021-08-15] MEDS: gabapentin 100mg capsule NG SCH (08:00)
[2021-08-15] MEDS: atorvastatin 20mg tablet NG SCH (08:00)
[2021-08-15 08:02] LABS: RED BLOOD COUNT 2.49 X10'6 (4.20-5.60)
--- NOTE | 2021-08-15 08:04 | NUR ---
NG tube has been unintentionally discontinued. No feeding at this point. Addendum: 08/15/21 at 5702 by Julio Cesar Hall RN Amended: Links added.
--- NOTE | 2021-08-15 08:23 | NUR ---
NG tube discontinued by patient unintentionally. Addendum: 08/15/21 at 9758 by Julio Cesar Hall RN Amended: Links added.
--- NOTE | 2021-08-15 08:25 | NUR ---
No feeding tube at this time to document. discontinued by patient during the night Addendum: 08/15/21 at 8361 by Julio Cesar Hall RN Amended: Links added.
[2021-08-15] MEDS: pantoprazole 40MG/NS 100ML BAG 100 ML IV SCH (09:27)
[2021-08-15] MEDS: metroNIDAZOLE-Flagyl 500mg/NS 100 ML IV SCH (09:28)
[2021-08-15] MEDS ORDERED: amiodarone 450 MG in Dext 5% 250ml IV soln IV SCH (09:35)
[2021-08-15] MEDS: LEVOTHYROXINE SODIUM 100 MCG/5 ML injection IV SCH (10:25)
--- NOTE | 2021-08-15 11:45 | NUR ---
DM consult: Pt with T2DM, well controlled with A1c 6.3%, DM education not warranted at this time. Per EMR pt unintentionally pulled NGT. Pt to remain NPO, tentatively pending G-tube placement tomorrow (08/16) per . Addendum: 08/15/21 at [address] Amended: Links added.
[2021-08-15] MEDS ORDERED: NORepinephrine inj. 32 MG in normal saline 250ml IV soln 218 ML IV SCH (14:45)
[2021-08-15] MEDS ORDERED: NORepinephrine 8mg/ 250ml NS 250 ML IV ONE (15:08)
[2021-08-15] MEDS: allopurinol 100mg tablet NG SCH (15:21)
[2021-08-15] MEDS: insulin glargine (Lantus) pen - multi-dose SQ SCH (21:00)
--- NOTE | 2021-08-15 21:00 | NUR ---
Pt's heparin was not given due to abnormal lab values Hgb 6.9 Hct 20.6, Critically low BP of 70/35 (45) and G-tube procedure schedule for tomorrow. Eliquis is on hold per MD order. Pt is stable at this time will continue to monitor.
[2021-08-15] MEDS: amiodarone/D5 360MG/200ML BAG 200 ML IV SCH (23:30)
--- NOTE | 2021-08-15 23:48 | NUR ---
Pt converted to Afib RVR, amio was started. Will continue to monitor.
[2021-08-16] VITALS (50 sets, daily range): BP systolic 13–159; BP diastolic 30–94
[2021-08-16] MEDS: metroNIDAZOLE-Flagyl 500mg/NS 100 ML IV SCH ×4 (00:34→16:00)
[2021-08-16] MEDS: morphine/NS 1 mg/ml 50ml CADD 50 ML IV SCH ×12 (01:00→22:38)
[2021-08-16 02:25] LABS: BASOPHILS # (AUTO) 0.2 X10'3 (0-0.2); BASOPHILS % (AUTO) 1.2 % (0-1); EOSINOPHILS % (AUTO) 0.4 % (0-6); HEMATOCRIT 22.3 % (35.0-45.0); HEMOGLOBIN 7.2 g/dl (12.0-16.0); LYMPHOCYTES # (AUTO) 0.5 X10'3 (1.1-4.8); LYMPHOCYTES % (AUTO) 3.4 % (21-51); MEAN CORPUSCULAR HEMOGLOBIN 28.1 PG (27.0-31.0); MEAN CORPUSCULAR HGB CONC 32.2 g/dL (33.0-36.5); MEAN CORPUSCULAR VOLUME 87.2 FL (78-98); MEAN PLATELET VOLUME 8.7 FL (7.4-10.4); MONOCYTES # (AUTO) 1.1 X10'3 (0-0.9); MONOCYTES % (AUTO) 8.2 % (2-12); NEUTROPHILS # (AUTO) 11.4 X10'3 (1.8-7.7); NEUTROPHILS % (AUTO) 86.8 % (42-75); PLATELET COUNT 145 X10'3 (140-440); RED BLOOD COUNT 2.56 X10'6 (4.20-5.60); RED CELL DISTRIBUTION WIDTH 16.9 % (11.5-14.5); WHITE BLOOD COUNT 13.2 X10'3 (4.5-11.0)
[2021-08-16 02:40] LABS: ALANINE AMINOTRANSFERASE 16 U/L (12-78); ALBUMIN 1.9 G/DL (3.4-5.0); ALBUMIN/GLOBULIN RATIO 0.6 (1.1-1.5); ALKALINE PHOSPHATASE 75 IU/L (46-116); ANION GAP 17 (8-16); ASPARTATE AMINO TRANSFERASE 20 U/L (10-37); BILIRUBIN,TOTAL 0.8 MG/DL (0.1-1.0); BLOOD UREA NITROGEN 52 MG/DL (7-18); BUN/CREATININE RATIO 11.8 (6.6-38.0); CALCIUM 8.4 MG/DL (8.5-10.1); CHLORIDE 96 MMOL/L (99-107); CREATININE 4.42 MG/DL (0.40-0.90); GLUCOSE 139 MG/DL (70-104); MAGNESIUM 1.7 MG/DL (1.5-2.4); PHOSPHORUS 4.9 MG/DL (2.3-4.5); PREALBUMIN 12.2 MG/DL (19-36); SODIUM 134 MMOL/L (135-145); TOTAL CARBON DIOXIDE 20.6 MMOL/L (24-32); TOTAL PROTEIN 5.3 G/DL (6.4-8.2); eGFR 10 ML/MIN
[2021-08-16 02:41] LABS: POTASSIUM 4.5 MMOL/L (3.5-5.1)
[2021-08-16] MEDS: ipratropium/albuterol 3ml nebule NEB SCH ×6 (03:04→23:09)
--- NOTE | 2021-08-16 03:33 | NUR ---
Pt converted back to sinus rhythm with a HR of 94. Pt is stable at this time will continue to monitor.
[2021-08-16] MEDS ORDERED: magnesium 2GM in 50ml NS 50 ML IV ONE (04:35)
[2021-08-16] MEDS: dexmedetomidine/D5W 100mL 100 ML IV SCH ×2 (04:55→11:43)
[2021-08-16] MEDS: amiodarone/D5 360MG/200ML BAG 200 ML IV SCH ×5 (06:01→21:35)
[2021-08-16] MEDS: budesonide 0.5mg/2ml UD nebule IH SCH ×2 (07:04→19:47)
[2021-08-16] MEDS: sodium chloride 3% for inhalation 4ml nebule IH SCH ×2 (07:15→19:48)
[2021-08-16] MEDS: gabapentin 100mg capsule NG SCH (07:53)
[2021-08-16] MEDS: OLANZapine 2.5MG tablet NG SCH (07:53)
[2021-08-16] MEDS: atorvastatin 20mg tablet NG SCH (07:53)
[2021-08-16] MEDS: midodrine 5mg tablet NG SCH ×3 (07:53→16:00)
[2021-08-16] MEDS: allopurinol 100mg tablet NG SCH (07:53)
[2021-08-16] MEDS: heparin, porcine 5000 units/ml vial SQ SCH ×2 (08:00→21:28)
[2021-08-16] MEDS: LIDOcaine 5% patch TP SCH ×2 (08:09→08:46)
[2021-08-16] MEDS: LEVOTHYROXINE SODIUM 100 MCG/5 ML injection IV SCH (08:09)
[2021-08-16] MEDS: pantoprazole 40MG/NS 100ML BAG 100 ML IV SCH (08:09)
[2021-08-16] MEDS: sodium ferric gluc complex inj 125 MG in normal saline 100ml IV soln 100 ML IV SCH (08:47)
[2021-08-16] MEDS ORDERED: EPOETIN ALFA-EPBX 20,000 UNIT/ML 1 ML MDV IV ONE (08:50)
[2021-08-16] MEDS ORDERED: normal saline 1000ml 100 ML IV PRN (08:50)
[2021-08-16] MEDS ORDERED: normal saline 1000ml 250 ML IV PRN (08:50)
[2021-08-16] MEDS ORDERED: heparin 1,000 units/ml 10ml inj HE ONE ×2 (08:55)
--- NOTE | 2021-08-16 12:43 | NUR ---
Arrived on unit to assess trach site. Dressing changed and noted some old drainage on the foam. No odor noted. Pt is sitting up in bed and was educated to spend time rotating from side to side to prevent breakdown of her skin. Report to nurse covering for primary nurse re dressing change 2 x shift. Addendum: 08/16/21 at 1247 by Liliana Jane RN Amended: Links added.
--- NOTE | 2021-08-16 16:00 | NUR ---
Pt off unit to OR.
[2021-08-16] MEDS ORDERED: sevoflurane 250ml liquid IH ONE (16:21)
[2021-08-16] MEDS ORDERED: rocuronium 10mg/ml inj IV ONE ×2 (16:21→16:30)
[2021-08-16] MEDS ORDERED: LIDOcaine 1% (10mg/ml)w/preservative inj. 20ml MDV ONE ×2 (16:37→16:47)
[2021-08-16] MEDS ORDERED: BUPIVAcaine 0.5% inj/PF 30 ML ONE (16:37)
[2021-08-16] MEDS ORDERED: BUPIVAcaine 0.5% inj/PF 30 ml vial IJ ONE (17:51)
--- NOTE | 2021-08-16 18:15 | NUR ---
Patient in room CICU 2011. I have received report from Julio Cesar BALLESTEROS with Mac RN and had the opportunity to ask questions and assume patient care.
--- NOTE | 2021-08-16 18:30 | NUR ---
Pt went to procedure and needed line replaced resulting in missed and unadministered medications from the previous shift.
[2021-08-16] MEDS: insulin glargine (Lantus) pen - multi-dose SQ SCH (21:00)
[2021-08-17] VITALS (38 sets, daily range): BP systolic 86–153; BP diastolic 38–80
[2021-08-17] MEDS: metroNIDAZOLE-Flagyl 500mg/NS 100 ML IV SCH ×3 (00:36→18:38)
[2021-08-17] MEDS: morphine/NS 1 mg/ml 50ml CADD 50 ML IV SCH ×12 (01:00→23:00)
--- NOTE | 2021-08-17 01:00 | NUR ---
renzo placed, 12fr at 61cm, patient tolerated well. renzo auscultated and KUB ordered to verify placement.
[2021-08-17] MEDS: dexmedetomidine/D5W 100mL 100 ML IV SCH ×2 (01:35→08:48)
[2021-08-17 02:07] LABS: BASOPHILS % (AUTO) 0.5 % (0-1); EOSINOPHILS # (AUTO) 0.1 X10'3 (0-0.9); EOSINOPHILS % (AUTO) 0.6 % (0-6); HEMATOCRIT 22.6 % (35.0-45.0); HEMOGLOBIN 7.5 g/dl (12.0-16.0); LYMPHOCYTES # (AUTO) 0.4 X10'3 (1.1-4.8); LYMPHOCYTES % (AUTO) 4.5 % (21-51); MEAN CORPUSCULAR HEMOGLOBIN 28.6 PG (27.0-31.0); MEAN CORPUSCULAR VOLUME 86.7 FL (78-98); MEAN PLATELET VOLUME 8.1 FL (7.4-10.4); MONOCYTES # (AUTO) 0.9 X10'3 (0-0.9); MONOCYTES % (AUTO) 9.2 % (2-12); NEUTROPHILS # (AUTO) 8.3 X10'3 (1.8-7.7); NEUTROPHILS % (AUTO) 85.2 % (42-75); PLATELET COUNT 150 X10'3 (140-440); RED BLOOD COUNT 2.61 X10'6 (4.20-5.60); RED CELL DISTRIBUTION WIDTH 17.6 % (11.5-14.5); WHITE BLOOD COUNT 9.7 X10'3 (4.5-11.0)
[2021-08-17] MEDS: CADD PCA waste documentation MC SCH ×2 (02:16→10:10)
[2021-08-17 02:26] LABS: ALANINE AMINOTRANSFERASE 15 U/L (12-78); ALBUMIN 2.1 G/DL (3.4-5.0); ALBUMIN/GLOBULIN RATIO 0.6 (1.1-1.5); ALKALINE PHOSPHATASE 74 IU/L (46-116); ANION GAP 14 (8-16); ASPARTATE AMINO TRANSFERASE 12 U/L (10-37); BILIRUBIN,TOTAL 0.9 MG/DL (0.1-1.0); BLOOD UREA NITROGEN 32 MG/DL (7-18); BUN/CREATININE RATIO 10.3 (6.6-38.0); CALCIUM 8.2 MG/DL (8.5-10.1); CHLORIDE 98 MMOL/L (99-107); CREATININE 3.11 MG/DL (0.40-0.90); GLUCOSE 159 MG/DL (70-104); MAGNESIUM 1.9 MG/DL (1.5-2.4); POTASSIUM 4.1 MMOL/L (3.5-5.1); SODIUM 135 MMOL/L (135-145); TOTAL CARBON DIOXIDE 23.2 MMOL/L (24-32); TOTAL PROTEIN 5.5 G/DL (6.4-8.2); eGFR 15 ML/MIN
[2021-08-17] MEDS: amiodarone/D5 360MG/200ML BAG 200 ML IV SCH ×5 (02:49→21:35)
[2021-08-17] MEDS: ipratropium/albuterol 3ml nebule NEB SCH ×6 (03:22→22:53)
[2021-08-17] MEDS: NORepinephrine 8mg/ 250ml NS 250 ML IV SCH ×2 (03:43→15:14)
--- NOTE | 2021-08-17 05:00 | NUR ---
per Dr yves muller placement was verified and is able to be used but will be keeping the patient NPO for 24hrs due to gas buildup and abdominal distention.
[2021-08-17] MEDS: budesonide 0.5mg/2ml UD nebule IH SCH ×2 (07:15→19:11)
[2021-08-17] MEDS: sodium chloride 3% for inhalation 4ml nebule IH SCH ×2 (07:20→19:12)
[2021-08-17] MEDS: heparin, porcine 5000 units/ml vial SQ SCH ×2 (08:43→20:38)
[2021-08-17] MEDS: OLANZapine 2.5MG tablet NG SCH (08:44)
[2021-08-17] MEDS: pantoprazole 40MG/NS 100ML BAG 100 ML IV SCH (08:44)
[2021-08-17] MEDS: allopurinol 100mg tablet NG SCH (08:44)
[2021-08-17] MEDS: gabapentin 100mg capsule NG SCH (08:44)
[2021-08-17] MEDS: atorvastatin 20mg tablet NG SCH (08:44)
[2021-08-17] MEDS: LEVOTHYROXINE SODIUM 100 MCG/5 ML injection IV SCH (08:45)
[2021-08-17] MEDS: midodrine 5mg tablet NG SCH ×3 (08:47→17:05)
[2021-08-17] MEDS: sodium ferric gluc complex inj 125 MG in normal saline 100ml IV soln 100 ML IV SCH (09:51)
--- NOTE | 2021-08-17 13:51 | NUR ---
Reassessment: Pt remains intubated with trach. Per EMR G-tube placement was unsuccessful. MD reports will inquire about J-tube placement with surgeon. A Corpak has been placed and pt to start trickle TF at 10 mL/hr per MD at critical care rounds. LBM 08/13. Per KUB report pt with dilated small bowel loops suspicious for SBO versus ileus. Pt with no nutrition for roughly two days. Hopeful that initiation of nutrition will assist with bowel regularity. Pt s/p HD 08/16 with 3 L fluid removed per EMR. Will continue to follow and make recommendations as appropriate. 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
[2021-08-17] MEDS: ESCITALOPRAM OXALATE 5 MG TABLET NG SCH (16:32)
[2021-08-17] MEDS: piperacillin/tazo 3.375gm/50ml 50 ML IV SCH (18:33)
--- NOTE | 2021-08-17 18:35 | NUR ---
Patient in room CICU 2011. I have received report from Ginger BALLESTEROS with MAC RN and had the opportunity to ask questions and assume patient care.
--- NOTE | 2021-08-17 20:30 | NUR ---
Pt respiratory rate 6 on spontaneous and patient slow to respond to verbal and physical stimulation. Vent put back on backup PRVC setting. RT at bedside.
[2021-08-17] MEDS: insulin glargine (Lantus) pen - multi-dose SQ SCH (21:00)
--- NOTE | 2021-08-17 21:15 | NUR ---
Bladder scanned pt. 361 ml in bladder
[2021-08-18] VITALS (34 sets, daily range): BP systolic 87–163; BP diastolic 46–76
[2021-08-18] MEDS: piperacillin/tazo 3.375gm/50ml 50 ML IV SCH ×2 (00:06→09:48)
[2021-08-18] MEDS: dexmedetomidine/D5W 100mL 100 ML IV SCH ×4 (00:06→20:14)
[2021-08-18] MEDS: morphine/NS 1 mg/ml 50ml CADD 50 ML IV SCH ×12 (01:00→23:00)
[2021-08-18] MEDS: amiodarone/D5 360MG/200ML BAG 200 ML IV SCH ×4 (01:31→21:35)
[2021-08-18] MEDS: metroNIDAZOLE-Flagyl 500mg/NS 100 ML IV SCH ×3 (01:32→16:53)
[2021-08-18] MEDS: insulin regular, human U-100 3ml vial - multi-dose SQ SCH (01:57)
[2021-08-18 02:49] LABS: BASOPHILS % (AUTO) 0.4 % (0-1); EOSINOPHILS # (AUTO) 0.1 X10'3 (0-0.9); EOSINOPHILS % (AUTO) 0.6 % (0-6); HEMATOCRIT 23.3 % (35.0-45.0); HEMOGLOBIN 7.5 g/dl (12.0-16.0); LYMPHOCYTES # (AUTO) 0.3 X10'3 (1.1-4.8); LYMPHOCYTES % (AUTO) 2.8 % (21-51); MEAN CORPUSCULAR HEMOGLOBIN 28.4 PG (27.0-31.0); MEAN CORPUSCULAR HGB CONC 32.4 g/dL (33.0-36.5); MEAN CORPUSCULAR VOLUME 87.6 FL (78-98); MEAN PLATELET VOLUME 7.9 FL (7.4-10.4); MONOCYTES # (AUTO) 0.9 X10'3 (0-0.9); MONOCYTES % (AUTO) 7.8 % (2-12); NEUTROPHILS # (AUTO) 10.3 X10'3 (1.8-7.7); NEUTROPHILS % (AUTO) 88.4 % (42-75); PLATELET COUNT 151 X10'3 (140-440); RED BLOOD COUNT 2.66 X10'6 (4.20-5.60); RED CELL DISTRIBUTION WIDTH 17.5 % (11.5-14.5); WHITE BLOOD COUNT 11.6 X10'3 (4.5-11.0)
[2021-08-18 03:06] LABS: ALANINE AMINOTRANSFERASE 12 U/L (12-78); ALBUMIN/GLOBULIN RATIO 0.6 (1.1-1.5); ALKALINE PHOSPHATASE 69 IU/L (46-116); ANION GAP 15 (8-16); ASPARTATE AMINO TRANSFERASE 6 U/L (10-37); BILIRUBIN,TOTAL 0.8 MG/DL (0.1-1.0); BLOOD UREA NITROGEN 37 MG/DL (7-18); BUN/CREATININE RATIO 9.1 (6.6-38.0); CALCIUM 8.3 MG/DL (8.5-10.1); CHLORIDE 97 MMOL/L (99-107); CREATININE 4.06 MG/DL (0.40-0.90); GLUCOSE 193 MG/DL (70-104); MAGNESIUM 1.8 MG/DL (1.5-2.4); PHOSPHORUS 4.5 MG/DL (2.3-4.5); POTASSIUM 4.1 MMOL/L (3.5-5.1); SODIUM 135 MMOL/L (135-145); TOTAL CARBON DIOXIDE 23.3 MMOL/L (24-32); TOTAL PROTEIN 5.4 G/DL (6.4-8.2); eGFR 11 ML/MIN
[2021-08-18] MEDS: ipratropium/albuterol 3ml nebule NEB SCH ×6 (03:15→22:51)
[2021-08-18] MEDS: NORepinephrine 8mg/ 250ml NS 250 ML IV SCH ×2 (03:28→08:01)
--- NOTE | 2021-08-18 06:00 | NUR ---
Patient in room CICU 2011. I have received report from Zainab BALLESTEROS and had the opportunity to ask questions and assume patient care.
--- NOTE | 2021-08-18 06:15 | NUR ---
Problems reprioritized. Patient report given to lynette RN with MAc RN, questions answered & plan of care reviewed with .
[2021-08-18] MEDS: budesonide 0.5mg/2ml UD nebule IH SCH ×2 (06:57→19:05)
[2021-08-18] MEDS: sodium chloride 3% for inhalation 4ml nebule IH SCH ×2 (06:58→19:05)
[2021-08-18] MEDS: pantoprazole 40MG/NS 100ML BAG 100 ML IV SCH (08:00)
[2021-08-18] MEDS ORDERED: albumin (human) 25% 100ml IV 100 ML IV PRN (08:45)
[2021-08-18] MEDS ORDERED: EPOETIN ALFA-EPBX 20,000 UNIT/ML 1 ML MDV IV ONE (08:45)
[2021-08-18] MEDS ORDERED: heparin 1,000 units/ml 10ml inj HE ONE ×2 (08:50)
[2021-08-18] MEDS: atorvastatin 20mg tablet NG SCH (09:51)
[2021-08-18] MEDS: ESCITALOPRAM OXALATE 5 MG TABLET NG SCH (09:51)
[2021-08-18] MEDS: levoTHYROXINE 25mcg tablet NG SCH (09:51)
[2021-08-18] MEDS: allopurinol 100mg tablet NG SCH (09:52)
[2021-08-18] MEDS: midodrine 5mg tablet NG SCH (09:52)
[2021-08-18] MEDS: gabapentin 100mg capsule NG SCH (09:53)
[2021-08-18] MEDS: LIDOcaine 5% patch TP SCH (10:01)
[2021-08-18] MEDS: heparin, porcine 5000 units/ml vial SQ SCH ×2 (10:13→20:12)
[2021-08-18] MEDS: CADD PCA waste documentation MC SCH (10:42)
[2021-08-18] MEDS: sodium ferric gluc complex inj 125 MG in normal saline 100ml IV soln 100 ML IV SCH (11:35)
[2021-08-18] MEDS: midodrine tablet 2.5 MG TABLET NG SCH (13:08)
[2021-08-18] MEDS ORDERED: albumin (Human) 5% 250ml 250 ML IV ONE (17:20)
--- NOTE | 2021-08-18 18:10 | NUR ---
Patient in room CICU 2011. I have received report from Magui BALLESTEROS with MAC RN and had the opportunity to ask questions and assume patient care.
--- NOTE | 2021-08-18 18:37 | NUR ---
Problems reprioritized. Patient report given, questions answered & plan of care reviewed with Zainab RN and Shaheen RN.
[2021-08-18] MEDS: insulin glargine (Lantus) pen - multi-dose SQ SCH (21:00)
[2021-08-19] VITALS (31 sets, daily range): BP systolic 91–196; BP diastolic 45–114
[2021-08-19] MEDS: morphine/NS 1 mg/ml 50ml CADD 50 ML IV SCH ×12 (01:00→23:09)
[2021-08-19] MEDS: metroNIDAZOLE-Flagyl 500mg/NS 100 ML IV SCH ×3 (01:06→15:34)
[2021-08-19] MEDS: amiodarone/D5 360MG/200ML BAG 200 ML IV SCH ×4 (01:06→21:35)
[2021-08-19 02:15] LABS: BASOPHILS % (AUTO) 0.3 % (0-1); EOSINOPHILS # (AUTO) 0.1 X10'3 (0-0.9); EOSINOPHILS % (AUTO) 0.9 % (0-6); LYMPHOCYTES # (AUTO) 0.3 X10'3 (1.1-4.8); LYMPHOCYTES % (AUTO) 2.9 % (21-51); MEAN CORPUSCULAR HEMOGLOBIN 28.5 PG (27.0-31.0); MEAN CORPUSCULAR HGB CONC 32.9 g/dL (33.0-36.5); MEAN CORPUSCULAR VOLUME 86.6 FL (78-98); MEAN PLATELET VOLUME 8.1 FL (7.4-10.4); MONOCYTES # (AUTO) 0.5 X10'3 (0-0.9); MONOCYTES % (AUTO) 5.2 % (2-12); NEUTROPHILS # (AUTO) 8.6 X10'3 (1.8-7.7); NEUTROPHILS % (AUTO) 90.7 % (42-75); PLATELET COUNT 133 X10'3 (140-440); RED BLOOD COUNT 2.47 X10'6 (4.20-5.60); RED CELL DISTRIBUTION WIDTH 17.8 % (11.5-14.5); WHITE BLOOD COUNT 9.5 X10'3 (4.5-11.0)
[2021-08-19 02:28] LABS: HEMATOCRIT 21.4 % (35.0-45.0)
[2021-08-19 02:33] LABS: ALANINE AMINOTRANSFERASE 11 U/L (12-78); ALBUMIN 2.3 G/DL (3.4-5.0); ALBUMIN/GLOBULIN RATIO 0.8 (1.1-1.5); ALKALINE PHOSPHATASE 61 IU/L (46-116); ANION GAP 14 (8-16); ASPARTATE AMINO TRANSFERASE 9 U/L (10-37); BILIRUBIN,TOTAL 0.8 MG/DL (0.1-1.0); BLOOD UREA NITROGEN 23 MG/DL (7-18); BUN/CREATININE RATIO 7.8 (6.6-38.0); CALCIUM 8.3 MG/DL (8.5-10.1); CHLORIDE 98 MMOL/L (99-107); CREATININE 2.96 MG/DL (0.40-0.90); GLUCOSE 155 MG/DL (70-104); MAGNESIUM 1.7 MG/DL (1.5-2.4); PHOSPHORUS 3.2 MG/DL (2.3-4.5); POTASSIUM 3.6 MMOL/L (3.5-5.1); SODIUM 136 MMOL/L (135-145); TOTAL CARBON DIOXIDE 24.2 MMOL/L (24-32); TOTAL PROTEIN 5.3 G/DL (6.4-8.2); eGFR 16 ML/MIN
--- NOTE | 2021-08-19 03:30 | NUR ---
Called Dr. Menchaca regarding critical H&H. No new orders.
[2021-08-19] MEDS: ipratropium/albuterol 3ml nebule NEB SCH ×6 (03:53→23:16)
[2021-08-19] MEDS: NORepinephrine 8mg/ 250ml NS 250 ML IV SCH ×2 (03:56→16:10)
[2021-08-19] MEDS: dexmedetomidine/D5W 100mL 100 ML IV SCH ×3 (04:56→20:15)
--- NOTE | 2021-08-19 06:00 | NUR ---
Patient in room CICU 2011. I have received report from Zainab RN and Shaheen RN and had the opportunity to ask questions and assume patient care.
[2021-08-19] MEDS: sodium chloride 3% for inhalation 4ml nebule IH SCH ×2 (07:20→19:31)
[2021-08-19] MEDS: heparin, porcine 5000 units/ml vial SQ SCH ×2 (08:00→08:47)
[2021-08-19] MEDS: sodium ferric gluc complex inj 125 MG in normal saline 100ml IV soln 100 ML IV SCH (08:20)
[2021-08-19] MEDS: allopurinol 100mg tablet NG SCH (08:21)
[2021-08-19] MEDS: lansoprazole 15mg solutab NG SCH (08:21)
[2021-08-19] MEDS: atorvastatin 20mg tablet NG SCH (08:21)
[2021-08-19] MEDS: ESCITALOPRAM OXALATE 5 MG TABLET NG SCH (08:21)
[2021-08-19] MEDS: gabapentin 100mg capsule NG SCH (08:21)
[2021-08-19] MEDS: midodrine tablet 2.5 MG TABLET NG SCH ×3 (08:21→15:34)
[2021-08-19] MEDS: LIDOcaine 5% patch TP SCH (08:22)
--- NOTE | 2021-08-19 08:30 | NUR ---
Dr. Longoria informed that pt has been passing gas throughout the night, MD cancelled small bowel follow through and ordered to restart tube feed. MD aware of H&H 12/06.4. No transfusion orders. Informed pt has been in and out of afib on noc shift and this AM. MD ordered to increase Amio drip to 1mg and to give 150mg bolus.
[2021-08-19] MEDS: piperacillin/tazo 3.375gm/50ml 50 ML IV SCH ×2 (08:41→20:06)
[2021-08-19] MEDS: levoTHYROXINE 25mcg tablet NG SCH (08:42)
[2021-08-19] MEDS: budesonide 0.5mg/2ml UD nebule IH SCH ×2 (08:53→19:31)
[2021-08-19] MEDS ORDERED: amiodarone 150mg/dext, iso-os 100 ML IV ONE (09:05)
[2021-08-19] MEDS: CADD PCA waste documentation MC SCH (14:06)
--- NOTE | 2021-08-19 18:27 | NUR ---
Problems reprioritized. Patient report given, questions answered & plan of care reviewed with Chuck BALLESTEROS.
[2021-08-19] MEDS: insulin glargine (Lantus) pen - multi-dose SQ SCH (19:57)
[2021-08-19] MEDS: apixaban 5mg tablet PO SCH (20:06)
[2021-08-20] VITALS (33 sets, daily range): BP systolic 64–173; BP diastolic 29–99
[2021-08-20] MEDS: metroNIDAZOLE-Flagyl 500mg/NS 100 ML IV SCH ×2 (00:12→07:33)
[2021-08-20] MEDS: morphine/NS 1 mg/ml 50ml CADD 50 ML IV SCH ×8 (01:00→19:45)
[2021-08-20] MEDS: insulin regular, human U-100 3ml vial - multi-dose SQ SCH ×4 (02:25→21:23)
[2021-08-20] MEDS: magnesium hydroxide 30ml (MOM) UD suspension NG PRN ×2 (02:31→09:23)
[2021-08-20 02:55] LABS: BASOPHILS # (AUTO) 0.1 X10'3 (0-0.2); BASOPHILS % (AUTO) 0.4 % (0-1); EOSINOPHILS # (AUTO) 0.1 X10'3 (0-0.9); EOSINOPHILS % (AUTO) 0.5 % (0-6); HEMATOCRIT 22.4 % (35.0-45.0); HEMOGLOBIN 7.2 g/dl (12.0-16.0); LYMPHOCYTES # (AUTO) 0.4 X10'3 (1.1-4.8); LYMPHOCYTES % (AUTO) 2.7 % (21-51); MEAN CORPUSCULAR HGB CONC 32.2 g/dL (33.0-36.5); MEAN CORPUSCULAR VOLUME 86.8 FL (78-98); MEAN PLATELET VOLUME 8.3 FL (7.4-10.4); MONOCYTES # (AUTO) 0.7 X10'3 (0-0.9); MONOCYTES % (AUTO) 4.8 % (2-12); NEUTROPHILS # (AUTO) 12.8 X10'3 (1.8-7.7); NEUTROPHILS % (AUTO) 91.6 % (42-75); PLATELET COUNT 184 X10'3 (140-440); RED BLOOD COUNT 2.58 X10'6 (4.20-5.60); RED CELL DISTRIBUTION WIDTH 17.9 % (11.5-14.5); WHITE BLOOD COUNT 13.9 X10'3 (4.5-11.0)
[2021-08-20 03:09] LABS: ALANINE AMINOTRANSFERASE 12 U/L (12-78); ALBUMIN 2.3 G/DL (3.4-5.0); ALBUMIN/GLOBULIN RATIO 0.7 (1.1-1.5); ALKALINE PHOSPHATASE 69 IU/L (46-116); ANION GAP 13 (8-16); ASPARTATE AMINO TRANSFERASE 10 U/L (10-37); BILIRUBIN,TOTAL 0.7 MG/DL (0.1-1.0); BLOOD UREA NITROGEN 31 MG/DL (7-18); CALCIUM 8.4 MG/DL (8.5-10.1); CHLORIDE 97 MMOL/L (99-107); CREATININE 3.89 MG/DL (0.40-0.90); GLUCOSE 236 MG/DL (70-104); MAGNESIUM 1.9 MG/DL (1.5-2.4); PHOSPHORUS 3.1 MG/DL (2.3-4.5); POTASSIUM 3.7 MMOL/L (3.5-5.1); PREALBUMIN 9.8 MG/DL (19-36); SODIUM 134 MMOL/L (135-145); TOTAL CARBON DIOXIDE 24.5 MMOL/L (24-32); TOTAL PROTEIN 5.6 G/DL (6.4-8.2); eGFR 12 ML/MIN
[2021-08-20] MEDS: amiodarone/D5 360MG/200ML BAG 200 ML IV SCH ×4 (03:20→21:11)
[2021-08-20] MEDS: ipratropium/albuterol 3ml nebule NEB SCH ×4 (03:47→15:34)
[2021-08-20] MEDS: NORepinephrine 8mg/ 250ml NS 250 ML IV SCH ×2 (04:24→23:48)
--- NOTE | 2021-08-20 04:47 | NUR ---
Morning rounds with Dr. Hinkle. Pt's main complaint at this time is bowel discomfort. very distended, no BM and very little gas and her abd xray on 08/17 already looked very uncomfortable. MD aware I turned TF down. She ordered another abd xray, will add bowel regiment after looking at it.
[2021-08-20] MEDS: dexmedetomidine/D5W 100mL 100 ML IV SCH ×2 (05:34→21:11)
[2021-08-20] MEDS: sodium chloride 3% for inhalation 4ml nebule IH SCH (06:57)
[2021-08-20] MEDS: budesonide 0.5mg/2ml UD nebule IH SCH (06:57)
[2021-08-20] MEDS: piperacillin/tazo 3.375gm/50ml 50 ML IV SCH ×2 (07:33→19:06)
[2021-08-20] MEDS: midodrine tablet 2.5 MG TABLET NG SCH ×3 (07:35→16:00)
[2021-08-20] MEDS: allopurinol 100mg tablet NG SCH (07:35)
[2021-08-20] MEDS: ESCITALOPRAM OXALATE 5 MG TABLET NG SCH (07:35)
[2021-08-20] MEDS: atorvastatin 20mg tablet NG SCH (07:35)
[2021-08-20] MEDS: levoTHYROXINE 25mcg tablet NG SCH (07:35)
[2021-08-20] MEDS: gabapentin 100mg capsule NG SCH (07:35)
[2021-08-20] MEDS: lansoprazole 15mg solutab NG SCH (07:35)
[2021-08-20] MEDS: apixaban 5mg tablet PO SCH ×2 (07:36→19:05)
[2021-08-20] MEDS: LIDOcaine 5% patch TP SCH (07:36)
[2021-08-20] MEDS ORDERED: albumin (human) 25% 100ml IV 100 ML IV PRN (08:00)
[2021-08-20] MEDS ORDERED: heparin 1,000 units/ml 10ml inj HE ONE ×3 (08:00→16:10)
[2021-08-20] MEDS ORDERED: EPOETIN ALFA-EPBX 20,000 UNIT/ML 1 ML MDV IV ONE (08:00)
[2021-08-20] MEDS ORDERED: mineral oil 133ml enema RC ONE (11:35)
[2021-08-20] MEDS ORDERED: lactulose 20gm/30ml cup NG ONE (11:35)
--- NOTE | 2021-08-20 12:05 | NUR ---
Tate Consult: Pt w/ skin intact besides trach site per EMR. Pt TF at 30ml/hr this AM though 10-30ml/hr fluctuating vs held past 6 days not meeting needs nutrition needs; sap enterprise portal consultant agreeable to advance EN and stop GRV checks as GRV 0ml and corpak in second portion of duodenum per imaging. Addendum: 08/20/21 at [address] Amended: Links added.
--- NOTE | 2021-08-20 13:11 | NUR ---
PRESSURE ULCER EDUCATION: DEFINITION: A pressure ulcer is an area of skin that breaks down when you stay in one position too long. The constant pressure against the skin reduces the blood flow to that area and the affected tissue dies. CAUSES: "Being bedridden or in a wheelchair "Fragile skin "Having a chronic condition, such as diabetes or vascular disease "Inability to move certain parts of your body without assistance "Older age "Incontinence of urine or stool SYMPTOMS: "A reddened area that DOES NOT turn white when pressed on - this can be the beginning of a pressure ulcer "A blister, deep sore or a crater - these can be advanced pressure ulcers FIRST AID: "Relieve the pressure on this area "Keep the area clean and dry "Call your primary doctor if you see any of the above symptoms "DO NOT massage the area "DO NOT use a donut shaped or ring shaped pillow- these actually interfere with the blood flow and cause complications PREVENTION: "Check for pressure ulcers everyday "Change position at least every two hours to relieve pressure "Use items that help relieve pressure- pillows, sheepskin, foam padding, and powders. "Keep skin clean and dry "Eat healthy well balanced meals "Exercise daily IF YOU SEE ANY OF THESE SYMPTOMS WHILE IN THE HOSPITAL - TELL YOUR NURSE IMMEDIATELY. IF YOU SEE ANY OF THESE SYMPTOMS WHILE AT HOME OR HAVE ANY QUESTIONS OR CONCERNS ABOUT PRESSURE ULCERS - CALL YOUR PRIMARY DOCTOR IMMEDIATELY. Addendum: 08/20/21 at 1315 by Perla Tinoco RN Amended: Links added.
[2021-08-20] MEDS: metoclopramide 5 mg/ml inj IV SCH (16:00)
[2021-08-20] MEDS ORDERED: normal saline 1000ml 250 ML IV PRN (16:10)
[2021-08-20] MEDS ORDERED: albumin (human) 25% 100ml IV 200 ML IV PRN (16:10)
[2021-08-20] MEDS ORDERED: heparin 1,000unit/ml 10ml vial 10 ML IV ONE (16:10)
[2021-08-20] MEDS ORDERED: heparin 1,000 units/ml 10ml inj IV ONE (16:10)
[2021-08-20] MEDS ORDERED: ipratropium/albuterol 3ml nebule NEB PRN (16:10)
[2021-08-20 16:37] LABS: BASOPHILS % (AUTO) 0.3 % (0-1); EOSINOPHILS # (AUTO) 0.1 X10'3 (0-0.9); HEMATOCRIT 22.8 % (35.0-45.0); HEMOGLOBIN 7.4 g/dl (12.0-16.0); LYMPHOCYTES # (AUTO) 0.5 X10'3 (1.1-4.8); LYMPHOCYTES % (AUTO) 3.9 % (21-51); MEAN CORPUSCULAR HEMOGLOBIN 28.3 PG (27.0-31.0); MEAN CORPUSCULAR HGB CONC 32.6 g/dL (33.0-36.5); MEAN CORPUSCULAR VOLUME 86.8 FL (78-98); MEAN PLATELET VOLUME 8.4 FL (7.4-10.4); MONOCYTES # (AUTO) 0.7 X10'3 (0-0.9); NEUTROPHILS # (AUTO) 11.9 X10'3 (1.8-7.7); NEUTROPHILS % (AUTO) 89.8 % (42-75); PLATELET COUNT 188 X10'3 (140-440); RED BLOOD COUNT 2.62 X10'6 (4.20-5.60); RED CELL DISTRIBUTION WIDTH 18.7 % (11.5-14.5); WHITE BLOOD COUNT 13.3 X10'3 (4.5-11.0)
[2021-08-20 17:10] LABS: HYPOCHROMASIA 1+; PLATELET ESTIMATE NORMAL; SCHISTOCYTES FEW
[2021-08-20 17:11] LABS: BURR CELLS FEW
[2021-08-20] MEDS: insulin glargine (Lantus) pen - multi-dose SQ SCH (21:24)
[2021-08-20] MEDS: CADD PCA waste documentation MC SCH (21:41)
[2021-08-20] MEDS ORDERED: albumin (human) 25% 100 ML IV solution IV ONE (23:20)
[2021-08-20] MEDS ORDERED: NORepinephrine 8mg/ 250ml NS 250 ML IV ONE (23:20)
[2021-08-21] VITALS (44 sets, daily range): BP systolic 80–195; BP diastolic 33–117
[2021-08-21] MEDS: insulin regular, human U-100 3ml vial - multi-dose SQ SCH ×3 (01:46→21:14)
[2021-08-21 02:41] LABS: BASOPHILS % (AUTO) 0.4 % (0-1); EOSINOPHILS # (AUTO) 0.1 X10'3 (0-0.9); EOSINOPHILS % (AUTO) 1.2 % (0-6); LYMPHOCYTES # (AUTO) 0.4 X10'3 (1.1-4.8); LYMPHOCYTES % (AUTO) 4.3 % (21-51); MEAN CORPUSCULAR HEMOGLOBIN 29.1 PG (27.0-31.0); MEAN CORPUSCULAR HGB CONC 33.3 g/dL (33.0-36.5); MEAN CORPUSCULAR VOLUME 87.3 FL (78-98); MEAN PLATELET VOLUME 8.5 FL (7.4-10.4); MONOCYTES # (AUTO) 0.4 X10'3 (0-0.9); MONOCYTES % (AUTO) 3.8 % (2-12); NEUTROPHILS # (AUTO) 8.3 X10'3 (1.8-7.7); NEUTROPHILS % (AUTO) 90.3 % (42-75); PLATELET COUNT 161 X10'3 (140-440); RED CELL DISTRIBUTION WIDTH 18.6 % (11.5-14.5); WHITE BLOOD COUNT 9.2 X10'3 (4.5-11.0)
--- NOTE | 2021-08-21 02:46 | NUR ---
61 yo female, Transferred back from [facility] on 08/11/2021 s/p trach, day 10 of hospitalization, multiple allergies, full code. This patient had initially been admitted to [facility] with previous admission multiple day prior to transfer to [facility] for trach. Admitted with Acute hypoxic respiratory failure, requiring emergent intubation, newly diagnosed with SCLCA, Received one cycle of chemo and started radiation. GUERDA from TLS, on HD. HCAP. Neutropenic on Vancomycin and Cefepime. Sepsis requiring pressors. Thrombocytopenia. Afib on Amiodarone. She is a transfer back from [facility] where she had a tracheostomy placed under ENT guidance due to tracheal stenosis. Currently, pt is in room 2012, AA with periods of confusion, Morphine infusing via CADD pump at .5 mg/hr. Due to BP issues around 2300, stopped Precedex around 0200. Pt moves all extremities with notable generalized weakness. follows simple commands. Pt is on Amiodarone at .5mg/min, HR is 70'-115, most times in SR with periods of AF after PVC. BP issues (64/29) required Albumin 200 ml's and start Levophed to be started titrated to MAP of 60 (vital signs and titration documentation under infusions). All IVF infusing via RIJ QLC WITH ONE PORT BLOCKED, dressing clean dry intact. Pt with #8.0 Trach at beginning of shift was on T-Piece then placed on CPAP at 2100 at 2200 vent turned onto AC/PRVC rate 16, TV 400+/-, Fio2 35% PEEP 5. Breath sounds, coarse, diminished equal symmetrical, non labored. Hypoactive bowel sounds, soft, rounded, non tender. Corpak, left nare, infusing Vital HP 40 ml's hr. with glucose checks Q 6 hours. Total carbs are 27. Glucose at 2000 185 and at 0200 181 both instances pt required 6 units of Regular insulin (3 units correctional and 3 units and 3 units nutritional). Pt is anuric, due for HD today, 08/26/2021. This morning Hgb 6.7, Hct 20.1. Pt has dried scab abrasion on front scalp. She did not want to turn or move, so I propped her as best as I could for her comfort. Currently pt is comfortable and resting well and remains safe with call light at her reach. updated. Continue to monitor. Addendum: 08/21/21 at 0544 by Lester Hall RN Pts Hgb 6.[address] Thapa ordered 1 u PRBC during dialysis. 0545 Pt c/o chest pain, EKG ordered. Addendum: 08/21/21 at 0602 by Lester Hall RN [address] Chapman, EKG looks unchanged rapid AFIB, give 1 unit blood now and one during Dialysis.
[2021-08-21 02:58] LABS: HEMATOCRIT 20.1 % (35.0-45.0); HEMOGLOBIN 6.7 g/dl (12.0-16.0)
[2021-08-21 03:01] LABS: ALANINE AMINOTRANSFERASE 11 U/L (12-78); ALBUMIN 2.8 G/DL (3.4-5.0); ALKALINE PHOSPHATASE 58 IU/L (46-116); ANION GAP 15 (8-16); ASPARTATE AMINO TRANSFERASE 18 U/L (10-37); BILIRUBIN,TOTAL 0.9 MG/DL (0.1-1.0); BLOOD UREA NITROGEN 37 MG/DL (7-18); BUN/CREATININE RATIO 8.1 (6.6-38.0); CALCIUM 8.6 MG/DL (8.5-10.1); CHLORIDE 97 MMOL/L (99-107); CREATININE 4.57 MG/DL (0.40-0.90); GLUCOSE 200 MG/DL (70-104); PHOSPHORUS 2.6 MG/DL (2.3-4.5); POTASSIUM 3.3 MMOL/L (3.5-5.1); SODIUM 137 MMOL/L (135-145); TOTAL CARBON DIOXIDE 25.4 MMOL/L (24-32); TOTAL PROTEIN 5.5 G/DL (6.4-8.2); eGFR 10 ML/MIN
[2021-08-21] MEDS: amiodarone/D5 360MG/200ML BAG 200 ML IV SCH ×4 (03:35→21:16)
[2021-08-21 04:35] LABS: ANISOCYTOSIS 2+; PLATELET ESTIMATE NORMAL
[2021-08-21 04:42] LABS: POLYCHROMASIA 1+
[2021-08-21 04:43] LABS: SCHISTOCYTES FEW; TARGET CELLS FEW
[2021-08-21] MEDS: morphine/NS 1 mg/ml 50ml CADD 50 ML IV SCH ×9 (07:00→23:00)
[2021-08-21] MEDS ORDERED: magnesium 2GM in 50ml NS 50 ML IV PRN (07:10)
[2021-08-21] MEDS ORDERED: potassium CL 10mEq/100ml bag 100 ML IV PRN (07:10)
[2021-08-21] MEDS: K and/or MAG REPLACEMENT MC SCH (07:23)
[2021-08-21] MEDS: piperacillin/tazo 3.375gm/50ml 50 ML IV SCH ×2 (07:36→19:30)
[2021-08-21] MEDS: ESCITALOPRAM OXALATE 5 MG TABLET NG SCH (07:36)
[2021-08-21] MEDS: gabapentin 100mg capsule NG SCH (07:36)
[2021-08-21] MEDS: metoclopramide 5 mg/ml inj IV SCH ×3 (07:36→16:00)
[2021-08-21] MEDS: midodrine tablet 2.5 MG TABLET NG SCH (07:36)
[2021-08-21] MEDS: atorvastatin 20mg tablet NG SCH (07:36)
[2021-08-21] MEDS: lansoprazole 15mg solutab NG SCH (07:36)
[2021-08-21] MEDS: allopurinol 100mg tablet NG SCH (07:37)
[2021-08-21] MEDS: levoTHYROXINE 25mcg tablet NG SCH (07:37)
[2021-08-21] MEDS: apixaban 5mg tablet PO SCH ×2 (07:37→19:31)
[2021-08-21] MEDS: potassium Cl 20mEq/100mL bag 100 ML IV PRN ×2 (07:38→10:12)
[2021-08-21] MEDS ORDERED: apixaban 5mg tablet PO SCH (08:00)
[2021-08-21] MEDS: LIDOcaine 5% patch TP SCH ×3 (08:00→21:07)
[2021-08-21] MEDS ORDERED: heparin 1,000 units/ml 10ml inj HE ONE (09:55)
[2021-08-21] MEDS ORDERED: mineral oil 133ml enema RC ONE (11:30)
--- NOTE | 2021-08-21 11:36 | NUR ---
Reassessment: Pt remains intubated via trach and receiving TF at 40 mL/hr despite goal rate of 60 mL/hr. Per RN at critical care rounds TF was off when she took over pt care this morning. okays advancing TF to goal rate. Pt still with no BM after receiving one time dose of Lactulose and PRN MoM 08/20. Pt was to receive a mineral oil enema 08/20 however was not given d/t not being needed per EMR, despite pt not having a BM. Pt started on IV Reglan 08/20 and to receive fleets enema today per MD at critical care rounds. Will continue to follow closely and make recommendations as appropriate. 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
[2021-08-21] MEDS: NORepinephrine 8mg/ 250ml NS 250 ML IV SCH (11:39)
[2021-08-21] MEDS ORDERED: albumin (human) 25% 100ml IV 200 ML IV PRN (12:25)
[2021-08-21] MEDS: amiodarone 200mg tablet PO SCH ×2 (12:53→19:30)
[2021-08-21] MEDS: midodrine 5mg tablet PO SCH ×2 (12:53→16:00)
[2021-08-21] MEDS ORDERED: amiodarone 150mg/dext, iso-os 100 ML IV ONE (15:20)
--- NOTE | 2021-08-21 15:37 | NUR ---
after HD patient converted into rapid afib, made aware received x1 bolus of amiodarone.
[2021-08-21] MEDS ORDERED: albumin (Human) 5% 250ml 250 ML IV ONE ×2 (17:00)
[2021-08-21] MEDS ORDERED: albumin (Human) 5% 250ml 500 ML IV ONE (17:03)
--- NOTE | 2021-08-21 17:50 | NUR ---
PATIENT RECEIVED HD TREATMENT THIS MORNING, DURING HD PATIENT WAS VERY SLEEPY PRECEDEX AND MORPHINE WERE STOPPED; HR IN THE 60'S AND BP IN THE LOW 80'S, ALBUMIN WAS GIVEN DURING HD FOR BLOOD PRESSURE SUPPORT. PRIOR TO HD HGB 6.7 RECEIVED 1 UNIT OF PRBCS AND K 3.3 RECEIVED 40 MEQ. POST HD PATIENT WOKE UP AND HR INCREASED INTO THE 130'S AND SBP IN THE 200'S MD WAS CALLED TO BEDSIDE EKG DONE WHICH SHOWED NORMAL AND TROPONINS ORDERED Q6H. POST HD PATIENT HR HAS BEEN DROPPING INTO THE 40'S AND THEN INCREASING BACK INTO THE 80-90'S AND UP TO 120, BLOOD PRESSURE HAS ALSO BEEN DOWN INTO THE 80'S AND THEN BACK UP GREATER THAN 180. IS AWARE CARDIOLOGY ON BOARD, DR JONES DID STOP BY TO SEE PATIENT BRIEFLY. AT THIS TIME PRECEDEX, MORPHINE, AMIODARONE AND LEVOPHED CURRENTLY OFF. WILL CONTINUE TO MONITOR PER .
[2021-08-21 18:45] LABS: BASOPHILS % (AUTO) 0.3 % (0-1); EOSINOPHILS # (AUTO) 0.1 X10'3 (0-0.9); EOSINOPHILS % (AUTO) 1.4 % (0-6); LYMPHOCYTES # (AUTO) 0.4 X10'3 (1.1-4.8); LYMPHOCYTES % (AUTO) 4.2 % (21-51); MEAN CORPUSCULAR HEMOGLOBIN 28.9 PG (27.0-31.0); MEAN CORPUSCULAR HGB CONC 33.4 g/dL (33.0-36.5); MEAN CORPUSCULAR VOLUME 86.5 FL (78-98); MEAN PLATELET VOLUME 8.3 FL (7.4-10.4); MONOCYTES # (AUTO) 0.3 X10'3 (0-0.9); MONOCYTES % (AUTO) 3.5 % (2-12); NEUTROPHILS # (AUTO) 7.5 X10'3 (1.8-7.7); NEUTROPHILS % (AUTO) 90.6 % (42-75); PLATELET COUNT 156 X10'3 (140-440); RED BLOOD COUNT 2.37 X10'6 (4.20-5.60); RED CELL DISTRIBUTION WIDTH 17.7 % (11.5-14.5); WHITE BLOOD COUNT 8.3 X10'3 (4.5-11.0)
[2021-08-21 18:49] LABS: HEMATOCRIT 20.5 % (35.0-45.0); HEMOGLOBIN 6.8 g/dl (12.0-16.0)
[2021-08-21] MEDS: dexmedetomidine/D5W 100mL 100 ML IV SCH (20:16)
[2021-08-21] MEDS: insulin glargine (Lantus) pen - multi-dose SQ SCH (21:15)
[2021-08-22] VITALS (34 sets, daily range): BP systolic 78–288; BP diastolic 40–160
[2021-08-22] MEDS: metoclopramide 5 mg/ml inj IV SCH ×3 (00:18→16:00)
[2021-08-22] MEDS: NORepinephrine 8mg/ 250ml NS 250 ML IV SCH ×2 (00:18→12:07)
--- NOTE | 2021-08-22 00:56 | NUR ---
61 yo female, Transferred back from [facility] on 08/11/2021 s/p trach, day 10 of hospitalization, multiple allergies, full code. This patient had initially been admitted to [facility] with previous admission multiple day prior to transfer to [facility] for trach. Admitted with Acute hypoxic respiratory failure, requiring emergent intubation, newly diagnosed with SCLCA, Received one cycle of chemo and started radiation. GUERDA from TLS, on HD. HCAP. Neutropenic on Vancomycin and Cefepime. Sepsis requiring pressors. Thrombocytopenia. Afib on Amiodarone. She is a transfer back from 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 Currently, pt is in room 2012, AA with periods of confusion, Notable pain Pt sates her back is in pain, Morphine infusing via CADD pump increased from .5 mg to 1 mg/hr. Precedex titrated to Blood pressure tolerance. Pt moves all extremities with notable generalized weakness. follows simple commands. HR is 70'-115, SR, HR will fo into the 130-140 when patient is awake and in pain. periods of AF with PVC. BP issues, restarted Levophed, Pt is super sensitive to Levophed. Titration started at .003mcgs. and titrated to MAP of 60 (vital signs and titration documentation under infusions). All IVF infusing via RIJ QLC WITH ONE PORT BLOCKED, dressing clean dry intact. Pt with #8.0 Trach vent AC/PRVC rate 16, TV 400+/-, Fio2 35% PEEP 5. Breath sounds, coarse, diminished equal symmetrical, non labored. Hypoactive bowel sounds, soft, rounded, non tender. Corpak, left nare, infusing Vital HP 50 ml's hr. with glucose checks Q 6 hours. Total carbs are 34. Glucose at 2100 was 193. Pt is anuric. Pt had 2 units PRBC infused during Dialysis. 1900 CBC Hgb 6.7, Per Dr Thapa, transfused 1 unit PRBC recheck CBC in the AM. Pt has dried scab abrasion on front scalp. She did not want to turn or move, so I propped her as best as I could for her comfort. Currently pt is comfortable and resting well and remains safe with call light at her reach. updated. Continue to monitor.
[2021-08-22] MEDS: morphine/NS 1 mg/ml 50ml CADD 50 ML IV SCH ×5 (01:00→09:00)
[2021-08-22] MEDS: insulin regular, human U-100 3ml vial - multi-dose SQ SCH ×2 (02:34→09:45)
[2021-08-22 03:01] LABS: BASOPHILS % (AUTO) 0.3 % (0-1); EOSINOPHILS # (AUTO) 0.1 X10'3 (0-0.9); EOSINOPHILS % (AUTO) 0.9 % (0-6); HEMATOCRIT 28.7 % (35.0-45.0); HEMOGLOBIN 9.4 g/dl (12.0-16.0); LYMPHOCYTES # (AUTO) 0.8 X10'3 (1.1-4.8); MEAN CORPUSCULAR HEMOGLOBIN 28.3 PG (27.0-31.0); MEAN CORPUSCULAR HGB CONC 32.9 g/dL (33.0-36.5); MEAN PLATELET VOLUME 8.7 FL (7.4-10.4); MONOCYTES # (AUTO) 0.7 X10'3 (0-0.9); MONOCYTES % (AUTO) 4.9 % (2-12); NEUTROPHILS # (AUTO) 11.9 X10'3 (1.8-7.7); NEUTROPHILS % (AUTO) 87.9 % (42-75); PLATELET COUNT 208 X10'3 (140-440); RED BLOOD COUNT 3.34 X10'6 (4.20-5.60); RED CELL DISTRIBUTION WIDTH 17.5 % (11.5-14.5); WHITE BLOOD COUNT 13.6 X10'3 (4.5-11.0)
[2021-08-22 03:16] LABS: ALANINE AMINOTRANSFERASE 8 U/L (12-78); ALBUMIN 3.7 G/DL (3.4-5.0); ALBUMIN/GLOBULIN RATIO 1.3 (1.1-1.5); ALKALINE PHOSPHATASE 66 IU/L (46-116); ANION GAP 14 (8-16); ASPARTATE AMINO TRANSFERASE 11 U/L (10-37); BILIRUBIN,TOTAL 1.5 MG/DL (0.1-1.0); BLOOD UREA NITROGEN 26 MG/DL (7-18); CALCIUM 9.1 MG/DL (8.5-10.1); CHLORIDE 98 MMOL/L (99-107); CREATININE 3.25 MG/DL (0.40-0.90); GLUCOSE 204 MG/DL (70-104); POTASSIUM 3.7 MMOL/L (3.5-5.1); SODIUM 136 MMOL/L (135-145); TOTAL CARBON DIOXIDE 24.5 MMOL/L (24-32); TOTAL PROTEIN 6.6 G/DL (6.4-8.2); eGFR 14 ML/MIN
[2021-08-22 03:20] LABS: MAGNESIUM 1.8 MG/DL (1.5-2.4); PHOSPHORUS 1.7 MG/DL (2.3-4.5)
[2021-08-22] MEDS: amiodarone/D5 360MG/200ML BAG 200 ML IV SCH (03:35)
[2021-08-22] MEDS: K and/or MAG REPLACEMENT MC SCH (08:00)
[2021-08-22] MEDS: dexmedetomidine/D5W 100mL 100 ML IV SCH ×2 (08:00→16:30)
[2021-08-22] MEDS: ESCITALOPRAM OXALATE 5 MG TABLET NG SCH (09:00)
[2021-08-22] MEDS: apixaban 5mg tablet PO SCH ×2 (09:00→19:50)
[2021-08-22] MEDS: lansoprazole 15mg solutab NG SCH (09:00)
[2021-08-22] MEDS: gabapentin 100mg capsule NG SCH (09:00)
[2021-08-22] MEDS: allopurinol 100mg tablet NG SCH (09:00)
[2021-08-22] MEDS: atorvastatin 20mg tablet NG SCH (09:00)
[2021-08-22] MEDS: levoTHYROXINE 25mcg tablet NG SCH (09:00)
[2021-08-22] MEDS: piperacillin/tazo 3.375gm/50ml 50 ML IV SCH ×2 (09:00→19:50)
[2021-08-22] MEDS ORDERED: heparin 1,000unit/ml 10ml vial 10 ML IV ONE (09:15)
[2021-08-22] MEDS ORDERED: heparin 1,000 units/ml 10ml inj IV ONE (09:15)
[2021-08-22] MEDS ORDERED: heparin 1,000 units/ml 10ml inj HE ONE (09:20)
[2021-08-22] MEDS: naltrexone 50mg tablet CORPAK SCH (09:30)
--- NOTE | 2021-08-22 09:30 | NUR ---
Dr. Cooper at bedside, kub done, patient complaining of abdominal pain, tube feeding off abdomen distended, bowel sounds hypoactive. Per Dr. Cooper keep feeding off, morphine drip off, ct abdomen ordered.
[2021-08-22] MEDS: niCARDipine-NS 40mg/200ml IVPB 200 ML IV PRN ×3 (09:43→16:41)
[2021-08-22] MEDS ORDERED: sodium phosphate inj. 30 MMOL in dextrose 5%-water 250 ML IV ONE (11:40)
[2021-08-22] MEDS ORDERED: labetalol 20mg/4ml (5mg/ml) syringe IV PRN (11:40)
[2021-08-22] MEDS ORDERED: methylnaltrexone br 12mg/0.6ml inj***SubQ only SQ ONE (11:40)
[2021-08-22] MEDS ORDERED: HYDROcodone/acetaminophen 7.5MG/325MG per 15ml UD CUP PO PRN (11:40)
[2021-08-22] MEDS: magnesium citrate 296ml oral solution PO ONE ×2 (11:40→12:56)
[2021-08-22] MEDS: lactulose 20gm/30ml cup PO SCH ×2 (12:56→19:49)
[2021-08-22] MEDS ORDERED: ondansetron/PF 4mg/2ml inj IV PRN (14:10)
[2021-08-22] MEDS ORDERED: midazolam 1 mg/ML 2ml injection ONE (14:28)
[2021-08-22] MEDS ORDERED: cefepime 1GM/NS ADD-VANTAGE 100 ML IV ONE (14:40)
[2021-08-22] MEDS ORDERED: cefepime inj. 0.5 GM in normal saline 100ml IV soln 100 ML IV PRN (14:45)
[2021-08-22 14:49] LABS: ABG BASE EXCESS -4.6 mmol/L (-2.0-2.0); ABG HCO3 20.8 mmol/L (22.0-26.0); ABG PCO2 (T) 38.9 mmHg (32.0-45.0); ABG PO2 (T) 60.9 mmHg (75.0-100.0); ALLEN'S TEST POSITIVE; FCOHb 0.1 % (0.0-3.9); FMetHb 0.4 % (0.0-1.5); FO2Hb 90.5 % (94-97); PATIENT TEMPERATURE 36.6; PEEP 10 cm H2O; RESPIRATORY RATE 16 b/min; TIDAL VOLUME 450 mL; TOTAL HEMOGLOBIN 10.5 G/dl (12.0-16.0)
[2021-08-22] MEDS ORDERED: vancomycin/NS 1 GM ADD-VANTAGE 250 ML IV PRN (14:50)
[2021-08-22] MEDS ORDERED: vancomycin/NS 1 GM ADD-VANTAGE 250 ML IV ONE (14:50)
[2021-08-22] MEDS ORDERED: cefepime 1GM/NS ADD-VANTAGE 100 ML IV SCH (16:00)
--- NOTE | 2021-08-22 16:57 | NUR ---
1345 Patient had an extra large liquid bowel movement, rectal tube placed. Cleaned, all linen changed, shortly after patient began to vomit bile looking emesis. Ng was placed and set to intermittent suction. Per Dr. Ordaz Addendum: 08/22/21 at 1702 by Loreto Hall RN PER DR ASCENCIO KEEP TUBE FEEDING OFF!!!!!!!
[2021-08-22] MEDS: CADD PCA waste documentation MC SCH (18:30)
[2021-08-22] MEDS: metoprolol tartrate 25mg tablet PO SCH (19:49)
[2021-08-22] MEDS: amiodarone 200mg tablet PO SCH (19:50)
[2021-08-22] MEDS ORDERED: VANCOMYCIN 1,250mg inj. 1,250 GM in dextrose 5%-water 250 ML IV SCH (20:00)
[2021-08-22 20:52] LABS: AMYLASE 26 U/L (25-115); LIPASE 67 U/L (73-393)
[2021-08-22] MEDS: insulin glargine (Lantus) pen - multi-dose SQ SCH (22:33)
[2021-08-23] VITALS (25 sets, daily range): BP systolic 115–162; BP diastolic 54–99
[2021-08-23] MEDS: NORepinephrine 8mg/ 250ml NS 250 ML IV SCH (00:21)
--- NOTE | 2021-08-23 00:24 | NUR ---
61 yo female, Transferred back from [facility] on 08/11/2021 s/p trach, day 11 of hospitalization, multiple allergies, full code. This patient had initially been admitted to [facility] with previous admission multiple day prior to transfer to [facility] for trach. Admitted with Acute hypoxic respiratory failure, requiring emergent intubation, newly diagnosed with SCLCA, Received one cycle of chemo and started radiation. GUERDA from TLS, on HD. HCAP. Neutropenic on Vancomycin and Cefepime. Sepsis requiring pressors. Thrombocytopenia. Afib on Amiodarone. 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 Currently, Afebrile, complete change of mental status, Stat CT Head completed, Neg Results. Pupils 4 equal reactive, sluggish, does not not open eyes, does not follow commands. If you call out her name she will raise her eye brows after the second or third time calling her name. Remains with BLLE twitching. Frothy white sputum at the mouth. HR is 60's, SR. Pt was grossly hypertensive on day shift, Nicardipine gtt was started, titrated to maintain SBP < 160. All IVF infusing via RIJ QLC WITH ONE PORT BLOCKED, dressing clean dry intact. Pt with #8.0 Trach vent AC/PRVC rate 16, TV 500+/-, Fio2 90% PEEP 10. Breath sounds, coarse, diminished, equal, symmetrical, non labored. Hypoactive bowel sounds, Abdomen much more softer and not as distended as previous. Pt has Left nare NGT, LWIS, drained 1000 ml's Green bile. Corpak, left nare and clamped, Tube feeding on hold, NPO. Pt started on Lactulose, Rectal tube in place draining brown stool. Glucose checks Q 6 hours, 1999 was 178, coverage was held due to NPO status. Lantus was given. Pt is anuric with dialysis orders for the AM. Edematous +4, weeping BLUE and left ankle. Pt has dried scab abrasion on front scalp. Blood cultures drawn and sent to lab. Continue with Zosyn, Started on Vancomycin and Cefepime. Currently resting and remains safe with call light at her reach. updated. Continue to monitor.
[2021-08-23] MEDS: metoclopramide 5 mg/ml inj IV SCH ×2 (00:52→10:31)
[2021-08-23] MEDS: dexmedetomidine/D5W 100mL 100 ML IV SCH (02:10)
[2021-08-23 02:31] LABS: BASOPHILS % (AUTO) 0.2 % (0-1); EOSINOPHILS % (AUTO) 0.2 % (0-6); HEMATOCRIT 26.5 % (35.0-45.0); HEMOGLOBIN 8.7 g/dl (12.0-16.0); LYMPHOCYTES # (AUTO) 0.5 X10'3 (1.1-4.8); LYMPHOCYTES % (AUTO) 4.3 % (21-51); MEAN CORPUSCULAR HEMOGLOBIN 28.1 PG (27.0-31.0); MEAN CORPUSCULAR VOLUME 85.4 FL (78-98); MEAN PLATELET VOLUME 8.7 FL (7.4-10.4); MONOCYTES # (AUTO) 0.5 X10'3 (0-0.9); MONOCYTES % (AUTO) 3.9 % (2-12); NEUTROPHILS # (AUTO) 10.9 X10'3 (1.8-7.7); NEUTROPHILS % (AUTO) 91.4 % (42-75); PLATELET COUNT 185 X10'3 (140-440); RED BLOOD COUNT 3.11 X10'6 (4.20-5.60); WHITE BLOOD COUNT 11.9 X10'3 (4.5-11.0)
[2021-08-23 02:52] LABS: ALANINE AMINOTRANSFERASE 7 U/L (12-78); ALBUMIN 2.8 G/DL (3.4-5.0); ALBUMIN/GLOBULIN RATIO 1.1 (1.1-1.5); ALKALINE PHOSPHATASE 58 IU/L (46-116); ANION GAP 16 (8-16); ASPARTATE AMINO TRANSFERASE 11 U/L (10-37); BLOOD UREA NITROGEN 34 MG/DL (7-18); BUN/CREATININE RATIO 8.5 (6.6-38.0); CALCIUM 8.7 MG/DL (8.5-10.1); CHLORIDE 100 MMOL/L (99-107); CREATININE 3.98 MG/DL (0.40-0.90); GLUCOSE 212 MG/DL (70-104); MAGNESIUM 1.9 MG/DL (1.5-2.4); PHOSPHORUS 4.3 MG/DL (2.3-4.5); POTASSIUM 3.3 MMOL/L (3.5-5.1); PREALBUMIN 12.2 MG/DL (19-36); SODIUM 139 MMOL/L (135-145); TOTAL CARBON DIOXIDE 23.2 MMOL/L (24-32); TOTAL PROTEIN 5.4 G/DL (6.4-8.2); VANCOMYCIN,RANDOM 17.2 UG/ML; eGFR 11 ML/MIN
[2021-08-23] MEDS ORDERED: VANCOMYCIN LEVEL IV SCH (03:00)
--- NOTE | 2021-08-23 06:30 | NUR ---
Patient in room CICU 2011. I have received report from Beni BALLESTEROS and had the opportunity to ask questions and assume patient care.
[2021-08-23] MEDS: levoTHYROXINE 25mcg tablet NG SCH (07:00)
[2021-08-23] MEDS: lactulose 20gm/30ml cup PO SCH (08:00)
[2021-08-23] MEDS: amiodarone 200mg tablet PO SCH (08:00)
[2021-08-23] MEDS: ESCITALOPRAM OXALATE 5 MG TABLET NG SCH (08:00)
[2021-08-23] MEDS: atorvastatin 20mg tablet NG SCH (08:00)
[2021-08-23] MEDS ORDERED: cefepime inj. 0.5 GM in normal saline 100ml IV soln 100 ML IV SCH (08:00)
[2021-08-23] MEDS: allopurinol 100mg tablet NG SCH (08:00)
[2021-08-23] MEDS: metoprolol tartrate 25mg tablet PO SCH (08:00)
[2021-08-23] MEDS: apixaban 5mg tablet PO SCH (08:00)
[2021-08-23] MEDS: K and/or MAG REPLACEMENT MC SCH (08:00)
[2021-08-23] MEDS: lansoprazole 15mg solutab NG SCH (08:00)
[2021-08-23] MEDS: naltrexone 50mg tablet CORPAK SCH (08:00)
[2021-08-23] MEDS: piperacillin/tazo 3.375gm/50ml 50 ML IV SCH (09:13)
[2021-08-23] MEDS ORDERED: MESSAGE TO NURSING IV SCH (10:00)
--- NOTE | 2021-08-23 10:30 | NUR ---
Dr. Cooper into see patient. Questioned patient if she wished to be comfort care. Patient clearly nodded her head yes. Discussion had with patient's , Michael, who is agreement with patient's wishes. Dr. Cifuentes and Dr. Mckinley are all in agreement.
[2021-08-23] MEDS: LIDOcaine 5% patch TP SCH (10:31)
[2021-08-23] MEDS: gabapentin 100mg capsule NG SCH (10:31)
[2021-08-23 11:09] LABS: HBSAG SCREEN Negative (Negative)
[2021-08-23] MEDS: LORazepam 2 mg/ml vial IV PRN ×5 (12:45→22:47)
--- NOTE | 2021-08-23 12:45 | NUR ---
Patient given Morphine 10mg bolus and started on Morphine gtt. Ativan 4 mg given. Patient removed from ventilator and placed on cool mist to trach. Patient's at bedside.
[2021-08-23] MEDS: morphine/NS 100mg/100ml bag 100 ML IV SCH ×3 (12:46→22:02)
--- NOTE | 2021-08-23 18:16 | NUR ---
Problems reprioritized. Patient report given, questions answered & plan of care reviewed with Mac RN.
--- NOTE | 2021-08-23 18:20 | NUR ---
Patient in room CICU 2011. I have received report from Marsha BALLESTEROS with Mac RN and had the opportunity to ask questions and assume patient care.
--- NOTE | 2021-08-23 19:15 | NUR ---
Patient grimacing and appears restless, heart rate and respirations increased. ativan given as ordered
[2021-08-24] VITALS (12 sets, daily range): BP systolic 107–175; BP diastolic 56–83
[2021-08-24] MEDS: morphine/NS 100mg/100ml bag 100 ML IV SCH ×4 (03:31→20:16)
--- NOTE | 2021-08-24 06:08 | NUR ---
Problems reprioritized. Patient report given to Marsha RN with Shaheen RN, questions answered & plan of care reviewed with .
--- NOTE | 2021-08-24 06:30 | NUR ---
Patient in room CICU 2011. I have received report from Mac RN and had the opportunity to ask questions and assume patient care.
[2021-08-24] MEDS: LORazepam 2 mg/ml vial IV PRN ×7 (07:12→16:24)
--- NOTE | 2021-08-24 09:01 | NUR ---
F/u: Pt has been made DNR with comfort care and TF orders discontinued. LB 08/23. Will continue to follow per LOS. Recommendations: 1) Bowel care per comfort care measures Addendum: 08/24/21 at [address] Amended: Links added.
--- NOTE | 2021-08-24 15:02 | NUR ---
Transferred to room 3020 via bed. Report given to Sabra BALLESTEROS. Patient continues on Morphine gtt @ 20 mg/hr and has been receiving Ativan 4 mg q1-2 hours. Occ restlessness with some dyspnea and wheezing. Patient will open eyes when in distress but does not track or follow commands. Meds help to calm patient and respiratory status. Vital signs remain stable with SpO2 in mid 80's with cool mist to trach. Patient's , Michael, accompanied patient on transfer. Patient has no belongings here at the hospital.
--- NOTE | 2021-08-24 18:27 | NUR ---
Problems reprioritized. Patient report given, questions answered & plan of care reviewed with LAREINE.
[2021-08-25] MEDS: morphine/NS 100mg/100ml bag 100 ML IV SCH ×2 (01:57→08:21)
[2021-08-25 02:00] VITALS: BP 154/70
[2021-08-25] MEDS: LORazepam 2 mg/ml vial IV PRN ×7 (02:03→23:18)
[2021-08-25 07:00] VITALS: BP 209/104
[2021-08-25] MEDS: HYDROMORPHONE IV SCH (14:29)
[2021-08-25] MEDS: NORMAL SALINE IV SCH (14:29)
[2021-08-25 18:00] VITALS: BP 147/66
[2021-08-25 22:00] VITALS: BP 133/64
[2021-08-26 02:00] VITALS: BP 146/74
[2021-08-26 06:00] VITALS: BP 137/67
--- NOTE | 2021-08-26 06:50 | NUR ---
Patient in room PCU 3020. I have received report from FAVIAN DOWD, and had the opportunity to ask questions and assume patient care.
[2021-08-26] MEDS: NORMAL SALINE IV SCH (15:39)
[2021-08-26] MEDS: HYDROMORPHONE IV SCH (15:39)
--- NOTE | 2021-08-26 15:45 | NUR ---
PT'S DILAUDID REFILLED WITH FAVIAN COURTNEY FROM [facility]. 7.5 ML OF DILAUDID WASTED. Addendum: 08/26/21 at 1548 by Ac Avina RN Witness refill of dilaudid and the waste amount of 7.5 mL.
[2021-08-26] MEDS: CADD PCA waste documentation MC SCH (16:02)
[2021-08-26 18:00] VITALS: BP 162/69
--- NOTE | 2021-08-26 18:42 | NUR ---
Problems reprioritized. Patient report given, questions answered & plan of care reviewed with FAVIAN ALLAN.
--- NOTE | 2021-08-27 01:20 | NUR ---
RN IS TO DOCUMENT YES TO ALL APPLICABLE AREAS Pronouncement of : 1. Time Physician Notified:Dr. Jalen Villanueva 2. Date of :08/27/2021 3. Time of : 107 4. DNR/Withdraw life support documented:yes 5. Monitor strip has been placed on chart: 6. Assessment process is of one-minute duration and includes following criteria: a) Patient is unresponsive to all stimuli: yes b) Pupils fixed and non-reactive:yes c) Auscultation of precordium reveals absence of heart tones:yes d) Auscultation of lungs reveals absence of breath sounds:yes e) Absence of blood pressure / all vital signs:yes f) QRS complexes are not present on monitor / EKG strip:yes g) Pacer spikes without capture:na 4. Comments: notified and came in.Donor network contacted same reference number.Jimbo and April called.Post mortem care done.
[2021-08-27] MEDS: CADD PCA waste documentation MC SCH (02:50)
--- NOTE | 2021-08-27 04:35 | NUR ---
Jimbo and April here,no belongings.Paper work signed
== END 2021-08-27 04:30 | DRG 853 ==
LOC: CICU 2S 23:28 → UNDOADMIN 23:28 → EEVIPCON 23:28 → CICU 2S 08-11 00:27 → EEVIPCON 08-11 00:27 → PCU 3S 08-24 14:55
PROVIDERS: ADMIT Psychiatry & Neurology Neurocritical Care; ATTEND Psychiatry & Neurology Neurocritical Care
PROC: 5A1955Z Respiratory Ventilation, Greater than 96 Consecutive Hours (ICD-10-PCS; principal; 2021-08-11)
PROC: 30233N1 Transfusion of Nonautologous Red Blood Cells into Peripheral Vein, Percutaneous Approach (ICD-10-PCS; 2021-08-11)
PROC: 5A1D70Z Performance of Urinary Filtration, Intermittent, Less than 6 Hours Per Day (ICD-10-PCS; 2021-08-11)
PROC: 5A1D70Z Performance of Urinary Filtration, Intermittent, Less than 6 Hours Per Day (ICD-10-PCS; 2021-08-14)
PROC: 0DJ64ZZ Inspection of Stomach, Percutaneous Endoscopic Approach (ICD-10-PCS; 2021-08-16)
PROC: 0DJ08ZZ Inspection of Upper Intestinal Tract, Via Natural or Artificial Opening Endoscopic (ICD-10-PCS; 2021-08-16)
PROC: 5A1D70Z Performance of Urinary Filtration, Intermittent, Less than 6 Hours Per Day (ICD-10-PCS; 2021-08-16)
PROC: 5A1D70Z Performance of Urinary Filtration, Intermittent, Less than 6 Hours Per Day (ICD-10-PCS; 2021-08-18)
PROC: 5A1D70Z Performance of Urinary Filtration, Intermittent, Less than 6 Hours Per Day (ICD-10-PCS; 2021-08-21)
DX: A41.4 Sepsis due to anaerobes (principal); E88.3 Tumor lysis syndrome; G93.41 Metabolic encephalopathy; J18.9 Pneumonia, unspecified organism; J96.21 Acute and chronic respiratory failure with hypoxia; N18.6 End stage renal disease; C34.90 Malignant neoplasm of unspecified part of unspecified bronchus or lung; E87.1 Hypo-osmolality and hyponatremia; E87.2 Acidosis; K56.7 Ileus, unspecified; Z68.41 Body mass index [BMI] 40.0-44.9, adult; I12.0 Hypertensive chronic kidney disease with stage 5 chronic kidney disease or end stage renal disease; K94.23 Gastrostomy malfunction; I82.622 Acute embolism and thrombosis of deep veins of left upper extremity; N17.9 Acute kidney failure, unspecified; D64.9 Anemia, unspecified; D70.9 Neutropenia, unspecified; E03.9 Hypothyroidism, unspecified; E11.65 Type 2 diabetes mellitus with hyperglycemia; E78.5 Hyperlipidemia, unspecified; E83.39 Other disorders of phosphorus metabolism; E87.6 Hypokalemia; I44.1 Atrioventricular block, second degree; I48.0 Paroxysmal atrial fibrillation; J38.6 Stenosis of larynx; J39.8 Other specified diseases of upper respiratory tract; J45.909 Unspecified asthma, uncomplicated; K21.9 Gastro-esophageal reflux disease without esophagitis; K29.80 Duodenitis without bleeding; K44.9 Diaphragmatic hernia without obstruction or gangrene; E79.0 Hyperuricemia without signs of inflammatory arthritis and tophaceous disease; I95.9 Hypotension, unspecified; R34 Anuria and oliguria; Z20.822 Contact with and (suspected) exposure to COVID-19; R50.81 Fever presenting with conditions classified elsewhere; Z66 Do not resuscitate; E11.22 Type 2 diabetes mellitus with diabetic chronic kidney disease; E66.01 Morbid (severe) obesity due to excess calories; D69.59 Other secondary thrombocytopenia; Y95 Nosocomial condition; M54.50 Low back pain, unspecified; F32.A Depression, unspecified; Z79.899 Other long term (current) drug therapy; Z82.49 Family history of ischemic heart disease and other diseases of the circulatory system; Z83.3 Family history of diabetes mellitus; Z51.5 Encounter for palliative care; Z87.01 Personal history of pneumonia (recurrent); Z87.891 Personal history of nicotine dependence; Z90.710 Acquired absence of both cervix and uterus; Z93.0 Tracheostomy status; Z98.84 Bariatric surgery status; Z99.2 Dependence on renal dialysis; Z88.2 Allergy status to sulfonamides; Z88.5 Allergy status to narcotic agent; Z92.21 Personal history of antineoplastic chemotherapy
CPT/HCPCS: Z7506; Z7508; 36415; 36430; 36600; 70450; 71045; 74018; 74176; 80053; 80076; 80202; 82150; 82728; 82803; 82948; 83036; 83540; 83550; 83605; 83690; 83735; 84100; 84134; 84439; 84443; 84484; 85007; 85008; 85018; 85025; 85045; 85610; 85730; 86885; 86900; 86901; 86920; 86945; 87040; 87070; 87324; 87340; 87449; 87635; 92508; 92616; 93005; 93970; 93971; 94003; 94640; 94760; 94799; 97110; 97161; 97530; 97535; A4215; A4618; C9113; G0257; G0378; J0282; J0692; J1170; J1644; J1815; J2060; J2212; J2250; J2270; J2274; J2543; J2765; J2916; J2997; J3370; J3475; J3480; J3490; J7050; J7060; P9016; P9045; P9047; Q0163; Q4081; S0020